=== PATIENT | female | born 1960 | race Caucasian/White ===

== ENCOUNTER 2016-11-17 20:51 | Inpatient (IN) | payer MEDICARE ==
[2016-11-17] MEDS ORDERED: MORPHINE SULFATE 10 MG/ML INJ IV ONE (21:31)
[2016-11-17] MEDS ORDERED: ONDANSETRON HCL INJ/PF 4 MG/2 ML SDV IV ONE (21:32)
--- NOTE | 2016-11-17 21:38 | ER Document Report ---
ED General - General Chief Complaint: Shortness Of Breath Stated Complaint: SHORTNESS OF BREATH Time Seen by Provider: 11/17/16 21:24 Notes: Patient is a 55-year-old female that comes emergency department for chief complaint of difficulty breathing, she states that this came on her suddenly about 2 hours ago where she felt like she could not inhale a full breath. She denies cough, wheezing, fever. She states she also feels like she has a painful band across the top of her abdomen which is new. She denies vomiting, diarrhea, states she had a normal bowel movement. Past medical history of cervical and uterine cancer, currently on chemotherapy, had her first dose, she is oncology in [place]. Only other reported medical history is hypertension. She denies ever smoking, she denies COPD or asthma, she denies recent lower extremity swelling, she denies history of blood clot. TRAVEL OUTSIDE OF THE [place] IN LAST 30 DAYS: No - Related Data Allergies/Adverse Reactions: No Known Allergies Allergy (Verified 11/17/16 20:56) Past Medical History - General Information source: Patient - Social History Smoking Status: Never Smoker Frequency of alcohol use: None Drug Abuse: None Lives with: Family Family History: Reviewed & Not Pertinent - Past Medical History Cardiac Medical History: Reports: Hx Hypertension Renal/ Medical History: Denies: Hx Peritoneal Dialysis Malignancy Medical History: Reports: Hx Cervical Cancer, Other - uterine cancer Musculoskeltal Medical History: Reports Hx Arthritis Past Surgical History: Reports: Hx Gastric Bypass Surgery, Hx Neurologic Surgery - CARPAL TUNNEL - Immunizations Hx Diphtheria, Pertussis, Tetanus Vaccination: Yes Review of Systems - Review of Systems Constitutional: See HPI EENT: No symptoms reported Cardiovascular: No symptoms reported Respiratory: See HPI Gastrointestinal: See HPI Genitourinary: No symptoms reported Female Genitourinary: No symptoms reported Musculoskeletal: No symptoms reported Skin: No symptoms reported Hematologic/Lymphatic: No symptoms reported Neurological/Psychological: No symptoms reported Physical Exam - Vital signs Vitals: Pulse Resp BP Pulse Ox 93 24 H 91/55 L 100 11/17/16 20:56 11/17/16 20:56 11/17/16 20:56 11/17/16 20:56 Interpretation: Normal - General General appearance: Appears well, Alert In distress: None - HEENT Head: Normocephalic, Atraumatic Eyes: Normal Pupils: PERRL - Respiratory Respiratory status: No respiratory distress. No: Labored Chest status: Nontender. No: Tender Breath sounds: Normal. No: Decreased air movement, Wheezing Chest palpation: Normal - Cardiovascular Rhythm: Regular. No: Tachycardia Heart sounds: Normal auscultation, S1 appreciated, S2 appreciated Murmur: No - Abdominal Inspection: Normal Distension: No distension Bowel sounds: Hypoactive Tenderness: Tender - Generalized tenderness in the upper abdomen Organomegaly: No organomegaly - Back Back: Normal, Nontender. No: Tender, CVA tenderness - Extremities General upper extremity: Normal inspection, Nontender, Normal color, Normal ROM , Normal temperature General lower extremity: Normal inspection, Nontender, Normal color, Normal ROM , Normal temperature, Normal weight bearing. No: Robin's sign - Neurological Neuro grossly intact: Yes Cognition: Normal Orientation: AAOx4 [place] Coma Scale Eye Opening: Spontaneous [place]im Coma Scale Verbal: Oriented Nasim Coma Scale Motor: Obeys Commands Nasim Coma Scale Total: 15 Speech: Normal Motor strength normal: LUE, RUE, LLE, RLE Sensory: Normal - Psychological Associated symptoms: Normal affect, Normal mood - Skin Skin Temperature: Warm Skin Moisture: Dry Skin Color: Normal Course - Re-evaluation Re-evalutation: On initial exam patient with no tachypnea or respiratory distress, clear lungs, no hypoxia on room air. She does have upper abdominal tenderness with slightly decreased bowel sounds. Patient has had multiple bowel surgeries including gastric bypass and has had bowel obstruction once before which was surgically repaired. As a result acute abdominal series performed, shows clear lungs, shows possible developing obstruction. CBC shows leukopenia likely secondary to therapy. Patient is afebrile, she is not tachycardic, blood pressure is slightly low. Patient is very well-appearing , nontoxic. Given IV fluids. Given pain medicine and nausea medicine on request. Chemistry showing acute renal insufficiency which is new for the patient. She has had decreased oral intake. Urinalysis obtained, shows evidence of infection , culture placed, given Rocephin. Tolerated contrast well, CAT scan performed, patient is asking for additional pain medicine, after this was given her blood pressure dropped slightly, will give additional fluids. CAT scan showing possible ileus with nonspecific distention of the transverse colon, no obstruction, no acute concerning abnormalities. Patient was discussed with Dr. Clements. Will discuss with Dr. Padilla for admission. Patient is very agreeable with this. Discussed with Dr. Padilla, patient will be admitted to the [facility]. - Vital Signs Vital signs: Temp Pulse Resp BP Pulse Ox 93 13 91/72 L 100 11/17/16 20:56 11/18/16 04:30 11/18/16 04:30 11/18/16 04:05 - Laboratory Result Diagrams: 11/17/16 21:30 11/18/16 03:14 Laboratory results interpreted by me: 11/17/16 11/17/16 11/17/16 21:30 21:30 21:30 WBC 2.8 L Hgb 11.1 L Hct 33.9 L RDW 17.5 H Eosinophils % 7.0 H Absolute Neutrophils 1.5 L D-Dimer Carbon Dioxide 21 L BUN 28 H Creatinine 2.28 H Est GFR ( Amer) 27 L Est GFR (Non-Af Amer) 22 L Glucose 122 H Direct Bilirubin 0.5 H Alkaline Phosphatase 136 H Total Protein 8.4 H TSH 8.84 H Urine Blood Ur Leukocyte Esterase Urine Ascorbic Acid 11/17/16 11/18/16 21:30 00:58 WBC Hgb Hct RDW Eosinophils % Absolute Neutrophils D-Dimer 3.28 H Carbon Dioxide BUN Creatinine Est GFR ( Amer) Est GFR (Non-Af Amer) Glucose Direct Bilirubin Alkaline Phosphatase Total Protein TSH Urine Blood SMALL H Ur Leukocyte Esterase LARGE H Urine Ascorbic Acid 40 H Discharge - Discharge Clinical Impression: Acute renal insufficiency Abdominal pain Qualifiers: Abdominal location: upper abdomen, unspecified Qualified Code(s): R10.10 - Upper abdominal pain, unspecified Urinary tract infection Qualifiers: Urinary tract infection type: site unspecified Qualified Code(s): N39.0 - Urinary tract infection, site not specified Condition: Fair Disposition: ADMITTED INPATIENT Admitting Provider: Hospitalist Unit Admitted: [facility]
[2016-11-17 21:40] LABS: ABSOLUTE EOSINOPHILS # (AUTO) 0.2 10^3/uL (0.0-0.6); ABSOLUTE LYMPHOCYTES (AUTO) 0.9 10^3/uL (0.5-4.7); ABSOLUTE MONOCYTES (AUTO) 0.2 10^3/uL (0.1-1.4); ABSOLUTE NEUT (AUTO) 1.5 10^3/uL (1.7-8.2); BASOPHILS % (AUTO) 0.9 % (0-2); HEMATOCRIT 33.9 % (36.0-47.0); HEMOGLOBIN 11.1 g/dL (12.0-15.5); HGB HCT DIFFERENCE -0.6; LYMPHOCYTES % (AUTO) 30.9 % (13-45); MEAN CORPUSCULAR HGB CONC 32.8 g/dL (32.0-36.0); MEAN CORPUSCULAR VOLUME 85 fl (80-97); MONOCYTES % (AUTO) 5.6 % (3-13); RED BLOOD COUNT 3.98 10^6/uL (3.72-5.28); RED CELL DISTRIBUTION WIDTH 17.5 % (11.5-14.0); SEGMENTED NEUTROPHILS % (AUTO) 55.6 % (42-78); WHITE BLOOD COUNT 2.8 10^3/uL (4.0-10.5)
[2016-11-17] MEDS ORDERED: NORMAL SALINE 1000 ML 1,000 ML IV ONE (22:11)
[2016-11-17 22:13] LABS: CREATINE KINASE MB 1.05 ng/mL (<4.55)
--- NOTE | 2016-11-17 22:13 | RADIOLOGY REPORT (SQ) ---
EXAM DESCRIPTION: ACUTE ABDOMEN SERIES COMPLETED DATE/TIME: 11/17/2016 9:57 pm REASON FOR STUDY: shortness of breath, upper abd pain, surgeries COMPARISON: None. NUMBER OF VIEWS: Three views. TECHNIQUE: Frontal chest, supine abdomen and upright/decubitus abdomen radiographic images acquired. LIMITATIONS: None. FINDINGS: CHEST: Lungs clear of infiltrates. FREE AIR: None. No abnormal gas collections. BOWEL GAS PATTERN: Multiple air and fluid filled bowel loops are identified with air-fluid levels on the erect film and I cannot exclude an early or developing small bowel obstruction. CALCIFICATIONS: No suspicious calcifications. HARDWARE: None in the abdomen. SOFT TISSUES: No gross mass or suggestion of organomegaly. BONES: No acute fracture. No worrisome bone lesions. OTHER: No other significant finding. IMPRESSION: Multiple air and fluid filled bowel loops as noted above with air-fluid levels on the er ect film and I cannot exclude an early or developing small bowel obstruction. TECHNICAL DOCUMENTATION: JOB ID: [id number] [employer]- All Rights Reserved
[2016-11-17 22:15] LABS: ALANINE AMINOTRANSFERASE 18 U/L (9-52); ALBUMIN 4.8 g/dL (3.5-5.0); ALKALINE PHOSPHATASE 136 U/L (38-126); ANION GAP 18 (5-19); ASPARTATE AMINO TRANSFERASE 35 U/L (14-36); BILIRUBIN,DIRECT 0.5 mg/dL (0.0-0.4); BILIRUBIN,TOTAL 0.5 mg/dL (0.2-1.3); BLOOD UREA NITROGEN 28 mg/dL (7-20); CALCIUM 9.2 mg/dL (8.4-10.2); CARBON DIOXIDE 21 mmol/L (22-30); CHLORIDE 103 mmol/L (98-107); CREATINE KINASE 52 U/L (30-135); CREATININE RESULT 2.28 mg/dL (0.52-1.25); GLUCOSE 122 mg/dL (75-110); LIPASE 123.6 U/L (23-300); POTASSIUM 4.4 mmol/L (3.6-5.0); SODIUM 141.5 mmol/L (137-145); TOTAL PROTEIN 8.4 g/dL (6.3-8.2)
[2016-11-17 22:18] LABS: TROPONIN I < 0.012 ng/mL
[2016-11-18] MEDS ORDERED: MORPHINE SULFATE 10 MG/ML INJ IV ONE ×2 (00:29→08:00)
[2016-11-18] MEDS ORDERED: NORMAL SALINE 1000 ML 1,000 ML IV ONE ×3 (00:29→03:31)
[2016-11-18 01:11] LABS: APPEARANCE,URINE CLOUDY; BILIRUBIN,URINE NEGATIVE (NEGATIVE); GLUCOSE, URINE NEGATIVE (NEGATIVE); KETONES,URINE NEGATIVE (NEGATIVE); LEUKOCYTE ESTERASE,URINE LARGE (NEGATIVE); NITRITE,URINE NEGATIVE (NEGATIVE); PROTEIN,URINE NEGATIVE (NEGATIVE); URINE SPECIFIC GRAVITY 1.028; UROBILINOGEN,URINE NEGATIVE mg/dL (<2.0)
--- NOTE | 2016-11-18 01:42 | RADIOLOGY REPORT (SQ) ---
EXAM DESCRIPTION: CT ABD/PELVIS ORAL ONLY COMPLETED DATE/TIME: 11/18/2016 1:18 am REASON FOR STUDY: upper abd pain, r/o bowel obstruction COMPARISON: CR, 11/17/2016. TECHNIQUE: CT scan of the abdomen and pelvis performed without intravenous or oral contrast. Images reviewed with lung, soft tissue, and bone windows. Reconstructed coronal and sagittal MPR images revi ewed. All images stored on PACS. All CT scanners at this facility use dose modulation, iterative reconstruction, and/or weight based d osing when appropriate to reduce radiation dose to as low as reasonably achievable (ALARA). [facility]: Dose Right [facility]: CareDose [facility]: Dose Right [facility]: Teradose 4D [facility]: Smart [employer] RADIATION DOSE: Up-to-date CT equipment and radiation dose reduction techniques were employed. CTDIv ol: 23.6 mGy. DLP: 1249 mGy-cm.mGy. LIMITATIONS: None. FINDINGS: LOWER CHEST: Small lingular atelectasis or scar. NON-CONTRASTED LIVER, SPLEEN, ADRENALS: Evaluation limited by lack of IV contrast. No identified sign ificant masses. Splenule. PANCREAS: No masses. No peripancreatic inflammatory changes. GALLBLADDER: Surgically absent. RIGHT KIDNEY AND URETER: No suspicious masses. Assessment limited by lack of IV contrast. No signif icant calcifications. No hydronephrosis or hydroureter. LEFT KIDNEY AND URETER: No suspicious masses. Assessment limited by lack of IV contrast. No signifi cant calcifications. No hydronephrosis or hydroureter. AORTA AND RETROPERITONEUM: No aneurysm. No retroperitoneal masses or adenopathy. BOWEL AND PERITONEAL CAVITY: Large colon measures up to 5.1 cm in diameter with air-fluid levels with in the transverse colon. Moderate-small left colonic and sigmoid stool retention. APPENDIX: No evidence of appendicitis. PELVIS, BLADDER, AND ABDOMINAL WALL:No abnormal masses. No free fluid. Bladder normal. BONES: Moderate L4-5 disc bulge. Small L3-4 disc bulge. OTHER: No other significant finding. IMPRESSION: Retained fluid within the large colon with mild to moderate nonspecific dilation of the large colon; differential etiologies include malabsorption, gastroenteritis, and nonspecific ileus. TECHNICAL DOCUMENTATION: JOB ID: [id number] Quality ID # [id number]: Final reports with documentation of one or more dose reduction techniques (e.g., Au tomated exposure control, adjustment of the mA and/or kV according to patient size, use of iterative reconstruction technique) 2010 [employer]- All Rights Reserved
[2016-11-18] MEDS ORDERED: CEFTRIAXONE 1 GM/D5W RTU 50 ML IV ONE (01:55)
[2016-11-18 02:30] LABS: ADD ON TESTING BLD IN LAB ACKNOWLEDGE
[2016-11-18 02:40] LABS: MAGNESIUM 2.3 mg/dL (1.6-2.3)
[2016-11-18] MEDS ORDERED: NORMAL SALINE 1000 ML 1,000 ML IV PRN ×2 (03:05→04:22)
[2016-11-18] MEDS ORDERED: IPRATROPIUM/ALBUTEROL 0.5-2.5 MG/3 ML AMPUL NEB PRN (03:08)
[2016-11-18] MEDS ORDERED: PHARMACY COMMUNICATION ORDER MC SCH (03:15)
[2016-11-18] MEDS ORDERED: ACETAMINOPHEN 325 MG TABLET PO PRN (03:16)
[2016-11-18] MEDS ORDERED: PROMETHAZINE HCL 25 MG TABLET PO PRN (03:16)
[2016-11-18 03:44] LABS: ANION GAP 13 (5-19); BLOOD UREA NITROGEN 31 mg/dL (7-20); CALCIUM 8.1 mg/dL (8.4-10.2); CARBON DIOXIDE 18 mmol/L (22-30); CHLORIDE 109 mmol/L (98-107); GLUCOSE 97 mg/dL (75-110); POTASSIUM 4.6 mmol/L (3.6-5.0); SODIUM 139.9 mmol/L (137-145)
--- NOTE | 2016-11-18 03:44 | PDOC H&P ---
History of Present Illness Admission Date/PCP: 11/18/16 02:[address] Su Christianson, [place] Onco Dr. Dumont, " Patient complains of: Shortness of breath upper abdominal pain History of Present Illness: KSENIA BROWN is a 55 year old female, who finished her first chemotherapy treatment November 08 of this year for combination of cervical and uterine cancer, who presents to the emergency room for sudden onset approximately 2 hours prior to presentation of combination of prominent shortness of breath and pronounced upper abdominal pain. Patient has been discussed with emergency room nurse practitioner who evaluated the patient. Patient was described as combination of burning and sharp, like a "painful band " across her upper abdomen. Certain movements perhaps made the pain worse. Now that the pain has mostly resolved, her shortness of breath has likewise resolved. Lowest systolic blood pressure is 84, obtained just prior to 2 AM, as patient was receiving 2 L bolus of normal saline. Pressures have responded nicely to IV fluids. Denies nausea vomiting, fever or chills, diarrhea or dysuria. Rare urinary tract infection. Status post total abdominal hysterectomy and likely bilateral salpingo- oophorectomy October 13 of this year. Has had a good appetite. No bowel movement for 3 days. However, she states she has been alternating between constipation and loose stools for some time now. Negative cardiac history other than hypertension, with no previous myocardial infarction, congestive heart failure, atrial flutter fibrillation, pulmonary embolus, or DVT. Status post gastric bypass in 2003, complicated by postoperative acute renal failure, with subsequent complete resolution of same, and no recurrence. Has also undergone exploratory laparotomy for small bowel obstruction, herniorrhaphy 2, along with cholecystectomy. Currently resting quietly. Still having some mild abdominal discomfort. Shortness of breath has completely resolved. Dictation via voice recognition software. Laboratory results are listed in [employer] and are reviewed. X-ray summary results are listed below, with full report(s) reviewed. . EKG reviewed and compared to a prior tracing from February 272014.. Social history/personal habits: . Retired. Has children. No use of alcohol tobacco or illicit drugs. No known drug allergies Home medications initially autopopulated into [employer] may not accurately reflect patient's true medications, dosages, and/or frequencies. semiconductor processing technician to reconcile medications. Unfortunately, patient not certain of all medications/dosages/frequencies. REVIEW OF SYSTEMS: Constitutional: No fever or chills. Eyes: No vision complaints. ENT: No swallowing problems or complaints. Partial hearing loss. Pulmonary: See history and present illness. Cardiovascular: No current complaints, including chest pain. Gastrointestinal: See history and present illness. Skin: No current complaints, including rashes. Hematologic: Denies easy bruising. Neurologic: No current complaints, including numbness or tingling. Musculoskeletal: Joint pain from arthritis. Psychiatric: Denies anxiety or depression. Endocrine: No current complaints, including polyuria. Genitourinary: No current complaints, including dysuria. PHYSICAL EXAMINATION: 5 feet 2 inches tall. 73.8 kg. BMI 29.8 kg/m. Blood pressure 112/59. Pulse 92 and regular. Respirations are 17 and unlabored. 96 Percent saturation on room air. Temperature not recorded on chart; skin feels normothermic. Slightly overweight otherwise well-nourished well-developed though chronically ill-appearing female who appears a number of years older than her stated age. Pleasant awake alert and cooperative. Appears perhaps slightly fatigued. is present at her side; patient approves. Female emergency room nurse Es is present. Skin is warm and dry. No grossly obvious evidence of rash in areas of skin examined. No subcutaneous nodules palpated. ENT: Hearing grossly normal to normal conversation. Tongue midline on protrusion pink and slightly moist. Eyes: No scleral icterus. Pupils equal and reactive to light at [address] [place] conjunctivae. Neck is supple and nontender to gentle active range of motion and palpation. Midline trachea. No palpable thyroid nodule mass enlargement or tenderness. Lymphatic: No palpable cervical or clavicular nodes. Neck and lymphatic exams limited by patient body habitus. Psychiatric: Reasonable insight into acute and chronic medical issues. Oriented to time location and why here. Lungs: Auscultation reveals clear and equal breath sounds bilaterally. No use of accessory respiratory muscles. Cardiovascular: Heart regular rate and rhythm, without gallop murmur or rub. No carotid or abdominal aortic bruits. No ankle or pedal edema. Faintly palpable dorsalis pedis pulses. Abdomen:soft slightly distended with occasional bowel sounds. Very mild diffuse mostly upper abdominal discomfort to palpation. Certainly no evidence of guarding or peritoneal signs. Unable to adequately evaluate abdomen for masses or organomegaly due to distention and discomfort. Extremities: Feet are warm and dry. No calf tenderness to compression. No grossly obvious visual evidence of calf swelling. Gentle manipulation of lower extremities fails to reveal any obvious evidence of injury or instability to knees hips or ankles. Neurologic: Moves all 4 extremities grossly normally. Patellar reflexes absent. Absent Babinski. Light touch is intact at feet. Dorsiflexion and plantarflexion of feet 5 / 5 and symmetric. Past Medical History Cardiac Medical History: Reports: Hypertension Denies: Atrial Fibrillation, Congestive Heart Failure, DVT, Myocardial Infarction, Hyperlipidema, Pulmonary Embolism Pulmonary Medical History: Denies: Asthma, Chronic Obstructive Pulmonary Disease (COPD), Sleep Apnea EENT Medical History: Reports: Ears - Partial hearing loss Denies: Eyes, Throat Neurological Medical History: Denies: Hemorrhagic CVA, Ischemic CVA, Seizures Endocrine Medical History: Denies: Diabetes Mellitus Type 1, Diabetes Mellitus Type 2, Hyperthyroidism, Hypothyroidism Renal/ Medical History: Reports: Other - Rare urinary tract infection Malignancy Medical History: Reports: Cervical Cancer, Other - Uterine GI Medical History: Denies: Cirrhosis, Gastroesophageal Reflux Disease, Hepatitis, Peptic Ulcer Disease Musculoskeltal Medical History: Reports: Arthritis Skin Medical History: Reports: None Psychiatric Medical History: Reports: Depression - History of, General Anxiety Disorder - History of Denies: Alcohol Dependency, Substance Abuse, Tobacco Dependency Hematology: Reports: None Infectious Medical History: Denies: Hepatitis B, Hepatitis C Past Surgical History Past Surgical History: Reports: Cholecystectomy, Gastric Bypass Surgery, Herniorrhaphy - 2, Hysterectomy - September 2016 for combination uterine and cervical cancer., Other - Exploratory laparotomy for small bowel obstruction since gastric bypass Social History Information Source: Patient, Emergency Med Personnel, [facility] Lives with: Spouse/Significant other Smoking Status: Unknown if Ever Smoked Frequency of Alcohol Use: None Drugs: None - Advance Directive Resuscitation Status: Full Code Surrogate healthcare decision maker:: Family History Family History: Reviewed & Not Pertinent Parental Family History Reviewed: Yes - Father of multiple myeloma; mother of vascular disease. Children Family History Reviewed: Yes - Healthy Sibling(s) Family History Reviewed.: Yes - Healthy Medication/Allergy Home Medications: Dicyclomine HCl [Bentyl 10 mg Capsule] 10 mg PO Q12HP PRN 11/18/16 Escitalopram Oxalate [Lexapro 10 mg Tablet] 10 mg PO DAILY 11/18/16 Gabapentin 600 mg PO Q8 11/18/16 Lisinopril 40 mg PO DAILY 11/18/16 Ondansetron [Zofran Odt 4 mg Tablet] 8 mg PO Q8 11/18/16 Oxycodone HCl/Acetaminophen [Oxycodone-Acetaminophen 5-325] 1 each PO Q12HP PRN 11/18/16 Prochlorperazine Maleate [Compazine 10 mg Tablet] 10 mg PO Q6HP PRN 11/18/16 Zolpidem Tartrate [Ambien 5 mg Tablet] 5 mg PO HSP PRN 11/18/16 Levofloxacin [Levaquin 750 mg Tablet] 750 mg PO DAILY #5 tablet 11/22/16 Quetiapine Fumarate 25 mg PO QHS #0 11/22/16 Allergies/Adverse Reactions: No Known Allergies Allergy (Verified 11/17/16 20:56) Physical Exam Vital Signs: Temp Pulse Resp BP Pulse Ox 93 19 105/67 100 11/17/16 20:56 11/18/16 01:00 11/18/16 00:07 11/18/16 01:00 Intake & Output 11/17/16 11/18/16 11/19/16 00:59 00:59 00:59 Intake Total 120 Balance 120 Results Impressions: Acute Abdomen Series 11/17/16 21:31 IMPRESSION: Multiple air and fluid filled bowel loops as noted above with air- fluid levels on the erect film and I cannot exclude an early or developing small bowel obstruction. Abdomen/Pelvis CT 11/18/16 00:00 IMPRESSION: Retained fluid within the large colon with mild to moderate nonspecific dilation of the large colon; differential etiologies include malabsorption, gastroenteritis, and nonspecific ileus. Assessment & Plan - Diagnosis (1) ARF (acute renal failure) Qualifiers: Acute renal failure type: unspecified Qualified Code(s): N17.9 - Acute kidney failure, unspecified Is this a current diagnosis for this admission?: YesPlan: Suspect a side effect of chemotherapy. IV fluid. Serial chemistry. (2) Abdominal pain Qualifiers: Abdominal location: upper abdomen, unspecified Qualified Code(s): R10.10 - Upper abdominal pain, unspecified Is this a current diagnosis for this admission?: YesPlan: As needed pain medication. (3) Cervical cancer Qualifiers: Malignant neoplasm of cervix location: endocervix Qualified Code(s) : C53.0 - Malignant neoplasm of endocervix Is this a current diagnosis for this admission?: Yes (4) Hypotension Qualifiers: Hypotension type: unspecified hypotension type Qualified Code(s): I95.9 - Hypotension, unspecified Is this a current diagnosis for this admission?: YesPlan: Initially good response to IV fluid boluses. However, approximately long term through her third bolus, systolic pressures dropped into the low to mid 80s. Decision made to transfer patient to intensive care unit, along with Huynh catheter insertion. 85 critical-care minutes. (5) On antineoplastic chemotherapy Is this a current diagnosis for this admission?: YesPlan: Oncology consult. (6) SOB (shortness of breath) Is this a current diagnosis for this admission?: YesPlan: Likely simply secondary to her abdominal discomfort. However, with known malignancy, will check d-dimer, with ventilation perfusion lung scan if elevated. (7) Urinary tract infection Qualifiers: Urinary tract infection type: site unspecified Is this a current diagnosis for this admission?: YesPlan: Blood and urine cultures. Given hypotension, acute renal failure, and recent chemotherapy, will proceed with Zosyn. I have strongly encouraged patient not to get out of bed without notifying staff , to avoid a fall with injury. Knee high SCDs for DVT prophylaxis, along with subcutaneous heparin. Impression and plans were discussed with patient and , both of whom concur. (8) Uterine cancer Qualifiers: Malignant neoplasm of body of uterus location: unspecified location Is this a current diagnosis for this admission?: Yes (9) Septic shock Is this a current diagnosis for this admission?: YesPlan: Will add intravenous vancomycin also. Pharmacy to assist with dosing. - Time Critical Time spent with patient: 35 or more minutes Anticipated discharge: Home Within: Other - Inpatient Certification Based on my medical assessment, after consideration of the patient's comorbidities, presenting symptoms, or acuity I expect that the services needed warrant INPATIENT care.: Yes I certify that my determination is in accordance with my understanding of Medicare's requirements for reasonable and necessary INPATIENT services [42 CFR 412.3e].: Yes Medical Necessity: Need Close Monitoring Due to Risk of Patient Decompensation, Need For IV Fluids, Need For Continuous Telemetry Monitoring, Need for IV Antibiotics, Risk of Diagnosis Which Will Require Inpatient Eval/Care/Monitoring Post Hospital Care: D/C or Transfer Summary
[2016-11-18] MEDS ORDERED: PIPERACILLIN/TAZOBACTAM 3.375 GM VIAL IV PRN (03:45)
[2016-11-18] MEDS ORDERED: PIPERACILLIN SODIUM/TAZOBACTAM 3.375 GM in NORMAL SALINE 100 ML IV ONE (03:45)
[2016-11-18] MEDS ORDERED: GLUCAGON,HUMAN RECOMB 1 MG INJ IM PRN (04:17)
[2016-11-18] MEDS ORDERED: DEXTROSE 50%-WATER 25 GM/50 ML DISP.SYRIN IV PRN ×2 (04:17)
[2016-11-18] MEDS ORDERED: DEXTROSE 5%-WATER 250 ML with NOREPINEPHRINE BITARTRATE 4 MG IV PRN ×2 (04:17)
[2016-11-18] MEDS ORDERED: DEXTROSE 40% GEL 15 GM TUBE PO PRN ×2 (04:17)
[2016-11-18] MEDS ORDERED: ACETAMINOPHEN 650 MG SUPP.RECT PR PRN (04:20)
[2016-11-18] MEDS ORDERED: PROMETHAZINE HCL 25 MG SUPP.RECT PR PRN ×2 (04:21→08:59)
[2016-11-18] MEDS ORDERED: PIPERACILLIN/TAZOBACTAM 3.375 GM VIAL IV ONE (05:06)
[2016-11-18 05:58] LABS: ABSOLUTE EOSINOPHILS # (AUTO) 0.1 10^3/uL (0.0-0.6); ABSOLUTE LYMPHOCYTES (AUTO) 0.2 10^3/uL (0.5-4.7); ABSOLUTE MONOCYTES (AUTO) 0.1 10^3/uL (0.1-1.4); ABSOLUTE NEUT (AUTO) 0.2 10^3/uL (1.7-8.2); BASOPHILS % (AUTO) 1.3 % (0-2); EOSINOPHILS % (AUTO) 10.2 % (0-6); HEMATOCRIT 26.3 % (36.0-47.0); HGB HCT DIFFERENCE -0.2; LYMPHOCYTES % (AUTO) 37.4 % (13-45); MEAN CORPUSCULAR HEMOGLOBIN 28.1 pg (27.0-33.4); MEAN CORPUSCULAR HGB CONC 33.1 g/dL (32.0-36.0); MEAN CORPUSCULAR VOLUME 85 fl (80-97); MONOCYTES % (AUTO) 20.2 % (3-13); RED CELL DISTRIBUTION WIDTH 17.1 % (11.5-14.0); SEGMENTED NEUTROPHILS % (AUTO) 30.9 % (42-78)
[2016-11-18 06:07] LABS: HEMOGLOBIN 8.7 g/dL (12.0-15.5)
[2016-11-18 06:08] LABS: WHITE BLOOD COUNT 0.7 10^3/uL (4.0-10.5)
[2016-11-18 06:09] LABS: ANISOCYTOSIS 1+; BURR CELLS SLIGHT; OVALOCYTES SLIGHT; POIKILOCYTOSIS SLIGHT; SCHISTOCYTES SLIGHT; TEAR DROP CELLS SLIGHT; TOXIC GRANULATION 1+
--- NOTE | 2016-11-18 07:01 | RADIOLOGY REPORT (SQ) ---
EXAM DESCRIPTION: NM LUNG VENT/PERF SCAN COMPLETED DATE/TIME: 11/18/2016 6:25 am REASON FOR STUDY: elev d dimer COMPARISON: None. RADIONUCLIDE AND DOSE: 4.7 millicuries TC-99m MAA Intravenous 27.4 millicuries TC-99m DTPA Inhaled aerosol TECHNIQUE: Eight views of the lungs acquired post ventilation of DTPA aerosol. Eight matching views of the lungs acquired following injection of MAA. LIMITATIONS: None. FINDINGS: VENTILATION: Symmetric and homogeneous distribution of DTPA aerosol during ventilatory pha se. No significant areas of photopenia. PERFUSION: Perfusion images with normal homogenous activity and no wedge-shaped or segmental defects. No ventilation-perfusion mismatches. OTHER: No other significant finding. IMPRESSION: NORMAL VENTILATION-PERFUSION LUNG SCAN. NEGATIVE FOR PULMONARY EMBOLI. TECHNICAL DOCUMENTATION: JOB ID: [id number] [employer]- All Rights Reserved
[2016-11-18] MEDS ORDERED: VANCOMYCIN HCL 0 MG in DEXTROSE 5%-WATER 250 ML IV NR (07:30)
[2016-11-18 07:34] LABS: PROTHROMBIN TIME 13.4 SEC (11.4-15.4)
[2016-11-18 07:35] LABS: PARTIAL THROMBOPLASTIN TIME 33.2 SEC (23.5-35.8)
[2016-11-18 07:40] LABS: ANION GAP 13 (5-19); BLOOD UREA NITROGEN 27 mg/dL (7-20); CALCIUM 7.5 mg/dL (8.4-10.2); CARBON DIOXIDE 17 mmol/L (22-30); CHLORIDE 111 mmol/L (98-107); CREATININE RESULT 1.68 mg/dL (0.52-1.25); GLUCOSE 81 mg/dL (75-110); POTASSIUM 4.3 mmol/L (3.6-5.0); SODIUM 140.7 mmol/L (137-145)
--- NOTE | 2016-11-18 08:41 | PDOC CONSULTATION ---
Consultation Consult Date: 11/18/16 Attending physician:: LETI VÁSQUEZ Consult reason:: Known hx likely stage 3 cervical ca s/p cycle #1 quinault based chemo 1 wk ago w/ sepsis, abd pain, weakness, SOB History of Present Illness Admission Date/PCP: 11/18/16 03:08 Patient complains of: sepsis, abd pain, weakness, SOB History of Present Illness: 55-year-old female with recent diagnosis of what sounds like stage III cervical cancer, she has been seeing Dr. Jone [employer] Onc purvi,received cycle #1 of what sounds like quinault based chemotherapy, about 1 week ago, initially did well with that but over the last 2 days had increasing shortness of breath, weakness, abdominal pain, she did not have bowel movements for about 3 days prior to coming in, ultimately the shortness of breath got severe and she presented to the ED, at that time she was found to be hypertensive and tachycardic, CT of the abdomen pelvis indicated distention of the right colon concerning for early obstruction, but she did have a bowel movement yesterday in the ED mostly watery so she is not clinically obstructed. She was passing gas prior to coming in. She does have history of small bowel obstruction, status post gastric bypass. She did not receive any Neulasta support with chemotherapy. The plan was for her to receive 3 cycles of chemotherapy followed by radiation followed by 3 further cycles of chemotherapy. This is a common sandwich type approach that we used for cervical cancer. Today she is neutropenic. She does officially for criteria for sepsis as well and is on broad-spectrum antibiotics with Zosyn and vancomycin. Past Medical History Cardiac Medical History: Reports: Hypertension Denies: Atrial Fibrillation, Congestive Heart Failure, DVT, Myocardial Infarction, Hyperlipidema, Pulmonary Embolism Pulmonary Medical History: Denies: Asthma, Chronic Obstructive Pulmonary Disease (COPD), Sleep Apnea EENT Medical History: Reports: Ears - Partial hearing loss Denies: Eyes, Throat Neurological Medical History: Denies: Hemorrhagic CVA, Ischemic CVA, Seizures Endocrine Medical History: Denies: Diabetes Mellitus Type 1, Diabetes Mellitus Type 2, Hyperthyroidism, Hypothyroidism Renal/ Medical History: Reports: Other - Rare urinary tract infection Malignancy Medical History: Reports: Cervical Cancer, Other - Uterine GI Medical History: Denies: Cirrhosis, Gastroesophageal Reflux Disease, Hepatitis, Peptic Ulcer Disease Musculoskeltal Medical History: Reports: Arthritis Skin Medical History: Reports: None Psychiatric Medical History: Reports: Depression - History of, General Anxiety Disorder - History of Denies: Alcohol Dependency, Substance Abuse, Tobacco Dependency Hematology: Reports: None Infectious Medical History: Denies: Hepatitis B, Hepatitis C Past Surgical History Past Surgical History: Reports: Cholecystectomy, Gastric Bypass Surgery, Herniorrhaphy - 2, Hysterectomy - September 2016 for combination uterine and cervical cancer., Other - Exploratory laparotomy for small bowel obstruction since gastric bypass Social History Lives with: Spouse/Significant other Smoking Status: Unknown if Ever Smoked Frequency of Alcohol Use: None Hx Recreational Drug Use: No Drugs: None - Advance Directive Resuscitation Status: Full Code Family History Family History: Reviewed & Not Pertinent Parental Family History Reviewed: Yes Children Family History Reviewed: Yes Sibling(s) Family History Reviewed.: Yes Medication/Allergy Allergies/Adverse Reactions: No Known Allergies Allergy (Verified 11/17/16 20:56) Review of Systems Constitutional: ABSENT: chills, fever(s), headache(s), weight gain, weight loss Eyes: ABSENT: visual disturbances Ears: ABSENT: hearing changes Cardiovascular: ABSENT: chest pain, dyspnea on exertion, edema, orthropnea, palpitations Respiratory: ABSENT: cough, hemoptysis Gastrointestinal: ABSENT: abdominal pain, constipation, diarrhea, hematemesis, hematochezia, nausea, vomiting Genitourinary: ABSENT: dysuria, hematuria Musculoskeletal: ABSENT: joint swelling Integumentary: ABSENT: rash, wounds Neurological: ABSENT: abnormal gait, abnormal speech, confusion, dizziness, focal weakness, syncope Psychiatric: ABSENT: anxiety, depression, homidical ideation, suicidal ideation Endocrine: ABSENT: cold intolerance, heat intolerance, polydipsia, polyuria Hematologic/Lymphatic: ABSENT: easy bleeding, easy bruising Physical Exam Vital Signs: Temp Pulse Resp BP Pulse Ox 97.5 F 87 24 H 101/58 L 100 11/18/16 08:00 11/18/16 08:00 11/18/16 08:00 11/18/16 08:00 11/18/16 08:00 Intake & Output 11/17/16 11/18/16 11/19/16 06:59 06:59 06:59 Intake Total 2120 Output Total 125 225 Balance 1994 Weight 77.2 kg General appearance: PRESENT: no acute distress, well-developed, well-nourished Head exam: PRESENT: atraumatic, normocephalic Eye exam: PRESENT: conjunctiva pink, EOMI, PERRLA. ABSENT: scleral icterus Ear exam: PRESENT: normal external ear exam Mouth exam: PRESENT: moist, tongue midline Neck exam: ABSENT: carotid bruit, JVD, lymphadenopathy, thyromegaly Respiratory exam: PRESENT: clear to auscultation kami. ABSENT: rales, rhonchi, wheezes Cardiovascular exam: PRESENT: RRR. ABSENT: diastolic murmur, rubs, systolic murmur Pulses: PRESENT: normal dorsalis pedis pul Vascular exam: PRESENT: normal capillary refill GI/Abdominal exam: PRESENT: normal bowel sounds, soft. ABSENT: distended, guarding, mass, organolmegaly, rebound, tenderness Rectal exam: PRESENT: deferred Extremities exam: PRESENT: full ROM. ABSENT: calf tenderness, clubbing, pedal edema Neurological exam: PRESENT: alert, awake, oriented to person, oriented to place , oriented to time, oriented to situation, CN II-XII grossly intact. ABSENT: motor sensory deficit Psychiatric exam: PRESENT: appropriate affect, normal mood. ABSENT: homicidal ideation, suicidal ideation Skin exam: PRESENT: dry, intact, warm. ABSENT: cyanosis, rash Results Laboratory Results: 11/18/16 05:11 11/18/16 07:12 11/18/16 11/18/16 11/18/16 03:14 03:14 05:11 WBC Cancelled 0.7 L* D RBC Cancelled 3.10 L Hgb Cancelled 8.7 L D Hct Cancelled 26.3 L MCV Cancelled 85 MCH Cancelled 28.1 MCHC Cancelled 33.1 RDW Cancelled 17.1 H Plt Count Cancelled 145 L Seg Neutrophils % Cancelled 30.9 L Lymphocytes % Cancelled 37.4 Monocytes % Cancelled 20.2 H Eosinophils % Cancelled 10.2 H Basophils % Cancelled 1.3 Absolute Neutrophils Cancelled 0.2 L Absolute Lymphocytes Cancelled 0.2 L Absolute Monocytes Cancelled 0.1 Absolute Eosinophils Cancelled 0.1 Absolute Basophils Cancelled 0.0 Sodium 139.9 Potassium 4.6 Chloride 109 H Carbon Dioxide 18 L Anion Gap 13 BUN 31 H Creatinine 2.00 H Est GFR ( Amer) 31 L Est GFR (Non-Af Amer) 26 L Glucose 97 Calcium 8.1 L 11/18/16 07:12 WBC RBC Hgb Hct MCV MCH MCHC RDW Plt Count Seg Neutrophils % Lymphocytes % Monocytes % Eosinophils % Basophils % Absolute Neutrophils Absolute Lymphocytes Absolute Monocytes Absolute Eosinophils Absolute Basophils Sodium 140.7 Potassium 4.3 Chloride 111 H Carbon Dioxide 17 L Anion Gap 13 BUN 27 H Creatinine 1.68 H Est GFR ( Amer) 38 L Est GFR (Non-Af Amer) 31 L Glucose 81 Calcium 7.5 L Impressions: Acute Abdomen Series 11/17/16 21:31 IMPRESSION: Multiple air and fluid filled bowel loops as noted above with air- fluid levels on the erect film and I cannot exclude an early or developing small bowel obstruction. Abdomen/Pelvis CT 11/18/16 00:00 IMPRESSION: Retained fluid within the large colon with mild to moderate nonspecific dilation of the large colon; differential etiologies include malabsorption, gastroenteritis, and nonspecific ileus. Lung Scan-VQ NM 11/18/16 03:46 IMPRESSION: NORMAL VENTILATION-PERFUSION LUNG SCAN. NEGATIVE FOR PULMONARY EMBOLI. Assessment & Plan - Diagnosis (1) Septic shock Is this a current diagnosis for this admission?: YesPlan: Likely secondary to Neutropenic fever probably chemotherapy induced, organism yet unknown but being covered for both gram-positive and gram-negative organisms , we will initiate Neupogen, she did not receive Neulasta, we will change Zosyn to cefepime which is less myelosuppressive with similar coverage, continue with vancomycin until patient is culture negative for 48 hours. Once her ANC is greater than 1000 and patient is afebrile for 24 hours, cefepime can be tapered thereafter. 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 (3) Anemia associated with chemotherapy Is this a current diagnosis for this admission?: YesPlan: Likely multifactorial but chemo induced certainly, hold on transfusion until hemoglobin gets under 7 unless transfusion needed for oncotic pressure. - Time Time Spent: Greater than 70 Minutes Critical Time spent with patient: 35 or more minutes - Inpatient Certification Based on my medical assessment, after consideration of the patient's comorbidities, presenting symptoms, or acuity I expect that the services needed warrant INPATIENT care.: Yes I certify that my determination is in accordance with my understanding of Medicare's requirements for reasonable and necessary INPATIENT services [42 CFR 412.3e].: Yes Medical Necessity: Failure to Improve With Outpatient Therapy, Need For Continuous Telemetry Monitoring, Need for IV Antibiotics, Risk of Complication if Not Cared For in Hospital
[2016-11-18] MEDS ORDERED: ONDANSETRON HCL INJ/PF 4 MG/2 ML SDV IV PRN (08:59)
[2016-11-18] MEDS ORDERED: PIPERACILLIN SODIUM/TAZOBACTAM 3.375 GM in NORMAL SALINE 100 ML IV SCH ×4 (09:00)
[2016-11-18] MEDS ORDERED: VANCOMYCIN HCL 1,750 MG in DEXTROSE 5%-WATER 250 ML IV ONE (09:00)
[2016-11-18] MEDS ORDERED: VANCOMYCIN HCL 750 MG in DEXTROSE 5%-WATER 250 ML IV SCH (09:00)
[2016-11-18] MEDS: HEPARIN SOD (PORCINE) 5,000 UNIT/ML 1 ML SYRINGE SUBCUT SCH ×2 (09:36→22:03)
[2016-11-18] MEDS: NORMAL SALINE 1000 ML 1,000 ML IV PRN ×2 (09:37→12:56)
[2016-11-18] MEDS: DOCUSATE SODIUM 100 MG CAPSULE PO SCH ×2 (09:38→18:10)
--- NOTE | 2016-11-18 09:48 | PROGRESS NOTE E ---
Progress Note NAME: KSENIA BROWN : 1960 AGE: 55Y DATE: 11/18/2016 ROOM: 611 SUBJECTIVE: The patient remains in ICU. The patient is currently receiving a bolus. Overall clinical picture does appear improved. The patient has not required vasopressors overnight. The patient does admit to having had a liquid bowel movement after receiving contrast for CT scan. The patient denies any current nausea, vomiting. No shortness of breath currently. No dizziness, chest pain. No fevers, chills. The patient does admit to epigastric abdominal pain but feels it may be related to a combination of constipation and her prior surgery. The patient has been seen by Oncology and the case was discussed with him at the bedside. The patient has not had any fevers or chills, and the patient does not voice any other concerns at this time. REVIEW OF SYSTEMS: The rest of the review of systems is negative. MEDICATIONS: Medications have been reviewed. OBJECTIVE: GENERAL: The patient is a 55-year-old female who is awake, alert. She is oriented to person, place, time, and situation. She is verbal, conversational, does not appear to be in any acute distress. VITAL SIGNS: As follows: Temperature is 97.5, pulse 87, respirations 15, blood pressure is 101/58, oxygen saturation is 100% on room air. SKIN: Warm and dry. No rash, not diaphoretic. She is overall just generally pale. HEENT: Pupils equal, round, and reactive to light and accommodation. Conjunctivae pink. No JVP. CARDIOVASCULAR: Heart is regular. There is no murmur or rub. CHEST: Clear, symmetrical, unlabored. ABDOMEN: No area of focal tenderness. Diffusely tender in the upper quads. Bowel sounds are present. No sacral edema. EXTREMITIES: No clubbing, cyanosis, edema. PSYCHIATRIC: Appropriate affect, pleasant mood. DIAGNOSTICS: Lab values are as follows. Hematology obtained on 11/18/2016: WBCs are 0.7, hemoglobin is 8.7, hematocrit is 26.3, platelet count is 145,000. Coagulation obtained on 11/18/2016: PT is 30.4, INR is 0.95. Chemistry obtained on 11/18/2016: Sodium is 140, potassium 4.3, chloride 111, carbon dioxide 17, BUN 27, creatinine 1.68, glucose 81, calcium is 7.5, TSH is 8.84. Microbiology: Blood cultures obtained on 11/18/2016 are pending. Urine culture obtained on 11/18/2016 is pending. V/Q scan obtained on 11/18/2016 reveals normal V/Q scan. IMPRESSION AND PLAN: 1. NEUTROPENIC SEPTIC SHOCK. Overall the patient is much improved. Blood pressures are much better with hydration and the patient has not required vasopressors. The patient has no evidence of bandemia and has been afebrile. 2. CONSTIPATION VERSUS EARLY ILEUS. The patient states she has had watery bowel movements since her CT scan. Will obtain a KUB for further evaluation. The patient is not overtly tender and has not had any vomiting. Will start the patient on a bowel regimen and follow. 3. ELEVATED TSH. Will obtain T4. 4. CERVICAL CANCER. Management is per Oncology. 5. ANEMIA ASSOCIATED WITH CHEMOTHERAPY. The patient's hemoglobin dipped to 8.7. Do appreciate Oncology input with this. 6. OPIATE DEPENDENCY, CONTINUOUS. The patient will need to be placed on a bowel regimen. Will review and most likely resume the patient's home medications. 7. HYPERTENSION. The patient's creatinine is elevated. Will hold JUANI inhibitor for now. The patient is actually hypotensive at this time. 8. ACUTE RENAL FAILURE, MOST LIKELY DUE TO PRERENAL AZOTEMIA. It does appear to have improved with boluses. Will continue to aggressively hydrate, repeat chemistries and follow. DISPOSITION: THE PATIENT IS A FULL CODE. Pending the patient's symptomatology and diagnostic findings, will re-evaluate in the a.m. The patient can be downgraded to an [facility] bed. Time spent on this followup, including assessment/plan, physical examination, patient education, and specialty collaboration, is 50 minutes. DICTATING PHYSICIAN: CHINA STRAUSS NP [id number] PHY#: [id number] ID: [id number] JOB#: [id number] ACCT: [id number] cc: >
--- NOTE | 2016-11-18 09:54 | RADIOLOGY REPORT (SQ) ---
EXAM DESCRIPTION: KUB/ABDOMEN (SINGLE VIEW) COMPLETED DATE/TIME: 11/18/2016 9:30 am REASON FOR STUDY: FU CT since BM COMPARISON: 11/17/2016 NUMBER OF VIEWS: One view. TECHNIQUE: Supine radiographic image of the abdomen acquired. LIMITATIONS: None. FINDINGS: BOWEL GAS PATTERN: Oral contrast, gas and fecal material within nondilated colon. CALCIFICATIONS: No suspicious calcifications. SOFT TISSUES: No gross mass or suggestion of organomegaly. HARDWARE: Huynh catheter overlying urinary bladder. BONES: No bone lesions or fracture. OTHER: No other significant finding. IMPRESSION: No evidence of bowel obstruction.
[2016-11-18 11:13] LABS: PATH REVIEW PATHOLOGIST REVIEWED
[2016-11-18] MEDS: OXYCODONE-ACETAMINOPHEN 5-325 MG TABLET PO PRN ×2 (11:56→18:23)
[2016-11-18] MEDS ORDERED: FILGRASTIM INJ 300 MCG/1 ML VIAL SUBCUT SCH (12:00)
[2016-11-18] MEDS ORDERED: PIPERACILLIN SODIUM/TAZOBACTAM 2.25 GM in NORMAL SALINE 50 ML IV SCH (12:00)
[2016-11-18] MEDS: GABAPENTIN 300 MG CAPSULE PO SCH ×2 (14:39→22:04)
--- NOTE | 2016-11-18 17:27 | EKG REPORT ---
SEVERITY:- ABNORMAL ECG - SINUS RHYTHM NONSPECIFIC T ABNORMALITIES, LATERAL LEADS : Confirmed by: Meli Rocha MD 18-Nov-2016 17:26:23
[2016-11-18] MEDS: CEFEPIME 2 GM/D5W RTU 2 GM/50 ML RTUPB IV SCH (18:09)
[2016-11-18] MEDS: QUETIAPINE FUMARATE 25 MG TABLET PO SCH (22:03)
[2016-11-19] MEDS: OXYCODONE-ACETAMINOPHEN 5-325 MG TABLET PO PRN ×4 (01:35→20:07)
[2016-11-19 04:41] LABS: MEAN CORPUSCULAR HGB CONC 33.2 g/dL (32.0-36.0); MEAN CORPUSCULAR VOLUME 84 fl (80-97); RED BLOOD COUNT 2.85 10^6/uL (3.72-5.28); RED CELL DISTRIBUTION WIDTH 17.7 % (11.5-14.0)
[2016-11-19 04:52] LABS: ALANINE AMINOTRANSFERASE 153 U/L (9-52); ALBUMIN 2.8 g/dL (3.5-5.0); ALKALINE PHOSPHATASE 155 U/L (38-126); ANION GAP 7 (5-19); ASPARTATE AMINO TRANSFERASE 124 U/L (14-36); BILIRUBIN,DIRECT 0.3 mg/dL (0.0-0.4); BILIRUBIN,TOTAL 0.3 mg/dL (0.2-1.3); BLOOD UREA NITROGEN 13 mg/dL (7-20); CALCIUM 8.2 mg/dL (8.4-10.2); CARBON DIOXIDE 19 mmol/L (22-30); CHLORIDE 117 mmol/L (98-107); CREATININE RESULT 0.89 mg/dL (0.52-1.25); GLUCOSE 87 mg/dL (75-110); POTASSIUM 4.8 mmol/L (3.6-5.0); SODIUM 142.5 mmol/L (137-145); TOTAL PROTEIN 5.3 g/dL (6.3-8.2)
[2016-11-19 05:38] LABS: BAND NEUTROPHILS % (MANUAL) 8 % (3-5); BASOPHILS % (MANUAL) 0 % (0-2); EOSINOPHILS % (MANUAL) 8 % (0-6); LYMPHOCYTES % (MANUAL) 60 % (13-45); TOTAL CELLS COUNTED 50
[2016-11-19 05:41] LABS: OVALOCYTES 1+; TOXIC GRANULATION SLIGHT; TOXIC VACUOLATION PRESENT
[2016-11-19 05:42] LABS: ANISOCYTOSIS 1+; POIKILOCYTOSIS 1+
[2016-11-19 05:45] LABS: WHITE BLOOD COUNT 1.6 10^3/uL (4.0-10.5)
[2016-11-19] MEDS: GABAPENTIN 300 MG CAPSULE PO SCH ×3 (06:01→21:03)
[2016-11-19] MEDS: CEFEPIME 2 GM/D5W RTU 2 GM/50 ML RTUPB IV SCH ×2 (06:01→18:25)
[2016-11-19] MEDS: NORMAL SALINE 1000 ML 1,000 ML IV PRN ×2 (07:41→21:07)
--- NOTE | 2016-11-19 08:35 | PDOC PROGRESS REPORT ---
Subjective Progress Note for:: 11/19/16 Subjective:: Pt doing better, had more formed BM Physical Exam Vital Signs: Temp Pulse Resp BP Pulse Ox 98.4 F 81 14 122/69 100 11/19/16 08:00 11/19/16 08:00 11/19/16 08:00 11/19/16 08:00 11/19/16 08:00 Intake & Output 11/18/16 11/19/16 11/20/16 06:59 06:59 06:59 Intake Total 2120 3670 Output Total 125 2260 Balance 1994 141 Weight 77.2 kg 77.2 kg General appearance: PRESENT: no acute distress, well-developed, well-nourished Head exam: PRESENT: atraumatic, normocephalic Eye exam: PRESENT: conjunctiva pink, EOMI, PERRLA. ABSENT: scleral icterus Ear exam: PRESENT: normal external ear exam Mouth exam: PRESENT: moist, tongue midline Neck exam: ABSENT: carotid bruit, JVD, lymphadenopathy, thyromegaly Respiratory exam: PRESENT: clear to auscultation kami. ABSENT: rales, rhonchi, wheezes Cardiovascular exam: PRESENT: RRR. ABSENT: diastolic murmur, rubs, systolic murmur Pulses: PRESENT: normal dorsalis pedis pul Vascular exam: PRESENT: normal capillary refill GI/Abdominal exam: PRESENT: normal bowel sounds, soft. ABSENT: distended, guarding, mass, organolmegaly, rebound, tenderness Rectal exam: PRESENT: deferred Extremities exam: PRESENT: full ROM. ABSENT: calf tenderness, clubbing, pedal edema Neurological exam: PRESENT: alert, awake, oriented to person, oriented to place , oriented to time, oriented to situation, CN II-XII grossly intact. ABSENT: motor sensory deficit Psychiatric exam: PRESENT: appropriate affect, normal mood. ABSENT: homicidal ideation, suicidal ideation Skin exam: PRESENT: dry, intact, warm. ABSENT: cyanosis, rash Results Laboratory Results: 11/19/16 04:21 11/19/16 04:21 11/18/16 11/18/16 11/19/16 05:11 07:12 04:21 WBC 0.7 L* D 1.6 L RBC 3.10 L 2.85 L Hgb 8.7 L D 8.0 L Hct 26.3 L 24.0 L MCV 85 84 MCH 28.1 28.0 MCHC 33.1 33.2 RDW 17.1 H 17.7 H Plt Count 145 L 115 L Seg Neutrophils % 30.9 L Not Reportable Lymphocytes % 37.4 Not Reportable Monocytes % 20.2 H Not Reportable Eosinophils % 10.2 H Not Reportable Basophils % 1.3 Not Reportable Absolute Neutrophils 0.2 L Not Reportable Absolute Lymphocytes 0.2 L Not Reportable Absolute Monocytes 0.1 Not Reportable Absolute Eosinophils 0.1 Not Reportable Absolute Basophils 0.0 Not Reportable Sodium Potassium Chloride Carbon Dioxide Anion Gap BUN Creatinine Est GFR ( Amer) Est GFR (Non-Af Amer) Glucose Calcium Magnesium Total Bilirubin AST ALT Alkaline Phosphatase Total Protein Albumin Free T4 1.45 11/19/16 04:21 WBC RBC Hgb Hct MCV MCH MCHC RDW Plt Count Seg Neutrophils % Lymphocytes % Monocytes % Eosinophils % Basophils % Absolute Neutrophils Absolute Lymphocytes Absolute Monocytes Absolute Eosinophils Absolute Basophils Sodium 142.5 Potassium 4.8 Chloride 117 H Carbon Dioxide 19 L Anion Gap 7 BUN 13 Creatinine 0.89 Est GFR ( Amer) > 60 Est GFR (Non-Af Amer) > 60 Glucose 87 Calcium 8.2 L Magnesium 2.0 Total Bilirubin 0.3 AST 124 H ALT 153 H Alkaline Phosphatase 155 H Total Protein 5.3 L Albumin 2.8 L Free T4 Impressions: Acute Abdomen Series 11/17/16 21:31 IMPRESSION: Multiple air and fluid filled bowel loops as noted above with air- fluid levels on the erect film and I cannot exclude an early or developing small bowel obstruction. Abdomen/Pelvis CT 11/18/16 00:00 IMPRESSION: Retained fluid within the large colon with mild to moderate nonspecific dilation of the large colon; differential etiologies include malabsorption, gastroenteritis, and nonspecific ileus. KUB X-Ray 11/18/16 00:00 IMPRESSION: No evidence of bowel obstruction. Lung Scan-VQ NM 11/18/16 03:46 IMPRESSION: NORMAL VENTILATION-PERFUSION LUNG SCAN. NEGATIVE FOR PULMONARY EMBOLI. Assessment & Plan - Diagnosis (1) Septic shock Is this a current diagnosis for this admission?: YesPlan: Doing better, con't cef until ANC>1000, Vanc until cx neg x 48 hrs (2) Cervical cancer Qualifiers: Malignant neoplasm of cervix location: endocervix Qualified Code(s) : C53.0 - Malignant neoplasm of endocervix Is this a current diagnosis for this admission?: YesPlan: Long discussion >35 min w/ pt about dx status, will transition chemo to our office as outpt (3) Anemia associated with chemotherapy Is this a current diagnosis for this admission?: YesPlan: Hold on transfusion for now - Time Time Spent with patient: 35 or more minutes Critical Time spent with patient: 35 or more minutes
[2016-11-19] MEDS ORDERED: VANCOMYCIN HCL 750 MG in DEXTROSE 5%-WATER 250 ML IV SCH ×2 (09:00→21:00)
[2016-11-19] MEDS ORDERED: (PENDING PHARMACY ID) (Lisinopril [Lisinopril] 40 MG) PO SCH (10:00)
[2016-11-19] MEDS: DOCUSATE SODIUM 100 MG CAPSULE PO SCH ×2 (11:03→18:26)
[2016-11-19] MEDS: ESCITALOPRAM OXALATE 10 MG TABLET PO SCH (11:03)
--- NOTE | 2016-11-19 11:03 | PROGRESS NOTE E ---
Progress Note NAME: KSENIA BROWN : 1960 AGE: 55Y DATE: 11/19/2016 ROOM: 436 SUBJECTIVE: The patient is currently lying in bed. She states she feels better than she did yesterday. She attributes this to . The patient denies any nausea, vomiting or diarrhea. She did have a bowel movement overnight without issue. She has not had any shortness of breath, dizziness, chest pain. No fevers or chills. The patient has been afebrile. Blood pressures in good range. The patient does not voice any other concerns at this time. REVIEW OF SYSTEMS: The rest of review of systems is negative. MEDICATIONS: Medications have been reviewed. OBJECTIVE: GENERAL: The patient is a 55-year-old female who is awake, alert and oriented to person, place, time and situation. She is verbal, conversational, and does not appear to be in acute distress. VITAL SIGNS: As follows: Temperature 98.7, pulse 91, respirations 14, blood pressure 122/69, oxygen saturation 100% on room air. SKIN: Warm and dry. No rash. Not diaphoretic. HEENT: Pupils are equal, round and reactive to light and accommodation. Conjunctivae are pink. There is no JVD. CARDIOVASCULAR SYSTEM: Heart is regular. There is no murmur or rub. CHEST: Clear, symmetrical and unlabored. ABDOMEN: Soft, nontender, nondistended. BACK: No CVA tenderness or sacral edema. EXTREMITIES: No clubbing, cyanosis, or edema. PSYCHIATRIC: Appropriate affect, pleasant mood. DIAGNOSTICS: Laboratory values are as follows: 1. Hematology obtained on 11/19/2016: WBC 7.46, hemoglobin 8.0, hematocrit 24.0, platelet count 115,000. 2. Chemistry obtained on 11/19/2016: Sodium 142, potassium 4.8, chloride 117, carbon dioxide 19, BUN 13, creatinine 0.89, glucose 87, calcium 8.2, magnesium 2.0, total bilirubin 2, AST 142, ALT 153, alkaline phosphatase 155, total protein 5.3, albumin 2.8. 3. Blood cultures unremarkable. IMPRESSION AND PLAN: 1. NEUTROPENIA AND SEPTIC SHOCK. Overall, the patient is much improved. Will continue cefepime, discontinue vancomycin. No evidence of bandemia. She is now afebrile. 2. CONSTIPATION VERSUS EARLY ILEUS. The patient's symptoms improved with bowel movement. Repeat KUB did not show any evidence of such. 3. CERVICAL CANCER. Management as per oncology. 4. ANEMIA ASSOCIATED WITH CHEMOTHERAPY. The patient's hemoglobin has dipped down to 8. We will continue to watch this. Do appreciate oncology input. 5. OPIATE DEPENDENCY CONTINUANCE. Will place the patient on a bowel regimen and resume home medications. 6. HYPERTENSION. The patient's creatinine was elevate. Will continue to hold JUANI inhibitor, but it is in a decent range. 7. ACUTE RENAL FAILURE, MOST LIKELY PRERENAL AZOTEMIA. Have held nephrotoxic medications and this improved with aggressive hydration as well. Will monitor chemistries. DISPOSITION: The patient is a FULL CODE. Pending patient's symptomatology and diagnostic findings, we will re-evaluate in the a.m. The patient has been downgraded to a telemetry bed. TIME SPENT: Time spent on this follow up including assessment, plan, physical examination, patient education and specialty collaboration was 25 minutes. DICTATING PHYSICIAN: CHINA STRAUSS NP [id number] PHY#: [id number] ID: [id number] JOB#: [id number] ACCT: [id number] cc: >
[2016-11-19] MEDS: LISINOPRIL 10 MG TABLET PO SCH (11:04)
[2016-11-19] MEDS: HEPARIN SOD (PORCINE) 5,000 UNIT/ML 1 ML SYRINGE SUBCUT SCH ×2 (11:05→21:03)
[2016-11-19] MEDS: FILGRASTIM INJ 300 MCG/1 ML VIAL SUBCUT SCH (11:27)
[2016-11-19] MEDS: PROCHLORPERAZINE MALEATE 10 MG TABLET PO PRN (14:07)
[2016-11-19] MEDS: QUETIAPINE FUMARATE 25 MG TABLET PO SCH (21:07)
[2016-11-19] MEDS ORDERED: NORMAL SALINE 1000 ML 1,000 ML IV PRN (21:22)
[2016-11-19] MEDS: OXYCODONE HCL IR 5 MG TABLET PO PRN (23:29)
[2016-11-20] MEDS: GABAPENTIN 300 MG CAPSULE PO SCH ×3 (05:29→21:15)
[2016-11-20] MEDS: CEFEPIME 2 GM/D5W RTU 2 GM/50 ML RTUPB IV SCH ×2 (05:33→18:25)
[2016-11-20] MEDS ORDERED: MORPHINE SULFATE 10 MG/ML INJ IV ONE (06:15)
[2016-11-20 06:32] LABS: HEMATOCRIT 25.7 % (36.0-47.0); HEMOGLOBIN 8.5 g/dL (12.0-15.5); HGB HCT DIFFERENCE -0.2; MEAN CORPUSCULAR HGB CONC 33.1 g/dL (32.0-36.0); MEAN CORPUSCULAR VOLUME 85 fl (80-97); RED BLOOD COUNT 3.03 10^6/uL (3.72-5.28); RED CELL DISTRIBUTION WIDTH 17.6 % (11.5-14.0)
[2016-11-20 06:42] LABS: ALANINE AMINOTRANSFERASE 113 U/L (9-52); ALKALINE PHOSPHATASE 156 U/L (38-126); ANION GAP 9 (5-19); ASPARTATE AMINO TRANSFERASE 55 U/L (14-36); BILIRUBIN,DIRECT 0.3 mg/dL (0.0-0.4); BILIRUBIN,TOTAL 0.3 mg/dL (0.2-1.3); BLOOD UREA NITROGEN 8 mg/dL (7-20); CALCIUM 8.9 mg/dL (8.4-10.2); CARBON DIOXIDE 20 mmol/L (22-30); CHLORIDE 115 mmol/L (98-107); CREATININE RESULT 0.75 mg/dL (0.52-1.25); GLUCOSE 83 mg/dL (75-110); POTASSIUM 4.8 mmol/L (3.6-5.0); SODIUM 143.8 mmol/L (137-145); TOTAL PROTEIN 5.7 g/dL (6.3-8.2)
[2016-11-20 06:46] LABS: WHITE BLOOD COUNT 2.8 10^3/uL (4.0-10.5)
[2016-11-20 06:51] LABS: BAND NEUTROPHILS % (MANUAL) 9 % (3-5); BASOPHILS % (MANUAL) 0 % (0-2); EOSINOPHILS % (MANUAL) 5 % (0-6); LYMPHOCYTES % (MANUAL) 23 % (13-45); TOTAL CELLS COUNTED 100
[2016-11-20 06:52] LABS: ANISOCYTOSIS 2+; TOXIC GRANULATION SLIGHT; TOXIC VACUOLATION PRESENT
[2016-11-20] MEDS: OXYCODONE HCL IR 5 MG TABLET PO PRN ×3 (07:49→23:27)
--- NOTE | 2016-11-20 08:38 | PROGRESS NOTE E ---
Progress Note NAME: KSENIA BROWN : 1960 AGE: 55Y DATE: 11/20/2016 ROOM: 436 SUBJECTIVE: The patient is currently sitting up in bed. She states that overall she is feeling better; however, she is complaining of complaining of head and neck pain which may be due to her bed positioning. The patient denies any nausea or vomiting, no diarrhea, shortness of breath, dizziness, chest pain, no fever or chills. The patient has been afebrile. Blood pressures in good range. The patient does not voice any other concerns at this time. REVIEW OF SYSTEMS: The rest of review of systems is negative. MEDICATIONS: Medications have been reviewed. OBJECTIVE: GENERAL: The patient is a 55-year-old female who is awake, alert and oriented to person, place, time and situation. She is verbal, conversational, and does not appear to be in acute distress. VITAL SIGNS: As follows: Temperature 98.1, pulse 74, respirations 16, blood pressure 150/70, oxygen saturation 100% on room air. SKIN: Warm and dry. No rash. Not diaphoretic. HEENT: Pupils are equal, round and reactive to light and accommodation. Conjunctivae are pink. There is no JVP. CARDIOVASCULAR SYSTEM: Heart is regular. There is no murmur or rub. CHEST: Clear, symmetrical and unlabored. ABDOMEN: Soft, nontender, nondistended. BACK: No CVA tenderness or sacral edema. EXTREMITIES: No clubbing, cyanosis, or edema. PSYCHIATRIC: Appropriate affect, pleasant mood. DIAGNOSTICS: Laboratory values are as follows: Hematology obtained on 11/20/2016: WBC 2.8, hemoglobin 8.5, hematocrit 25.7, platelet count 109,000. Coagulation obtained on 11/18/2016: PT 13.4, INR 0.95. Chemistry obtained on 11/20/2016: Sodium is 143, potassium 4.8, chloride 115, carbon dioxide 20, BUN 8, creatinine 0.75, glucose 83, calcium 8.9, bilirubin 0.3, AST 55, ALT 113, alkaline phosphatase 156, total protein 5.7, albumin 3.0. Urine culture obtained on 11/18/2016 reveals no growth. Blood culture obtained on 11/18/2016 reveals no growth. IMPRESSION AND PLAN: 1. NEUTROPENIA AND SEPTIC SHOCK. Overall, much improved. Continue cefepime. Vancomycin has been discontinued. She does have some bandemia but this may be due to Neulasta. The patient is now afebrile. 2. CONSTIPATION VERSUS EARLY ILEUS. The patient's symptoms overall are improved with her bowel movement. Her KUB did not show any evidence of obstructive process. 3. CERVICAL CANCER. Management as per oncology. 4. ANEMIA ASSOCIATED WITH CHEMOTHERAPY. The patient's hemoglobin looks like it is on an upward trend. Do appreciate oncology's guidance with this. 5. OPIATE DEPENDENCY CONTINUANCE. The patient has been placed on a bowel regimen and have resumed her home medications. 6. HYPERTENSION. The patient's creatinine has resolved. Will resume her JUANI inhibitor now. 7. ACUTE RENAL FAILURE, MOST LIKELY PRERENAL AZOTEMIA. The patient was aggressively hydrated and chemistries have normalized. DISPOSITION: The patient is a FULL CODE. Pending patient's symptomatology and diagnostic findings, we will re-evaluate in the a.m. The patient has been downgraded to a medical bed. TIME SPENT: Time spent on this follow up including assessment, plan, physical examination, patient education and specialty collaboration was 25 minutes. DICTATING PHYSICIAN: CHINA STRAUSS NP [id number] PHY#: [id number] ID: [id number] JOB#: [id number] ACCT: [id number] cc: >
[2016-11-20] MEDS ORDERED: KETOROLAC TROMETHAMINE INJ/PF 30 MG/1 ML SDV IV ONE (08:45)
[2016-11-20] MEDS: DOCUSATE SODIUM 100 MG CAPSULE PO SCH ×2 (09:09→18:25)
[2016-11-20] MEDS: ESCITALOPRAM OXALATE 10 MG TABLET PO SCH (09:10)
[2016-11-20] MEDS: PROCHLORPERAZINE MALEATE 10 MG TABLET PO PRN ×2 (09:10→15:44)
[2016-11-20] MEDS: LISINOPRIL 10 MG TABLET PO SCH (09:11)
[2016-11-20] MEDS: HEPARIN SOD (PORCINE) 5,000 UNIT/ML 1 ML SYRINGE SUBCUT SCH ×2 (09:12→21:08)
[2016-11-20] MEDS: FILGRASTIM INJ 300 MCG/1 ML VIAL SUBCUT SCH (12:09)
--- NOTE | 2016-11-20 12:38 | PDOC PROGRESS REPORT ---
Subjective Progress Note for:: 11/20/16 Subjective:: Patient doing better this morning Physical Exam Vital Signs: Temp Pulse Resp BP Pulse Ox 97.9 F 76 16 148/73 H 96 11/20/16 11:18 11/20/16 11:18 11/20/16 11:18 11/20/16 11:18 11/20/16 11:18 Intake & Output 11/19/16 11/20/16 11/21/16 06:59 06:59 06:59 Intake Total 3670 6944 Output Total 2260 3900 Balance 1410 3044 Weight 77.2 kg 77 kg General appearance: PRESENT: no acute distress, well-developed, well-nourished Head exam: PRESENT: atraumatic, normocephalic Eye exam: PRESENT: conjunctiva pink, EOMI, PERRLA. ABSENT: scleral icterus Ear exam: PRESENT: normal external ear exam Mouth exam: PRESENT: moist, tongue midline Neck exam: ABSENT: carotid bruit, JVD, lymphadenopathy, thyromegaly Respiratory exam: PRESENT: clear to auscultation kami. ABSENT: rales, rhonchi, wheezes Cardiovascular exam: PRESENT: RRR. ABSENT: diastolic murmur, rubs, systolic murmur Pulses: PRESENT: normal dorsalis pedis pul Vascular exam: PRESENT: normal capillary refill GI/Abdominal exam: PRESENT: normal bowel sounds, soft. ABSENT: distended, guarding, mass, organolmegaly, rebound, tenderness Rectal exam: PRESENT: deferred Extremities exam: PRESENT: full ROM. ABSENT: calf tenderness, clubbing, pedal edema Neurological exam: PRESENT: alert, awake, oriented to person, oriented to place , oriented to time, oriented to situation, CN II-XII grossly intact. ABSENT: motor sensory deficit Psychiatric exam: PRESENT: appropriate affect, normal mood. ABSENT: homicidal ideation, suicidal ideation Skin exam: PRESENT: dry, intact, warm. ABSENT: cyanosis, rash Results Laboratory Results: 11/20/16 05:46 11/20/16 05:46 11/20/16 11/20/16 05:46 05:46 WBC 2.8 L D RBC 3.03 L Hgb 8.5 L Hct 25.7 L MCV 85 MCH 28.0 MCHC 33.1 RDW 17.6 H Plt Count 109 L Seg Neutrophils % Not Reportable Lymphocytes % Not Reportable Monocytes % Not Reportable Eosinophils % Not Reportable Basophils % Not Reportable Absolute Neutrophils Not Reportable Absolute Lymphocytes Not Reportable Absolute Monocytes Not Reportable Absolute Eosinophils Not Reportable Absolute Basophils Not Reportable Sodium 143.8 Potassium 4.8 Chloride 115 H Carbon Dioxide 20 L Anion Gap 9 BUN 8 Creatinine 0.75 Est GFR ( Amer) > 60 Est GFR (Non-Af Amer) > 60 Glucose 83 Calcium 8.9 Total Bilirubin 0.3 AST 55 H ALT 113 H Alkaline Phosphatase 156 H Total Protein 5.7 L Albumin 3.0 L Impressions: Acute Abdomen Series 11/17/16 21:31 IMPRESSION: Multiple air and fluid filled bowel loops as noted above with air- fluid levels on the erect film and I cannot exclude an early or developing small bowel obstruction. Abdomen/Pelvis CT 11/18/16 00:00 IMPRESSION: Retained fluid within the large colon with mild to moderate nonspecific dilation of the large colon; differential etiologies include malabsorption, gastroenteritis, and nonspecific ileus. KUB X-Ray 11/18/16 00:00 IMPRESSION: No evidence of bowel obstruction. Lung Scan-VQ NM 11/18/16 03:46 IMPRESSION: NORMAL VENTILATION-PERFUSION LUNG SCAN. NEGATIVE FOR PULMONARY EMBOLI. Assessment & Plan - Diagnosis (1) Septic shock Is this a current diagnosis for this admission?: YesPlan: Resolved now, cultures have been negative, vancomycin has been discontinued, we can continue cefepime for another 24 hours and then discontinue tomorrow, continue Neupogen today but as long as ANC stays greater than 1000 discontinue tomorrow. Once cefepime is discontinued we can transition probably to Levaquin for another 5 day to be given at home. (2) Cervical cancer Qualifiers: Malignant neoplasm of cervix location: endocervix Qualified Code(s) : C53.0 - Malignant neoplasm of endocervix Is this a current diagnosis for this admission?: YesPlan: As noted previously will be transitioning care to our office, she has follow-up next week with us. (3) Anemia associated with chemotherapy Is this a current diagnosis for this admission?: YesPlan: Hemoglobin has been stable and improved today, she will likely not need transfusions while in-house - Time Time Spent with patient: 35 or more minutes Critical Time spent with patient: 35 or more minutes - Inpatient Certification Based on my medical assessment, after consideration of the patient's comorbidities, presenting symptoms, or acuity I expect that the services needed warrant INPATIENT care.: Yes I certify that my determination is in accordance with my understanding of Medicare's requirements for reasonable and necessary INPATIENT services [42 CFR 412.3e].: Yes Medical Necessity: Need for IV Antibiotics
[2016-11-20] MEDS: QUETIAPINE FUMARATE 25 MG TABLET PO SCH (21:14)
[2016-11-21] MEDS: CEFEPIME 2 GM/D5W RTU 2 GM/50 ML RTUPB IV SCH (05:27)
[2016-11-21] MEDS: GABAPENTIN 300 MG CAPSULE PO SCH ×3 (05:28→21:16)
[2016-11-21] MEDS: OXYCODONE HCL IR 5 MG TABLET PO PRN ×2 (07:42→15:53)
[2016-11-21] MEDS ORDERED: KETOROLAC TROMETHAMINE INJ/PF 30 MG/1 ML SDV ONE (07:53)
[2016-11-21] MEDS ORDERED: KETOROLAC TROMETHAMINE INJ/PF 30 MG/1 ML SDV IV PRN (07:58)
[2016-11-21] MEDS ORDERED: HYDROMORPHONE HCL INJ/PF 2 MG/ML AMPULE IV ONE (09:30)
[2016-11-21] MEDS: HEPARIN SOD (PORCINE) 5,000 UNIT/ML 1 ML SYRINGE SUBCUT SCH ×2 (09:39→21:16)
[2016-11-21] MEDS: ESCITALOPRAM OXALATE 10 MG TABLET PO SCH (09:40)
[2016-11-21] MEDS: DOCUSATE SODIUM 100 MG CAPSULE PO SCH ×2 (09:40→17:18)
[2016-11-21] MEDS: LISINOPRIL 10 MG TABLET PO SCH (09:41)
[2016-11-21 09:47] LABS: ABSOLUTE EOSINOPHILS # (AUTO) 0.2 10^3/uL (0.0-0.6); ABSOLUTE LYMPHOCYTES (AUTO) 0.7 10^3/uL (0.5-4.7); ABSOLUTE MONOCYTES (AUTO) 0.7 10^3/uL (0.1-1.4); ABSOLUTE NEUT (AUTO) 6.1 10^3/uL (1.7-8.2); BASOPHILS % (AUTO) 0.4 % (0-2); EOSINOPHILS % (AUTO) 2.7 % (0-6); HEMATOCRIT 24.5 % (36.0-47.0); HEMOGLOBIN 8.3 g/dL (12.0-15.5); HGB HCT DIFFERENCE 0.4; MEAN CORPUSCULAR HEMOGLOBIN 28.1 pg (27.0-33.4); MEAN CORPUSCULAR HGB CONC 33.9 g/dL (32.0-36.0); MEAN CORPUSCULAR VOLUME 83 fl (80-97); MONOCYTES % (AUTO) 8.5 % (3-13); RED BLOOD COUNT 2.95 10^6/uL (3.72-5.28); SEGMENTED NEUTROPHILS % (AUTO) 79.4 % (42-78)
--- NOTE | 2016-11-21 09:49 | PROGRESS NOTE E ---
Progress Note NAME: KSENIA BROWN : 1960 AGE: 55Y DATE: 11/21/2016 ROOM: 401 SUBJECTIVE: The patient is lying in bed. She states that she has an ongoing headache. She denies any nausea, vomiting, diarrhea, shortness of breath, dizziness, chest pain. No fevers or chills. The patient states she did not sleep well overnight and attributes this to headache. The patient has asked for something stronger for pain. The patient does not voice any other concerns at this time. REVIEW OF SYSTEMS: The rest of review of systems is negative. MEDICATIONS: Medications have been reviewed. OBJECTIVE: GENERAL: The patient is a 55-year-old female who is awake, alert and oriented to person, place, time and situation. She is verbal, conversational, and does not appear to be in any acute distress. VITAL SIGNS: As follows: Temperature 98.4, pulse 76, respirations 18, blood pressure 140/77, oxygen saturation 100% on room air. SKIN: Warm and dry. No rash. Not diaphoretic. HEENT: Pupils are equal, round and reactive to light and accommodation. Conjunctivae are pink. There is no JVD. CARDIOVASCULAR SYSTEM: Heart is regular. There is no murmur or rub. CHEST: Clear, symmetrical and unlabored. ABDOMEN: Soft, nontender, nondistended. BACK: No CVA tenderness or sacral edema. EXTREMITIES: No clubbing, cyanosis, or edema. PSYCHIATRIC: Patient is tearful. DIAGNOSTICS: Laboratory values are as follows: Hematology obtained on 11/20/2016: WBC , hemoglobin 7.5, hematocrit 25.7, platelet count 109,000. Chemistry obtained on 11/20/2016: Sodium 142, potassium 4.8, chloride 115, carbon dioxide 20, BUN 8, creatinine 0.75, glucose 83, calcium 8.9. Direct bilirubin is 0.3, AST 55, ALT 113, alkaline phosphatase 156, total protein 5.7, albumin 3.0. Microbiology: Blood cultures obtained on 11/18/2016 reveals no growth. IMPRESSION AND PLAN: 1. NEUTROPENIA AND SEPTIC SHOCK. Overall, much improved. Will transition to Levaquin. Her vancomycin has already been discontinued. CBC this morning is still pending. Currently have Neupogen on hold. Mostly likely this will be discontinued. 2. CONSTIPATION VERSUS EARLY ILEUS. KUB was negative. Overall, this has improved. 3. CERVICAL CANCER. Management as per Oncology. 4. ANEMIA ASSOCIATED WITH CHEMOTHERAPY. Hemoglobin looks like it has been on an upward trend. Do appreciate Oncology's guidance with this. 5. OPIATE DEPENDENCY CONTINUANCE. Place the patient on a bowel regimen and resume to home medications. 6. HYPERTENSION. Blood pressors have been in a decent range. Continue current medications. 7. ACUTE RENAL FAILURE, MOST LIKELY PRERENAL AZOTEMIA. The patient has been aggressively hydrated and chemistries have normalized. 8. HEADACHE. I will give the patient a one time dose of Dilaudid and will follow. DISPOSITION: The patient is a FULL CODE. Pending patient's symptomatology and diagnostic findings, we will re-evaluate in the a.m. for discharge. The patient has been downgraded to a medical bed. TIME SPENT: Time spent on this follow up including assessment, plan, physical examination, patient education and specialty collaboration was 25 minutes. DICTATING PHYSICIAN: CHINA STRAUSS NP [id number] PHY#: [id number] ID: [id number] JOB#: [id number] ACCT: [id number] cc: > MTDD
[2016-11-21 09:56] LABS: WHITE BLOOD COUNT 7.7 10^3/uL (4.0-10.5)
[2016-11-21] MEDS ORDERED: LEVOFLOXACIN 750 MG TABLET PO SCH (10:00)
[2016-11-21] MEDS: PROCHLORPERAZINE MALEATE 10 MG TABLET PO PRN (15:53)
[2016-11-21] MEDS ORDERED: HYDROMORPHONE HCL 2 MG TABLET PO ONE (22:30)
--- NOTE | 2016-11-21 23:59 | RADIOLOGY REPORT (SQ) ---
EXAM DESCRIPTION: CT HEAD WITHOUT COMPLETED DATE/TIME: 11/21/2016 11:34 pm REASON FOR STUDY: headache, cervical Ca COMPARISON: 07/21/2015 TECHNIQUE: Axial images acquired through the brain without intravenous contrast. Images reviewed wi th bone, brain and subdural windows. Images stored on PACS. All CT scanners at this facility use dose modulation, iterative reconstruction, and/or weight based d osing when appropriate to reduce radiation dose to as low as reasonably achievable (ALARA). [facility]: Dose Right [facility]: CareDose [facility]: Dose Right [facility]: Teradose 4D [facility]: [facility] RADIATION DOSE: Up-to-date CT equipment and radiation dose reduction techniques were employed. CTDIv ol: 64.6 mGy. DLP: 1163 mGy-cm. mGy. LIMITATIONS: None. FINDINGS: VENTRICLES: Normal size and contour. CEREBRUM: No masses. No hemorrhage. No midline shift. Normal ashby/white matter differentiation. N o evidence for acute infarction. CEREBELLUM: No masses. No hemorrhage. No alteration of density. No evidence for acute infarction. EXTRAAXIAL SPACES: No fluid collections. No masses. ORBITS AND GLOBE: No intra- or extraconal masses. Normal contour of globe without masses. CALVARIUM: No fracture. PARANASAL SINUSES: No fluid or mucosal thickening. SOFT TISSUES: No mass or hematoma. OTHER: No other significant finding. IMPRESSION: No acute intracranial findings. TECHNICAL DOCUMENTATION: JOB ID: [id number] Quality ID # [id number]: Final reports with documentation of one or more dose reduction techniques (e.g., Au tomated exposure control, adjustment of the mA and/or kV according to patient size, use of iterative reconstruction technique) 2010 [employer]- All Rights Reserved
[2016-11-22] MEDS: GABAPENTIN 300 MG CAPSULE PO SCH (06:14)
[2016-11-22] MEDS: OXYCODONE HCL IR 5 MG TABLET PO PRN (06:59)
--- NOTE | 2016-11-22 08:08 | PDOC PROGRESS REPORT ---
Subjective Progress Note for:: 11/22/16 Subjective:: Patient doing well this morning, CT of the head noncontrasted was negative Physical Exam Vital Signs: Temp Pulse Resp BP Pulse Ox 98.2 F 68 17 140/72 H 100 11/22/16 04:00 11/22/16 04:00 11/22/16 04:00 11/22/16 04:00 11/22/16 04:00 Intake & Output 11/21/16 11/22/16 11/23/16 06:59 06:59 06:59 Intake Total 784 640 Output Total 800 1200 Balance -16 -560 Weight 79.8 kg 79.4 kg General appearance: PRESENT: no acute distress, well-developed, well-nourished Head exam: PRESENT: atraumatic, normocephalic Eye exam: PRESENT: conjunctiva pink, EOMI, PERRLA. ABSENT: scleral icterus Ear exam: PRESENT: normal external ear exam Mouth exam: PRESENT: moist, tongue midline Neck exam: ABSENT: carotid bruit, JVD, lymphadenopathy, thyromegaly Respiratory exam: PRESENT: clear to auscultation kami. ABSENT: rales, rhonchi, wheezes Cardiovascular exam: PRESENT: RRR. ABSENT: diastolic murmur, rubs, systolic murmur Pulses: PRESENT: normal dorsalis pedis pul Vascular exam: PRESENT: normal capillary refill GI/Abdominal exam: PRESENT: normal bowel sounds, soft. ABSENT: distended, guarding, mass, organolmegaly, rebound, tenderness Rectal exam: PRESENT: deferred Extremities exam: PRESENT: full ROM. ABSENT: calf tenderness, clubbing, pedal edema Neurological exam: PRESENT: alert, awake, oriented to person, oriented to place , oriented to time, oriented to situation, CN II-XII grossly intact. ABSENT: motor sensory deficit Psychiatric exam: PRESENT: appropriate affect, normal mood. ABSENT: homicidal ideation, suicidal ideation Skin exam: PRESENT: dry, intact, warm. ABSENT: cyanosis, rash Results Laboratory Results: 11/21/16 09:11 11/20/16 05:46 11/21/16 09:11 WBC 7.7 D RBC 2.95 L Hgb 8.3 L Hct 24.5 L MCV 83 MCH 28.1 MCHC 33.9 RDW 17.0 H Plt Count 97 L Seg Neutrophils % 79.4 H Lymphocytes % 9.0 L Monocytes % 8.5 Eosinophils % 2.7 Basophils % 0.4 Absolute Neutrophils 6.1 Absolute Lymphocytes 0.7 Absolute Monocytes 0.7 Absolute Eosinophils 0.2 Absolute Basophils 0.0 Impressions: Acute Abdomen Series 11/17/16 21:31 IMPRESSION: Multiple air and fluid filled bowel loops as noted above with air- fluid levels on the erect film and I cannot exclude an early or developing small bowel obstruction. Abdomen/Pelvis CT 11/18/16 00:00 IMPRESSION: Retained fluid within the large colon with mild to moderate nonspecific dilation of the large colon; differential etiologies include malabsorption, gastroenteritis, and nonspecific ileus. KUB X-Ray 11/18/16 00:00 IMPRESSION: No evidence of bowel obstruction. Lung Scan-VQ NM 11/18/16 03:46 IMPRESSION: NORMAL VENTILATION-PERFUSION LUNG SCAN. NEGATIVE FOR PULMONARY EMBOLI. Head CT 11/21/16 00:00 IMPRESSION: No acute intracranial findings. Assessment & Plan - Diagnosis (1) Septic shock Is this a current diagnosis for this admission?: Yes (2) Cervical cancer Qualifiers: Malignant neoplasm of cervix location: endocervix Qualified Code(s) : C53.0 - Malignant neoplasm of endocervix Is this a current diagnosis for this admission?: YesPlan: DC today, she will require Levaquin as outpatient, follow-up with us as scheduled already (3) Anemia associated with chemotherapy Is this a current diagnosis for this admission?: YesPlan: No need for transfusion prior to discharge
[2016-11-22] MEDS: LISINOPRIL 10 MG TABLET PO SCH (09:16)
[2016-11-22] MEDS: DOCUSATE SODIUM 100 MG CAPSULE PO SCH (09:16)
[2016-11-22] MEDS: ESCITALOPRAM OXALATE 10 MG TABLET PO SCH (09:18)
[2016-11-22 09:55] VITALS: BP 140/72
--- NOTE | 2016-11-22 13:18 | DISCHARGE SUMMARY E ---
Discharge Summary NAME: KSENIA BROWN : 1960 AGE: 55Y ADMITTED: 11/18/2016 DISCHARGED: 11/22/2016 CODE STATUS: FULL CODE. ONCOLOGIST: Dr. Alexandra PRIMARY CARE PROVIDER: The patient will be referred to [facility]. DISCHARGE DIAGNOSIS INCLUDES: 1. Neutropenic septic shock, present on admission. 2. Constipation. 3. Cervical cancer. 4. Anemia associated with chemotherapy. 5. Opiate dependency, continuous. 6. Hypertension. 7. Acute renal failure, most likely prerenal azotemia. 8. Headache. DISCHARGE MEDICATIONS INCLUDE: 1. Levaquin 750 mg p.o. daily, 5 tablets with 0 refills. 2. Ambien 5 mg p.o. at hour of sleep p.r.n. 3. Compazine 10 mg p.o. every 6 hours p.r.n. 4. Percocet 5 mg/325 mg 1 tablet p.o. every 12 hours p.r.n. 5. Zofran ODT 8 mg p.o. every 8 hours. 6. Lisinopril 40 mg p.o. daily. 7. Gabapentin 600 mg p.o. every 8 hours. 8. Lexapro 10 mg p.o. daily. 9. Bentyl 10 mg p.o. every 12 hours p.r.n. DIET: As tolerated. ACTIVITY: As tolerated. DIAGNOSTICS: Lab values are as follows. Hematology obtained on 11/21/2016: WBCs are 7.7, hemoglobin is 8.3, hematocrit is 24.5, platelet count is 97,000. Coagulated obtained on 11/18/2016: PT is 13.4, INR is 0.95, D-dimer is 3.28. Chemistry obtained on 11/20/2016: Sodium is 143, potassium 4.8, chloride 115, carbon dioxide 20, BUN 8, creatinine 0.75, glucose 83, calcium 8.9, magnesium is 2, bilirubin 0.3, AST 55, ALT is 113, alk phos 156, total protein 5.7, albumin 3. TSH is 8.84, free T4 is 1.45. Lipase is 123. CK MB is 1.50, troponin 0.012, BNP is 103. Urinalysis obtained on 11/18/2016: Color yellow, appearance cloudy, pH 5.3, specific gravity is 1.028, protein negative, glucose negative, ketones negative, occult blood mild, nitrite negative, bilirubin negative, urobilinogen negative, leukocyte esterase is large, WBCs 46, RBCs 23, casts 1, bacteria trace. Microbiology: Blood cultures obtained on 11/18/2016 revealed no growth. Urine culture obtained on 11/18/2016 revealed no growth. Acute abdominal series obtained on 11/17/2016 reveals multiple air- and fluid-filled bowel loops as noted. CT of the abdomen and pelvis obtained on 11/18/2016 reveals retained fluid within the large colon with [id number] nonspecific dilation of the large colon. Differential etiology included malabsorption, gastroenteritis and nonspecific ileus. KUB obtained on 11/18/2016 reveals no evidence of bowel obstruction. Lung V/Q scan obtained on 11/18/2016 reveals a normal V/Q scan negative for pulmonary emboli. Head CT obtained on 11/21/2016 reveals no acute intracranial findings. EKG obtained on 11/17/2016 reveals sinus rhythm. PHYSICAL EXAMINATION: GENERAL: On examination, the patient is a well-developed, well-nourished 55-year-old female who is awake, alert, and oriented to person, place, time, and situation. She is verbal, conversational, does not appear to be in any acute distress. VITAL SIGNS: As follows: Temperature is 98.9, pulse 58, respirations 17, blood pressure is 140/72, oxygen saturation is 100% on room air. SKIN: Warm and dry. No rash, not diaphoretic. HEENT: Pupils are equal, round, and reactive to light and accommodation. Conjunctivae pink. No JVP. CARDIOVASCULAR: Heart is regular with no murmur or rub. CHEST: Clear, symmetrical, unlabored. ABDOMEN: Soft, nontender, nondistended. BACK: No CVA tenderness or sacral edema. EXTREMITIES: No clubbing, cyanosis, edema. PSYCHIATRIC: Appropriate affect, pleasant mood. HISTORY OF PRESENT ILLNESS: The patient is a 55-year-old female with a past medical history of cervical cancer. The patient presented to the Emergency Department with a chief complaint of shortness of breath and upper abdominal pain. The patient had received her first chemotherapy treatment on November 08 for cervical cancer. The patient presented to the Emergency Room for sudden onset approximately 2 hours prior to presentation of a combination of prominent shortness of breath as well as upper abdominal pain. The pain was described as a combination of a burning, sharp, painful band across her abdomen which was made worse with movement and deep breathing. The patient's systolic blood pressures were found to be low at 84. The patient received 2 L of bolus fluid which she responded nicely to. The patient denied any nausea, vomiting, fever or chills. Did admit to constipation. The patient is status post a total hysterectomy on October 13. The patient was found to be significantly neutropenic with evidence of sepsis and was referred to the hospitalist for admission and management. HOSPITAL COURSE: The patient was admitted to ICU. The patient was aggressively hydrated and the patient responded nicely. The patient's creatinine which was found to be 2.28 normalized to 0.75 with hydration. The patient was seen by Dr. Alexandra with Oncology as well. The patient's vancomycin was discontinued after 24 hours and the patient was placed on cefepime. The patient responded nicely to this. As well, the patient was started on Neulasta and her white count improved. The patient's hemoglobin remained relatively stable and, therefore, blood transfusion was able to be deferred. The patient's only complaint was headache. The patient had head imaging which was unremarkable and she was getting pain medication for this. The patient is quite eager for discharge. DISCHARGE PLAN: 1. The patient is advised to follow up with Dr. Alexandra within 1-2 weeks for hospital followup. 2. The patient is to follow up with [facility] within 1-2 weeks for hospital followup. Time spent on this discharge, including assessment/plan, physical examination, patient education, and speciality collaboration, is 25 minutes. DICTATING PHYSICIAN: CHINA STRAUSS NP [id number] PHY#: [id number] ID: [id number] JOB#: [id number] ACCT: [id number] cc:LETI VÁSQUEZ M.D. CHINA STRAUSS NP >
== END 2016-11-22 11:08 | disposition home or self-care (01) | DRG 871 ==
LOC: ER 20:51 → UNDOADMIN 11-18 02:14 → EH 11-18 02:14 → ICU 11-18 04:57 → EH 11-18 04:57 → 4S 11-18 15:41 → 4N 11-20 16:25
PROVIDERS: ADMIT Family Medicine; ATTEND Family Medicine
DX: A41.9 Sepsis, unspecified organism (principal); R65.21 Severe sepsis with septic shock; N17.9 Acute kidney failure, unspecified; F11.20 Opioid dependence, uncomplicated; D70.9 Neutropenia, unspecified; C53.9 Malignant neoplasm of cervix uteri, unspecified; R51 Headache; D64.81 Anemia due to antineoplastic chemotherapy; K59.00 Constipation, unspecified; I10 Essential (primary) hypertension; M19.90 Unspecified osteoarthritis, unspecified site; Z79.899 Other long term (current) drug therapy; Z90.710 Acquired absence of both cervix and uterus; Z90.49 Acquired absence of other specified parts of digestive tract
CPT/HCPCS: 36415; 70450; 74000; 74022; 74176; 78582; 80048; 80053; 81001; 82550; 82553; 83690; 83735; 83880; 84439; 84443; 84484; 85025; 85379; 85610; 85730; 87040; 87086; 93005; 93010; 96361; 96374; 96375; 96376; 99285; A9540; A9567; J0692; J0696; J1170; J1442; J1644; J1885; J2270; J2405; J2543; J3370; J3490; J7030; J7060; Q9969; S0183

== ENCOUNTER 2016-12-01 05:18 | Day surgery (SDC) | payer MEDICARE ==
[~2016-12-01 05:18] MED LIST: ACETAMINOPHEN 325 MG TABLET PO PRN; CEFAZOLIN 1 GM/D5W RTU 1 GM/50 ML RTUPB IV PRN; CEFAZOLIN 2 GM/D5W RTU 2 GM/50 ML RTUPB IV PRN
[2016-12-01] MEDS ORDERED: LIDOCAINE 0.5%/EPINEPHRINE INJ 50 ML VIAL ONE (06:38)
[2016-12-01] MEDS ORDERED: MIDAZOLAM 2 MG/2 ML INJ ONE (06:44)
[2016-12-01] MEDS ORDERED: FENTANYL CITRATE INJ/PF 100 MCG/2 ML AMPUL ONE (06:44)
[2016-12-01] MEDS ORDERED: PROPOFOL INJ 200 MG/20 ML VIAL IV ONE (06:45)
[2016-12-01] MEDS ORDERED: DIPHENHYDRAMINE HCL 50 MG/ML VIAL IV PRN (07:50)
[2016-12-01] MEDS ORDERED: OXYCODONE-ACETAMINOPHEN 5-325 MG TABLET PO PRN ×3 (07:50→08:16)
[2016-12-01] MEDS ORDERED: MORPHINE SULFATE 10 MG/ML INJ IV PRN (07:50)
[2016-12-01] MEDS ORDERED: PROMETHAZINE HCL INJ 25 MG/1 ML VIAL IV PRN ×2 (07:50)
[2016-12-01] MEDS ORDERED: FENTANYL CITRATE INJ/PF 100 MCG/2 ML AMPUL IV PRN ×3 (07:50)
[2016-12-01] MEDS ORDERED: MEPERIDINE HCL/PF INJ 25 MG/1 ML DISP.SYRIN IV PRN (07:50)
--- NOTE | 2016-12-01 08:13 | Operative Report ---
Operative Report DATE OF SURGERY: 12/01/16 PREOPERATIVE DIAGNOSIS: Cervical carcinoma POSTOPERATIVE DIAGNOSIS: Same OPERATION: 1. Focused ultrasound right neck. 2 ultrasound directed insertion of right internal jugular vein catheter. 3. placement of right subclavian [id number] chamber. 4. Interpretation of intraoperative fluoroscopy SURGEON: ARTUR BE 1ST CLAY TRANSPORTER: HERLINDA DUGGAN ANESTHESIA: LMAC TISSUE REMOVED OR ALTERED: None COMPLICATIONS: None ESTIMATED BLOOD LOSS: Minimal INTRAOPERATIVE FINDINGS: See below PROCEDURE: The patient was taken to the preop holding area the main operating room where LMAC anesthesia was induced. Arms were tucked at patient's side neck extended and right neck and chest wall prepped and draped in sterile fashion. Surgical plan and surgical timeout were conducted The right neck was scanned with a variable frequency linear transducer. Findings are significant for patent right internal jugular vein. Skin was anesthetized with 1% lidocaine plain. Using the Seldinger technique a needle and wire was threaded into the right internal jugular vein without difficulty. Suitable site for placement of the port was chosen in the right subclavian area. The skin was anesthetized with 1% plain lidocaine. A small 3 cm incision was made in a horizontal fashion, subcutaneous pocket developed large enough to accommodate a single-chamber port. The catheter was then trimmed to appropriate length tunneled between the 2 incisions and attached to the port. Under fluoroscopic guidance, dilator and introducer sheath was threaded over the wire, the wire and dilator removed and the catheter threaded into the strip away sheath. Strip away sheath was removed leaving the catheter in good position. The tip of the catheter was now in the superior vena cava right atrial region. There is no kinking of the catheter. We aspirated and flushed the catheter with heparinized saline. Was closed with the 2-0 Vicryl suture benzoin and Steri-Strips. At the conclusion of the procedure there was a small hematoma at the catheter insertion site on the neck. It was not expanding. We felt the operation was complete; sponge and needle counts correct. Patient was taken recovery in stable condition. Blood pressure chest x-ray pending time dictation.
--- NOTE | 2016-12-01 08:21 | PDOC DISCHARGE SUMMARY ---
Discharge Summary (SDC) - Discharge Final Diagnosis: right subclavian port a cath Date of Surgery: 12/01/16 Discharge Date: 12/01/16 Condition: Stable Treatment or Instructions: Leave paper dressing (ster strips) intact until follow up appointment. May shower in 48 hours. Wash area with warm water and soap, pat area dry. May take Toradol 10 mg q 6 hours as needed for pain. Follow up at [facility] with Mai Martinez PA-C in 7-10 days. [facility]: [phone] Prescriptions: Ketorolac Tromethamine [Toradol 10 mg Tablet] 10 mg PO Q6HP PRN #20 tablet PRN Reason: Report the Following to Your Physician Immediately: Shortness of Breath, Increase in Pain, Fever over 101 Degrees, Unusual Bleeding, Redness, Swelling, Drainage-Foul Smelling
[2016-12-01] MEDS: FENTANYL CITRATE INJ/PF 100 MCG/2 ML AMPUL ONE ×3 (08:48→09:08)
--- NOTE | 2016-12-01 09:33 | RADIOLOGY REPORT (SQ) ---
EXAM DESCRIPTION: CHEST SINGLE VIEW COMPLETED DATE/TIME: 12/01/2016 8:39 am REASON FOR STUDY: s/p port placement COMPARISON: Chest films 11/17/2016, 07/13/2015, 04/23/2015 EXAM PARAMETERS: NUMBER OF VIEWS: One view. TECHNIQUE: Single frontal radiographic view of the chest acquired. RADIATION DOSE: NA LIMITATIONS: None. FINDINGS: Right permanent central line tip in the superior vena cava. No pneumothorax. LUNGS AND PLEURA: No opacities, masses or pneumothorax. No pleural effusion. MEDIASTINUM AND HILAR STRUCTURES: No masses. Contour normal. HEART AND VASCULAR STRUCTURES: Heart normal in size. Normal vasculature. BONES: No acute findings. HARDWARE: None in the chest. OTHER: No other significant finding. IMPRESSION: Right permanent central line tip superior vena cava. No pneumothorax. TECHNICAL DOCUMENTATION: JOB ID: [id number]
--- NOTE | 2016-12-01 10:59 | RADIOLOGY REPORT (SQ) ---
EXAM DESCRIPTION: FLUORO/CV PLACEMENT COMPLETED DATE/TIME: 12/01/2016 10:07 am REASON FOR STUDY: PORTACATH IN OR GUIDED BY FLUORO C53.9 MALIGNANT NEOPLASM OF CERVIX UTERI, UNSPEC IFIED COMPARISON: Two-view chest 07/21/2015 TECHNIQUE: Intra-operative images acquired during surgical procedure to evaluate progress. NUMBER OF IMAGES: 3 digital operative C-arm images Intra procedural imaging and fluoro during central venous catheter placement in the OR by Dr. Valeria power LIMITATIONS: None. FINDINGS: Intra procedural imaging and fluoro during permanent central line placement IMPRESSION: Intra procedural imaging and fluoro COMMENT: Quality ID [id number]: Final reports for procedures using fluoroscopy that document radiation exp osure indices, or exposure time and number of fluorographic images (if radiation exposure indices are not available) Please consult full operative report of the attending physician for description of the procedure. TECHNICAL DOCUMENTATION: JOB ID: [id number] [employer]- All Rights Reserved FLUOROSCOPY TIME: Less than 5 seconds 3 C-arm images saved to PACS.
[2016-12-01 11:31] VITALS: BP 124/56
== END 2016-12-01 10:40 | disposition home or self-care (01) ==
LOC: OROUT 05:18
PROVIDERS: ATTEND Surgery
PROC: 05H533Z Insertion of Infusion Device into Right Subclavian Vein, Percutaneous Approach (ICD-10-PCS; principal; 2016-12-01 07:30)
DX: C53.9 Malignant neoplasm of cervix uteri, unspecified (principal); I10 Essential (primary) hypertension; Z79.899 Other long term (current) drug therapy; Z98.84 Bariatric surgery status
CPT/HCPCS: 36561; 71010; 77001; C1752; C1788; J2250; J0690; J3010; J3490; A9270; J2704; J1642; 532

== ENCOUNTER 2016-12-10 08:45 | Emergency (ER) | payer MEDICARE ==
--- NOTE | 2016-12-10 10:08 | ER Document Report ---
ED General - General Chief Complaint: Shortness Of Breath Stated Complaint: REACTION TO CHEMO Time Seen by Provider: 12/10/16 09:05 Mode of Arrival: Ambulatory Information source: Patient Notes: 55-year-old female history of uterine cancer who just started chemotherapy presents with complaints of shortness of breath dehydration-like symptoms. Patient notes she feels weak dehydrated sharp breath. Patient denies any vomiting but admits to nausea TRAVEL OUTSIDE OF THE [place] IN LAST 30 DAYS: No - HPI Onset: Other - 3 days Onset/Duration: Persistent Quality of pain: Achy Severity: Mild Pain Level: 1 Associated symptoms: Nausea, Shortness of breath Exacerbated by: Other - after chemo Relieved by: Denies Similar symptoms previously: Yes Recently seen / treated by doctor: Yes - Related Data Allergies/Adverse Reactions: No Known Allergies Allergy (Verified 12/10/16 08:55) Past Medical History - Social History Smoking Status: Never Smoker Cigarette use (# per day): No Chew tobacco use (# tins/day): No Smoking Education Provided: No Frequency of alcohol use: None Drug Abuse: None Family History: Reviewed & Not Pertinent - Past Medical History Cardiac Medical History: Reports: Hx Hypertension Denies: Hx Atrial Fibrillation, Hx Congestive Heart Failure, Hx Coronary Artery Disease, Hx DVT, Hx Heart Attack, Hx Hypercholesterolemia, Hx Pulmonary Embolism Pulmonary Medical History: Denies: Hx Asthma, Hx Bronchitis, Hx COPD, Hx Pneumonia, Hx Sleep Apnea Neurological Medical History: Denies: Hx Cerebrovascular Accident, Hx Seizures Endocrine Medical History: Denies: Hx Diabetes Mellitus Type 1, Hx Diabetes Mellitus Type 2, Hx Hyperthyroidism, Hx Hypothyroidism Renal/ Medical History: Denies: Hx Peritoneal Dialysis Malignancy Medical History: Reports: Hx Cervical Cancer GI Medical History: Denies: Hx Cirrhosis, Hx Gastroesophageal Reflux Disease, Hx Hepatitis Musculoskeltal Medical History: Reports Hx Arthritis Psychiatric Medical History: Reports: Hx Depression - History of Infectious Medical History: Denies: Hx Hepatitis Past Surgical History: Reports: Hx Abdominal Surgery - gastric bypass, hernia repair x 2 bowel obstruction, Hx Cholecystectomy, Hx Gastric Bypass Surgery, Hx Herniorrhaphy - 2, Hx Hysterectomy, Hx Neurologic Surgery - CARPAL TUNNEL, Other - Exploratory laparotomy for small bowel obstruction since gastric bypass - Immunizations Hx Diphtheria, Pertussis, Tetanus Vaccination: No Review of Systems - Review of Systems Notes: REVIEW OF SYSTEMS: CONSTITUTIONAL : Denies fever, chills, or sweats. Denies recent illness. EENT: Denies eye, ear, throat, or mouth pain or symptoms. Denies nasal or sinus congestion or discharge. Denies throat, tongue, or mouth swelling or difficulty swallowing. CARDIOVASCULAR: Denies chest pain. Denies palpitations or racing or irregular heart beat. Denies ankle edema. RESPIRATORY: admits to shortness of breath GASTROINTESTINAL: admits to nausea GENITOURINARY: Denies difficulty urinating, painful urination, burning, frequency, blood in urine, or discharge. FEMALE GENITOURINARY: Denies vaginal bleeding, heavy or abnormal periods, irregular periods. Denies vaginal discharge or odor. MUSCULOSKELETAL: Denies back or neck pain or stiffness. Denies joint pain or swelling. SKIN: Denies rash, lesions or sores. HEMATOLOGIC : Denies easy bruising or bleeding. LYMPHATIC: Denies swollen, enlarged glands. NEUROLOGICAL: Denies confusion or altered mental status. Denies passing out or loss of consciousness. Denies dizziness or lightheadedness. Denies headache. Denies weakness or paralysis or loss of use of either side. Denies problems with gait or speech. Denies sensory loss, numbness, or tingling. Denies seizures. PSYCHIATRIC: Denies anxiety or stress. Denies depression, suicidal ideation, or homicidal ideation. ALL OTHER SYSTEMS REVIEWED AND NEGATIVE. PHYSICAL EXAMINATION: GENERAL: cachectic appearing female HEAD: Atraumatic, normocephalic. EYES: Pupils equal round and reactive to light, extraocular movements intact, conjunctiva are normal. ENT: Nares patent, oropharynx clear without exudates. Moist mucous membranes. NECK: Normal range of motion, supple without lymphadenopathy LUNGS: Breath sounds clear to auscultation bilaterally and equal. No wheezes rales or rhonchi. HEART: Regular rate and rhythm without murmurs ABDOMEN: Soft, nontender, nondistended abdomen. No guarding, no rebound. No masses appreciated. Female : deferred Musculoskeletal: Normal range of motion, no pitting or edema. No cyanosis. NEUROLOGICAL: Cranial nerves grossly intact. Normal speech, normal gait. Normal sensory, motor exams PSYCH: Normal mood, normal affect. SKIN: power port in place Dictation was performed using [employer] voice recognition software Physical Exam - Vital signs Vitals: Temp Pulse Resp BP Pulse Ox 98.3 F 95 16 115/73 100 12/10/16 08:56 08/18/17 08:56 12/10/16 08:56 12/10/16 08:56 12/10/16 08:56 Course - Re-evaluation Re-evalutation: 12/10/16 10:08 Lab work CTA pending to rule out pulmonary emboli, otherwise patient looks well , I will give her IV fluids nausea pain control 12/10/16 12:20 hyperkalemia treatment started, pt denies any concerns, notes she is eating alot of bananas. 12/10/16 13:58 Potassium has improved 4.2, patient stable for discharge. I will discharge her with understand they must return immediately if there is any other complaints After performing a Medical Screening Examination, I estimate there is LOW risk for RUPTURED ESOPHAGUS, PNEUMOTHORAX, PULMONARY EMBOLISM, ACUTE CORONARY SYNDROME, OR THORACIC AORTIC DISSECTION, thus I consider the discharge disposition reasonable. I have reevaluated this patient multiple times and no significant life threatening changes are noted. The patient and I have discussed the diagnosis and risks, and we agree with discharging home with close follow-up. We also discussed returning to the Emergency Department immediately if new or worsening symptoms occur. We have discussed the symptoms which are most concerning (e.g., bloody sputum, worsening pain or shortness of breath) that necessitate immediate return. - Vital Signs Vital signs: Temp Pulse Resp BP Pulse Ox 98.3 F 95 12 110/67 100 12/10/16 08:56 12/10/16 08:56 12/10/16 13:15 12/10/16 13:15 12/10/16 13:14 - Laboratory Result Diagrams: 12/10/16 10:20 12/10/16 13:00 Laboratory results interpreted by me: 12/10/16 12/10/16 12/10/16 10:20 10:20 13:00 Hgb 10.9 L Hct 33.5 L RDW 21.1 H Plt Count 580 H Potassium 6.2 H* Chloride 108 H Carbon Dioxide 20 L Est GFR (Non-Af Amer) 59 L Glucose 211 H Total Protein 6.2 L Albumin 3.4 L Discharge - Discharge Clinical Impression: Hyperkalemia Uterine cancer Qualifiers: Malignant neoplasm of uterus location: unspecified site of uterus Qualified Code(s): C55 - Malignant neoplasm of uterus, part unspecified Condition: Stable Disposition: HOME, SELF-CARE Instructions: Potassium ([facility]) Additional Instructions: You must be seen by her primary care physician for reevaluation tomorrow or return immediately if there are any other concerns Prescriptions: Oxycodone HCl/Acetaminophen [Percocet 5-325 mg Tablet] 1 - 2 tab PO Q4H PRN #15 tablet PRN Reason: Referrals: CYNTHIA WINTERS MD [Primary Care Provider] - Follow up as needed
[2016-12-10] MEDS ORDERED: ONDANSETRON HCL INJ/PF 4 MG/2 ML SDV IV ONE (10:09)
[2016-12-10] MEDS ORDERED: HYDROMORPHONE HCL INJ/PF 2 MG/ML AMPULE IV ONE ×3 (10:09→14:04)
[2016-12-10] MEDS ORDERED: NORMAL SALINE 1000 ML 1,000 ML IV ONE ×2 (10:09→12:23)
[2016-12-10 10:39] LABS: ABSOLUTE EOSINOPHILS # (AUTO) 0.2 10^3/uL (0.0-0.6); ABSOLUTE LYMPHOCYTES (AUTO) 0.9 10^3/uL (0.5-4.7); ABSOLUTE MONOCYTES (AUTO) 0.2 10^3/uL (0.1-1.4); BASOPHILS % (AUTO) 0.7 % (0-2); EOSINOPHILS % (AUTO) 4.5 % (0-6); HEMATOCRIT 33.5 % (36.0-47.0); HEMOGLOBIN 10.9 g/dL (12.0-15.5); HGB HCT DIFFERENCE -0.8; LYMPHOCYTES % (AUTO) 20.7 % (13-45); MEAN CORPUSCULAR HEMOGLOBIN 28.4 pg (27.0-33.4); MEAN CORPUSCULAR HGB CONC 32.5 g/dL (32.0-36.0); MONOCYTES % (AUTO) 4.1 % (3-13); RED BLOOD COUNT 3.82 10^6/uL (3.72-5.28); RED CELL DISTRIBUTION WIDTH 21.1 % (11.5-14.0); WHITE BLOOD COUNT 4.3 10^3/uL (4.0-10.5)
[2016-12-10 10:51] LABS: MEAN CORPUSCULAR VOLUME 88 fl (80-97)
[2016-12-10 10:54] LABS: ALANINE AMINOTRANSFERASE 20 U/L (9-52); ALBUMIN 4.5 g/dL (3.5-5.0); ALKALINE PHOSPHATASE 124 U/L (38-126); ANION GAP 9 (5-19); ASPARTATE AMINO TRANSFERASE 20 U/L (14-36); BILIRUBIN,DIRECT 0.4 mg/dL (0.0-0.4); BILIRUBIN,TOTAL 0.5 mg/dL (0.2-1.3); BLOOD UREA NITROGEN 20 mg/dL (7-20); CALCIUM 9.8 mg/dL (8.4-10.2); CARBON DIOXIDE 25 mmol/L (22-30); CHLORIDE 104 mmol/L (98-107); CREATININE RESULT 0.97 mg/dL (0.52-1.25); GLUCOSE 92 mg/dL (75-110); LIPASE 107.9 U/L (23-300); SODIUM 138.1 mmol/L (137-145); TOTAL PROTEIN 7.9 g/dL (6.3-8.2)
[2016-12-10 10:58] LABS: POTASSIUM 6.2 mmol/L (3.6-5.0)
[2016-12-10] MEDS ORDERED: ALBUTEROL SULFATE HFA (90 MCG/PUFF) 8 GM MDI (1 MDI/ER DISP) IH PRN (11:00)
[2016-12-10] MEDS ORDERED: SODIUM BICARBONATE 8.4% INJ 50 MEQ/50 ML DISP.SYRIN IV ONE (11:01)
[2016-12-10] MEDS ORDERED: INSULIN REG, HUMAN 100 UNIT/ML 3 ML VIAL (PYX) IV ONE (11:01)
[2016-12-10] MEDS ORDERED: DEXTROSE 50%-WATER 25 GM/50 ML DISP.SYRIN IV ONE (11:01)
--- NOTE | 2016-12-10 11:23 | RADIOLOGY REPORT (SQ) ---
EXAM DESCRIPTION: CTA CHEST COMPLETED DATE/TIME: 12/10/2016 11:08 am REASON FOR STUDY: sob, chemo uterine cancer COMPARISON: Chest films 04/23/2015, 07/21/2015, 11/17/2016, 12/01/2016 Ventilation-perfusion scan 11/18/2016 TECHNIQUE: CT scan of the chest performed using helical scanning technique with dynamic intravenous contrast injection. Images reviewed with lung, soft tissue and bone windows. Reconstructed coronal and sagittal MPR images reviewed. Additional 3 dimensional post-processing performed to develop Maximal Intensity Projection images (MS P). All images stored on PACS. All CT scanners at this facility use dose modulation, iterative reconstruction, and/or weight based d osing when appropriate to reduce radiation dose to as low as reasonably achievable (ALARA). [facility]: Dose Right [facility]: CareDose [facility]: Dose Right [facility]: Teradose 4D [facility]: Prieto Battery CONTRAST TYPE AND DOSE: contrast/concentration: Isovue 370.00 mg/ml; Total Contrast Delivered: 66.0 ml; Total Saline Delivered: 85.0 ml RENAL FUNCTION: Creatinine 0.75 RADIATION DOSE: Up-to-date CT equipment and radiation dose reduction techniques were employed. CTDIv ol: 13.2 - 14.6 mGy. DLP: 524 mGy-cm. . LIMITATIONS: None. FINDINGS: LUNGS AND PLEURA: No masses, infiltrates, pneumothorax. No pleural effusions, calcificati ons. AORTA AND GREAT VESSELS: No aneurysm or dissection. HEART: No pericardial effusion. PULMONARY ARTERIES: No emboli visualized in the main pulmonary arteries or the segmental branches. HILAR AND MEDIASTINAL STRUCTURES: No identified masses or abnormal nodes. HARDWARE: None in the chest. UPPER ABDOMEN: Post gastric bypass. Post cholecystectomy. Limited exam. THYROID AND OTHER SOFT TISSUES: No masses. No adenopathy. BONES: No acute or significant finding. 3D MIPS: Confirm above findings. OTHER: Right jugular central line tip superior vena cava IMPRESSION: NORMAL CTA OF THE CHEST. NO PULMONARY EMBOLI. TECHNICAL DOCUMENTATION: JOB ID: [id number] Quality ID # [id number]: Final reports with documentation of one or more dose reduction techniques (e.g., Au tomated exposure control, adjustment of the mA and/or kV according to patient size, use of iterative reconstruction technique) 2010 [employer] All Rights Reserved
[2016-12-10] MEDS ORDERED: ALBUTEROL SULFATE 0.083% NEB 2.5 MG/3 ML AMPUL NEB ONE (11:49)
[2016-12-10] MEDS ORDERED: SODIUM POLYSTYRENE SULFONATE 15 GM/60 ML PO ONE (12:19)
[2016-12-10 13:29] LABS: ALANINE AMINOTRANSFERASE 21 U/L (9-52); ALBUMIN 3.4 g/dL (3.5-5.0); ALKALINE PHOSPHATASE 93 U/L (38-126); ANION GAP 10 (5-19); ASPARTATE AMINO TRANSFERASE 17 U/L (14-36); BILIRUBIN,DIRECT 0.3 mg/dL (0.0-0.4); BILIRUBIN,TOTAL 0.3 mg/dL (0.2-1.3); BLOOD UREA NITROGEN 20 mg/dL (7-20); CALCIUM 8.4 mg/dL (8.4-10.2); CARBON DIOXIDE 20 mmol/L (22-30); CHLORIDE 108 mmol/L (98-107); CREATININE RESULT 0.91 mg/dL (0.52-1.25); GLUCOSE 211 mg/dL (75-110); SODIUM 137.9 mmol/L (137-145); TOTAL PROTEIN 6.2 g/dL (6.3-8.2)
[2016-12-10 13:38] LABS: POTASSIUM 4.2 mmol/L (3.6-5.0)
[2016-12-10 14:21] VITALS: BP 100/67
--- NOTE | 2016-12-10 18:46 | EKG REPORT ---
SEVERITY:- ABNORMAL ECG - SINUS RHYTHM LEFT VENTRICULAR HYPERTROPHY : Confirmed by: Torsten Mayes MD 10-Dec-2016 18:45:23
== END 2016-12-10 14:30 | disposition home or self-care (01) ==
LOC: ER 08:45
DX: C55 Malignant neoplasm of uterus, part unspecified (principal); E87.5 Hyperkalemia; R06.02 Shortness of breath; R53.1 Weakness; Z79.899 Other long term (current) drug therapy
CPT/HCPCS: 93005; 36591; 96376; 94640; 99285; 96361; 96374; 96375; 36415; 83690; 85025; 80053; 71275; 93010; J3490 ×2; J1170; A9270 ×2; J2405; J7030; J1815

== ENCOUNTER 2017-01-04 07:13 | Outpatient (CLI) | payer MEDICARE ==
[~2017-01-04 07:13] MED LIST changes: -ACETAMINOPHEN 325 MG TABLET PO PRN; -CEFAZOLIN 1 GM/D5W RTU 1 GM/50 ML RTUPB IV PRN; -CEFAZOLIN 2 GM/D5W RTU 2 GM/50 ML RTUPB IV PRN; +FERRIC CARBOXYMALTOSE 750 MG in NORMAL SALINE 250 ML IV PRN; +NORMAL SALINE 250 ML IV PRN
[2017-01-04 08:15] VITALS: BP 136/72
== END 2017-01-04 09:07 | disposition home or self-care (01) ==
LOC: II 07:13 → 5TH 07:15 → II 09:07
PROVIDERS: ATTEND Internal Medicine
PROC: 3E043GC Introduction of Other Therapeutic Substance into Central Vein, Percutaneous Approach (ICD-10-PCS; principal; 2017-01-04)
DX: D64.9 Anemia, unspecified (principal)
CPT/HCPCS: 96365; J7050; J1439; 96523

== ENCOUNTER 2017-01-05 14:58 | Inpatient (IN) | payer MEDICARE ==
[2017-01-05] MEDS ORDERED: NORMAL SALINE 1000 ML 2,000 ML IV ONE (15:05)
--- NOTE | 2017-01-05 15:18 | ER Document Report ---
ED Syncope and Near Syncope - General Chief Complaint: Syncope Stated Complaint: DIZZINESS Time Seen by Provider: 01/05/17 15:04 TRAVEL OUTSIDE OF THE [place] IN LAST 30 DAYS: No - HPI Notes: 56-year-old female with history of gastric bypass and hypertension currently undergoing chemotherapy with last chemotherapy 8 days ago for her ovarian cancer. Patient presents with a syncopal episode that occurred at home. She did go to her PCPs office and developed a lightheaded sensation after getting home. She was there for a flu shot. She has taken her lisinopril today. Denies recent illness though she has had some nausea. Temperature yesterday 99.3 but no other fever. Denies dysuria hematuria. Admits to some black stools a couple days ago but took Pepto-Bismol for this. She has had a recent iron infusion by Dr. Russell. Her hemoglobin 2 days ago was 9.1 and white blood cell count 5.4. She was noted to have hypotension on arrival per EMS and a systolic pressure in the 70s even after normal saline 500 mL bolus. She did receive 4 mg of Zofran in route. She has no other infectious symptoms, cough or cold symptoms rhinorrhea. Denies rash. Denies abdominal pain chest pain or breathing difficulty. - Related Data Allergies/Adverse Reactions: No Known Allergies Allergy (Verified 12/10/16 08:55) Past Medical History - Social History Smoking Status: Never Smoker Family History: Reviewed & Not Pertinent - Past Medical History Cardiac Medical History: Reports: Hx Hypertension Denies: Hx Atrial Fibrillation, Hx Congestive Heart Failure, Hx Coronary Artery Disease, Hx DVT, Hx Heart Attack, Hx Hypercholesterolemia, Hx Pulmonary Embolism Pulmonary Medical History: Denies: Hx Asthma, Hx Bronchitis, Hx COPD, Hx Pneumonia, Hx Sleep Apnea Neurological Medical History: Denies: Hx Cerebrovascular Accident, Hx Seizures Endocrine Medical History: Denies: Hx Diabetes Mellitus Type 1, Hx Diabetes Mellitus Type 2, Hx Hyperthyroidism, Hx Hypothyroidism Renal/ Medical History: Denies: Hx Peritoneal Dialysis Malignancy Medical History: Reports: Hx Cervical Cancer GI Medical History: Denies: Hx Cirrhosis, Hx Gastroesophageal Reflux Disease, Hx Hepatitis Musculoskeltal Medical History: Reports Hx Arthritis Psychiatric Medical History: Reports: Hx Depression - History of Infectious Medical History: Denies: Hx Hepatitis Past Surgical History: Reports: Hx Abdominal Surgery - gastric bypass, hernia repair x 2 bowel obstruction, Hx Cholecystectomy, Hx Gastric Bypass Surgery, Hx Herniorrhaphy - 2, Hx Hysterectomy, Hx Neurologic Surgery - CARPAL TUNNEL, Other - Exploratory laparotomy for small bowel obstruction since gastric bypass - Immunizations Hx Diphtheria, Pertussis, Tetanus Vaccination: No Review of Systems - Review of Systems -: Yes All other systems reviewed and negative Physical Exam - Vital signs Vitals: Temp Pulse Resp 98.5 F 78 16 01/05/17 15:00 01/05/17 15:00 01/05/17 15:00 Interpretation: Hypotensive - Notes Notes: Physical Exam: GENERAL: VS as per nursing doc. chronically ill-appearing, well-nourished and in no acute distress. HEAD: Atraumatic, normocephalic. EYES: Pupils equal round and reactive to light, extraocular movements intact, sclera anicteric, no conjunctival injection or discharge but is slightly pale. ENT: Nares patent, oropharynx clear without exudates. Slightly dry mucous membranes. NECK: Normal range of motion, supple without lymphadenopathy. No JVD. No Carotid Bruits. LUNGS: Breath sounds clear to auscultation bilaterally and equal. No wheezes rales or rhonchi. Port site without evidence of infection HEART: Normal S1S2. Regular rate and rhythm without murmurs. Weak but equal peripheral pulses. ABDOMEN: Soft, non-tender EXTREMITIES: Normal range of motion. No calf tenderness. Negative Homans. No edema. NEUROLOGICAL: Cranial nerves grossly intact. Normal speech. Normal sensory and motor exams. No gross cerebellar abnormalities. PSYCH: Normal mood, normal affect. SKIN: Cool, dry, no cyanosis, no splinter hemorrhages. Cap refill < 2 sec. Course - Re-evaluation Re-evalutation: 01/05/17 16:[address] Russell we will go on and provide the patient a dose of antibiotics. Appears most consistent with upper GI bleed so she will receive Protonix. GI consult is pending. We have ordered emergency release as the patient is requiring Levophed to maintain a good blood pressure. Patient really only had mucus on rectal exam, there was no gross blood or melena noted. 01/05/17 16:32 Dr. Levin had message left on phone as no answer X 1. - Vital Signs Vital signs: Temp Pulse Resp BP Pulse Ox 98.5 F 78 18 140/70 H 98 01/05/17 15:00 01/05/17 15:00 01/05/17 16:04 01/05/17 16:04 01/05/17 16:04 - Laboratory Result Diagrams: 01/05/17 15:10 01/05/17 15:10 Laboratory results interpreted by me: 01/05/17 01/05/17 01/05/17 15:10 15:10 15:41 RBC 2.17 L Hgb 6.6 L Hct 19.4 L RDW 22.6 H Plt Count 135 L Band Neutrophils % 8 H Chloride 109 H Carbon Dioxide 21 L Calcium 8.2 L AST 12 L Total Protein 5.6 L Albumin 3.0 L Crossmatch See Detail - EKG Interpretation by Me EKG shows normal: Sinus rhythm - Normal sinus rhythm, bradycardic, no clear ischemia. QRS duration normal - Consults [facility] Time consulted: 16:45 - ICU admit. I also have spoke with Dr. Levin who is aware of patient. Discharge - Discharge Clinical Impression: Hypotension, Upper GI bleed, Anemia Condition: Critical Disposition: ADMITTED INPATIENT Admitting Provider: Hospitalist Unit Admitted: ICU Referrals: CYNTHIA WINTERS MD [Primary Care Provider] - Follow up as needed
[2017-01-05] MEDS ORDERED: DEXTROSE 5%-WATER 250 ML with NOREPINEPHRINE BITARTRATE 4 MG IV PRN ×2 (15:30)
[2017-01-05] MEDS ORDERED: NOREPINEPHRINE BITARTRATE INJ/PF 4 MG/4 ML SDV IV ONE (15:35)
[2017-01-05 15:40] LABS: VENOUS BLOOD HCO3 23.8 mmol/L (20-32); VENOUS BLOOD PCO2 46.8 mmHg (35-63); VENOUS BLOOD PH 7.33 (7.30-7.42)
[2017-01-05 15:43] LABS: PROTHROMBIN TIME 13.3 SEC (11.4-15.4)
[2017-01-05 15:52] LABS: HEMATOCRIT 19.4 % (36.0-47.0); HGB HCT DIFFERENCE 0.4; MEAN CORPUSCULAR HEMOGLOBIN 30.7 pg (27.0-33.4); MEAN CORPUSCULAR HGB CONC 34.2 g/dL (32.0-36.0); MEAN CORPUSCULAR VOLUME 90 fl (80-97); RED BLOOD COUNT 2.17 10^6/uL (3.72-5.28); RED CELL DISTRIBUTION WIDTH 22.6 % (11.5-14.0); WHITE BLOOD COUNT 7.1 10^3/uL (4.0-10.5)
[2017-01-05 15:56] LABS: ALANINE AMINOTRANSFERASE 16 U/L (9-52); ALKALINE PHOSPHATASE 91 U/L (38-126); ANION GAP 11 (5-19); ASPARTATE AMINO TRANSFERASE 12 U/L (14-36); BILIRUBIN,DIRECT 0.2 mg/dL (0.0-0.4); BILIRUBIN,TOTAL 0.2 mg/dL (0.2-1.3); BLOOD UREA NITROGEN 15 mg/dL (7-20); CALCIUM 8.2 mg/dL (8.4-10.2); CARBON DIOXIDE 21 mmol/L (22-30); CHLORIDE 109 mmol/L (98-107); CREATININE RESULT 0.94 mg/dL (0.52-1.25); GLUCOSE 108 mg/dL (75-110); POTASSIUM 4.3 mmol/L (3.6-5.0); SODIUM 140.8 mmol/L (137-145); TOTAL PROTEIN 5.6 g/dL (6.3-8.2)
[2017-01-05 16:10] LABS: BAND NEUTROPHILS % (MANUAL) 8 % (3-5); BASOPHILS % (MANUAL) 1 % (0-2); EOSINOPHILS % (MANUAL) 1 % (0-6); LYMPHOCYTES % (MANUAL) 19 % (13-45); TOTAL CELLS COUNTED 100; TOXIC GRANULATION 1+; TOXIC VACUOLATION PRESENT
--- NOTE | 2017-01-05 16:10 | RADIOLOGY REPORT (SQ) ---
EXAM DESCRIPTION: CHEST SINGLE VIEW COMPLETED DATE/TIME: 01/05/2017 3:38 pm REASON FOR STUDY: Hypotension COMPARISON: AP chest 12/01/2016 CT angio chest 12/10/2016 EXAM PARAMETERS: NUMBER OF VIEWS: One view. TECHNIQUE: Single frontal radiographic view of the chest acquired. RADIATION DOSE: NA LIMITATIONS: None. FINDINGS: LUNGS AND PLEURA: No opacities, masses or pneumothorax. No pleural effusion. MEDIASTINUM AND HILAR STRUCTURES: No masses. Contour normal. HEART AND VASCULAR STRUCTURES: Heart normal in size. Normal vasculature. BONES: No acute findings. HARDWARE: Right jugular central line tip superior vena cava OTHER: No other significant finding. IMPRESSION: NO ACUTE RADIOGRAPHIC FINDING IN THE CHEST. TECHNICAL DOCUMENTATION: JOB ID: [id number]
[2017-01-05 16:13] LABS: ANISOCYTOSIS 3+; OVALOCYTES SLIGHT; PLATELET CLUMPS PRESENT; POLYCHROMASIA SLIGHT; TEAR DROP CELLS SLIGHT
[2017-01-05 16:15] LABS: HEMOGLOBIN 6.6 g/dL (12.0-15.5)
[2017-01-05] MEDS ORDERED: NORMAL SALINE 250 ML IV PRN ×2 (16:17)
[2017-01-05] MEDS ORDERED: PIPERACILLIN/TAZOBACTAM 3.375 GM VIAL IV ONE (16:29)
[2017-01-05] MEDS ORDERED: PANTOPRAZOLE SODIUM 40 MG VIAL IV ONE (16:32)
[2017-01-05] MEDS ORDERED: PANTOPRAZOLE SODIUM 40 MG VIAL IV PRN ×2 (16:39→17:34)
[2017-01-05] MEDS ORDERED: LIDOCAINE 4% TRANSPARENT DRESSING 5 GM KIT TP ONE (16:50)
[2017-01-05] MEDS ORDERED: ONDANSETRON HCL INJ/PF 4 MG/2 ML SDV IV PRN (17:18)
--- NOTE | 2017-01-05 17:44 | PDOC H&P ---
History of Present Illness Admission Date/PCP: 01/05/17 16:56 CYNTHIA WINTERS MD Patient complains of: Weak and dizzy. Patient was found to have a hemoglobin of 6.5 History of Present Illness: KSENIA BROWN is a 56 year old female who has a history of uterine cancer being treated by Dr. Johana Nichole. The patient last received her chemotherapy 9 days ago. The patient went to her primary care doctor today and received a flu vaccine. The patient stated she felt weak and tired and when a blood pressure was obtained she was noted to be hypotensive. The patient when she presented to the emergency room had a systolic blood pressure in the 60s. This has responded to IV fluids and vasopressors. Patient had blood draws that showed her hemoglobin is 6.5. Patient reports that she had a hemoglobin checked yesterday and it was 10. She does report that she has had melena overnight. She denies any abdominal pain but does report taking Motrin several times daily for the last several days. Patient denies having any fevers or chills. She denies any chest pain or shortness of breath. She denies any hematemesis. The patient the time of my exam had artery received 1 unit of packed red blood cells and 3 L of IV fluids and her blood pressure was up to 90 and was off of the levo fed. Patient is being admitted for acute GI bleed with hypotension. Past Medical History Cardiac Medical History: Reports: Hypertension Denies: Atrial Fibrillation, Congestive Heart Failure, Coronary Artery Disease, DVT, Myocardial Infarction, Hyperlipidema, Pulmonary Embolism Pulmonary Medical History: Denies: Asthma, Bronchitis, Chronic Obstructive Pulmonary Disease (COPD), Pneumonia, Sleep Apnea EENT Medical History: Reports: Cataracts Neurological Medical History: Reports: None Denies: Seizures Endocrine Medical History: Reports: None Renal/ Medical History: Reports: Other - She previously had acute renal failure after gastric bypass surgery. Malignancy Medical History: Reports: Cervical Cancer - Uterine cancer GI Medical History: Denies: Cirrhosis, Gastroesophageal Reflux Disease, Hepatitis Musculoskeltal Medical History: Reports: Arthritis Skin Medical History: Reports: None Psychiatric Medical History: Reports: Depression - History of Traumatic Medical History: Reports: None Hematology: Denies: Anemia Infectious Medical History: Reports: None Past Surgical History Past Surgical History: Reports: Cholecystectomy, Gastric Bypass Surgery, Herniorrhaphy - 2, Hysterectomy, Other - Exploratory laparotomy for small bowel obstruction since gastric bypass Social History Information Source: Patient Lives with: Spouse/Significant other Smoking Status: Never Smoker Frequency of Alcohol Use: None Hx Recreational Drug Use: No Drugs: None Hx Prescription Drug Abuse: No - Advance Directive Resuscitation Status: Full Code Surrogate healthcare decision maker:: Family History Family History: Mother in her 70s and had peripheral artery disease. Father in his 70s from multiple myeloma. Parental Family History Reviewed: Yes Children Family History Reviewed: No Sibling(s) Family History Reviewed.: No Medication/Allergy Allergies/Adverse Reactions: No Known Allergies Allergy (Verified 12/10/16 08:55) Review of Systems Constitutional: ABSENT: chills, fever(s), headache(s), night sweats, weight gain , weight loss Eyes: ABSENT: visual disturbances Ears: ABSENT: hearing changes Cardiovascular: ABSENT: chest pain, dyspnea on exertion, edema, orthropnea, palpitations Respiratory: ABSENT: cough, hemoptysis Gastrointestinal: PRESENT: melena. ABSENT: abdominal pain, coffee ground emesis , nausea, vomiting Genitourinary: ABSENT: dysuria, hematuria Integumentary: ABSENT: rash, wounds Neurological: ABSENT: abnormal gait, abnormal speech, confusion, dizziness, focal weakness, syncope Psychiatric: ABSENT: anxiety, depression Hematologic/Lymphatic: ABSENT: easy bleeding, easy bruising Physical Exam Vital Signs: Temp Pulse Resp BP Pulse Ox 98.5 F 78 18 140/70 H 98 01/05/17 15:00 01/05/17 15:00 01/05/17 16:04 01/05/17 16:04 01/05/17 16:04 General appearance: PRESENT: no acute distress Head exam: PRESENT: atraumatic, normocephalic Eye exam: PRESENT: conjunctiva pink, EOMI, PERRLA. ABSENT: scleral icterus Ear exam: PRESENT: normal external ear exam Mouth exam: PRESENT: moist, tongue midline Neck exam: ABSENT: carotid bruit, JVD, lymphadenopathy, thyromegaly Respiratory exam: PRESENT: clear to auscultation kami. ABSENT: rales, rhonchi, wheezes Cardiovascular exam: PRESENT: RRR. ABSENT: diastolic murmur, rubs, systolic murmur Vascular exam: PRESENT: normal capillary refill GI/Abdominal exam: PRESENT: normal bowel sounds, soft. ABSENT: distended, guarding, mass, organolmegaly, rebound, tenderness Rectal exam: PRESENT: heme (+) stool - Done by the emergency room physician. Extremities exam: ABSENT: calf tenderness, clubbing, pedal edema Neurological exam: PRESENT: alert, awake, oriented to person, oriented to place , oriented to time, oriented to situation, CN II-XII grossly intact. ABSENT: motor sensory deficit Psychiatric exam: PRESENT: appropriate affect Skin exam: PRESENT: dry, intact, warm. ABSENT: cyanosis, rash Results Impressions: Chest X-Ray 01/05/17 15:06 IMPRESSION: NO ACUTE RADIOGRAPHIC FINDING IN THE CHEST. Assessment & Plan - Diagnosis (1) Hypotension Qualifiers: Is this a current diagnosis for this admission?: Yes Plan: The patient has been getting chemotherapy for uterine cancer. There is no evidence for any type of infection. This most likely is related to the acute GI bleed with blood loss anemia. Patient has gotten IV fluids, packed red blood cells as well as vasopressors. Vasopressors have been stopped as her pressure has improved. Will admit to the intensive care unit for close monitoring. Patient has been started on Zosyn because of her recent chemotherapy although she is not neutropenic and there is no evidence for infection. If her blood pressure remains normal overnight we will probably stop it tomorrow after discussion with oncology. (2) Upper GI bleed Is this a current diagnosis for this admission?: Yes Plan: Patient has taken some ibuprofen and had melanotic stool. She most likely has a peptic ulcer as the cause for her GI bleeding. Patient has received 1 unit of packed red blood cells. Will check a hemoglobin after the second unit. She has already been started on a Protonix drip. GI has been consulted for consideration of an EGD. (3) Acute blood loss anemia Is this a current diagnosis for this admission?: Yes Plan: We will transfuse as needed. (4) HTN (hypertension) Is this a current diagnosis for this admission?: Yes Plan: We will hold her lisinopril as her blood pressure is low. (5) Cervical cancer Qualifiers: Is this a current diagnosis for this admission?: Yes Plan: Patient has a history of uterine cancer and has been getting chemotherapy with Dr. Russell (6) Depression Is this a current diagnosis for this admission?: Yes - Time Time Spent: 50 to 70 Minutes - Inpatient Certification Medical Necessity: Need Close Monitoring Due to Risk of Patient Decompensation - Plan Summary Plan Summary: Patient will be admitted to the intensive care unit because of hypotension and the need for close monitoring.
[2017-01-05] MEDS ORDERED: PIPERACILLIN SODIUM/TAZOBACTAM 3.375 GM in NORMAL SALINE 100 ML IV SCH (18:00)
[2017-01-05 18:15] LABS: APPEARANCE,URINE CLEAR; BILIRUBIN,URINE NEGATIVE (NEGATIVE); GLUCOSE, URINE 50 mg/dL (NEGATIVE); KETONES,URINE NEGATIVE (NEGATIVE); LEUKOCYTE ESTERASE,URINE NEGATIVE (NEGATIVE); NITRITE,URINE NEGATIVE (NEGATIVE); PROTEIN,URINE NEGATIVE (NEGATIVE); URINE SPECIFIC GRAVITY 1.006; UROBILINOGEN,URINE NEGATIVE mg/dL (<2.0)
--- NOTE | 2017-01-05 18:24 | PDOC CONSULTATION ---
Consultation Consult Date: 01/05/17 Attending physician:: GUZMAN HERNANDEZ Consult reason:: Possible GI bleed, chronic anemia, black stools History of Present Illness Admission Date/PCP: 01/05/17 17:19 CYNTHIA WINTERS MD History of Present Illness: I have asked to see this patient by the ED physician on an urgent basis. patient was admitted by Dr Narayanan she does see Dr Alexandra for chemotherapy, . was at her PCP office and was given medication. upon returning home was dizzy and fell a few times she does admit to see black stools , on several occasions all of Wednesday 01/03 had CBC done, Hgb at that time was 9.1 by Tuesday, her black stools had stopped patient states that she had been taking Peptobismol for a " stomach upset" she has had GOP in the past complicated by extended 35 day stay for possible " leak" , details are otherwise not available at this time patient states started to see dark stools after she took Peptobismol she went back to see Dr Alexandra on Tuesday and had BUN/ Creat drawn ( by now no further blood stools noted) and those numbers were normal she presented today due to her dizziness, falling and was noted to have a H/H of about 6. she apparently had hypotension and need to be on BP support with Levophed patient states had similar episode during the last admission when she was in the ICU here at [facility] patient did not have GI consult at that time when I saw her she seems to be stable, not looking pale, she is getting a unit of PRBC at this time she has never had a GI work up in the past will need to have GI work up done to include both an EGD and colonoscopy since she has not had a screening in the past while she does have chronic anemia, she does require iron transfusion that she received on Tuesday, will need to exclude an upper GI bleed at this time have spoken to both Dr Narayanan and Dr Hankins with regards to my findings Past Medical History Cardiac Medical History: Reports: Hypertension Denies: Atrial Fibrillation, Congestive Heart Failure, Coronary Artery Disease, DVT, Myocardial Infarction, Hyperlipidema, Pulmonary Embolism Pulmonary Medical History: Denies: Asthma, Bronchitis, Chronic Obstructive Pulmonary Disease (COPD), Pneumonia, Sleep Apnea EENT Medical History: Reports: Cataracts Neurological Medical History: Reports: None Denies: Seizures Endocrine Medical History: Reports: None Denies: Diabetes Mellitus Type 1, Diabetes Mellitus Type 2, Hyperthyroidism, Hypothyroidism Renal/ Medical History: Reports: Other - She previously had acute renal failure after gastric bypass surgery. Malignancy Medical History: Reports: Cervical Cancer - Uterine cancer GI Medical History: Denies: Cirrhosis, Gastroesophageal Reflux Disease, Hepatitis Musculoskeltal Medical History: Reports: Arthritis Skin Medical History: Reports: None Psychiatric Medical History: Reports: Depression - History of Traumatic Medical History: Reports: None Hematology: Denies: Anemia Infectious Medical History: Reports: None Past Surgical History Past Surgical History: Reports: Cholecystectomy, Gastric Bypass Surgery, Herniorrhaphy - 2, Hysterectomy, Other - Exploratory laparotomy for small bowel obstruction since gastric bypass Social History Lives with: Spouse/Significant other Smoking Status: Never Smoker Frequency of Alcohol Use: None Hx Recreational Drug Use: No Drugs: None Hx Prescription Drug Abuse: No - Advance Directive Resuscitation Status: Full Code Family History Family History: Reviewed & Not Pertinent Parental Family History Reviewed: Yes Children Family History Reviewed: Unknown Sibling(s) Family History Reviewed.: Unknown Medication/Allergy Home Medications: Cyclobenzaprine HCl [Flexeril 10 mg Tablet] 10 mg PO TIDP PRN 01/05/17 Hydrocodone/Acetaminophen [Francisco 10-325 mg Tablet] 1 tab PO Q8HP PRN 01/05/17 Lisinopril [Prinivil 40 mg Tablet] 40 mg PO DAILY 01/05/17 Quetiapine Fumarate [Seroquel 25 mg Tablet] 25 mg PO QHS 01/05/17 Allergies/Adverse Reactions: No Known Allergies Allergy (Verified 12/10/16 08:55) Review of Systems Constitutional: PRESENT: weakness. ABSENT: fever(s), headache(s), night sweats Eyes: ABSENT: visual disturbances Ears: ABSENT: hearing changes Nose, Mouth, and Throat: ABSENT: mouth pain Cardiovascular: ABSENT: chest pain, edema, orthropnea, palpitations Respiratory: ABSENT: dyspnea, hemoptysis Gastrointestinal: PRESENT: nausea. ABSENT: abdominal pain, diarrhea, hematemesis Genitourinary: ABSENT: dysuria, hematuria Musculoskeletal: ABSENT: deformity, joint swelling Integumentary: ABSENT: lesions, pruritus Neurological: PRESENT: syncope, weakness. ABSENT: tingling, tremor(s), vertigo Psychiatric: PRESENT: anxiety Endocrine: ABSENT: polydipsia, polyphagia, polyuria Hematologic/Lymphatic: ABSENT: easy bruising Physical Exam Vital Signs: Temp Pulse Resp BP Pulse Ox 98.5 F 78 17 113/63 100 01/05/17 15:00 01/05/17 15:00 01/05/17 17:38 01/05/17 17:38 01/05/17 17:38 Intake & Output 01/04/17 01/05/17 01/06/17 06:59 06:59 06:59 Output Total 650 Balance -650 General appearance: PRESENT: mild distress, well-developed, well-nourished Head exam: PRESENT: atraumatic, normocephalic Eye exam: PRESENT: EOMI, PERRLA. ABSENT: scleral icterus Mouth exam: PRESENT: moist, neck supple Throat exam: ABSENT: tonsillar exudate, tonsillogmegaly Neck exam: ABSENT: meningismus, tenderness, thyromegaly Respiratory exam: PRESENT: symmetrical, unlabored. ABSENT: tachypnea, wheezes Cardiovascular exam: PRESENT: RRR, +S1, +S2 GI/Abdominal exam: PRESENT: soft. ABSENT: Waldron's sign, rebound, rigid, tenderness Extremities exam: ABSENT: joint swelling Neurological exam: PRESENT: awake, oriented to time, oriented to situation, CN II-XII grossly intact Skin exam: PRESENT: normal color. ABSENT: mottled, pallor, urticaria, vesicles Results Impressions: Chest X-Ray 01/05/17 15:06 IMPRESSION: NO ACUTE RADIOGRAPHIC FINDING IN THE CHEST. Assessment & Plan - Diagnosis (1) Acute blood loss anemia Is this a current diagnosis for this admission?: Yes Plan: patient does have chronic anemia as evidence by need for iron transfusion she could have had an upper GI bleeding but her BUN /Creat ratio immediately after " supposed bleeding" was normal and on the labs today has not demonstrated an increase. usually in an upper GI bleed that BUN will rise, Creat stay normal and it is not reflected her labs she did also take some Peptobismol she does however have some nausea and dyspepsia she has had a GOP in the past she will need an EGD to rule out for possible anastomotic ulcer with bleeding patient to be started on a PPI drip in the process of being transfused will need EGD tomorrow unless signs of bleeding requiring more urgent attention if negative will need colonoscopy , she has not had screening in the past (2) Upper GI bleed Is this a current diagnosis for this admission?: Yes Plan: as noted above, may need bleeding scan ? if some of her vitals are due to other causes, continue to monitor monitor for GI bleeding which would be quite obvious, with melena (3) History of gastric bypass Plan: concern is for possible anastomotic ulcer EGD as noted (4) Encounter for screening colonoscopy Plan: she has not colon screening in the past if EGD is negative, may want to consider colonoscopy prior to discharge otherwise can schedule as an outpatient will see what the findings are on her EGD and make further recommendations with regards to future plans - Time Time Spent: 50 to 70 Minutes
[2017-01-05] MEDS ORDERED: PIPERACILLIN SODIUM/TAZOBACTAM 3.375 GM in DEXTROSE 5%-WATER 100 ML IV ONE (19:00)
[2017-01-05 19:10] LABS: HEMATOCRIT 23.6 % (36.0-47.0); HEMOGLOBIN 8.3 g/dL (12.0-15.5); HGB HCT DIFFERENCE 1.3; MEAN CORPUSCULAR HEMOGLOBIN 31.3 pg (27.0-33.4); MEAN CORPUSCULAR VOLUME 90 fl (80-97); RED BLOOD COUNT 2.63 10^6/uL (3.72-5.28); RED CELL DISTRIBUTION WIDTH 20.9 % (11.5-14.0); WHITE BLOOD COUNT 7.1 10^3/uL (4.0-10.5)
[2017-01-05 19:33] LABS: BAND NEUTROPHILS % (MANUAL) 9 % (3-5); BASOPHILS % (MANUAL) 0 % (0-2); EOSINOPHILS % (MANUAL) 1 % (0-6); LYMPHOCYTES % (MANUAL) 14 % (13-45); TOTAL CELLS COUNTED 100
[2017-01-05 19:34] LABS: ANISOCYTOSIS 2+; TOXIC GRANULATION SLIGHT; TOXIC VACUOLATION PRESENT
[2017-01-05] MEDS: MORPHINE SULFATE 10 MG/ML INJ IV PRN ×2 (19:38→23:59)
[2017-01-05] MEDS: NORMAL SALINE 1000 ML 1,000 ML IV PRN (19:38)
--- NOTE | 2017-01-05 22:55 | EKG REPORT ---
SEVERITY:- BORDERLINE ECG - SINUS RHYTHM VENTRICULAR PREMATURE COMPLEX BORDERLINE PROLONGED QT INTERVAL : Confirmed by: Sadie Matta 05-Jan-2017 22:54:45
[2017-01-05] MEDS: PIPERACILLIN SODIUM/TAZOBACTAM 3.375 GM in DEXTROSE 5%-WATER 100 ML IV SCH (23:59)
[2017-01-06 00:08] LABS: HEMATOCRIT 22.9 % (36.0-47.0); HGB HCT DIFFERENCE 0.2; MEAN CORPUSCULAR HEMOGLOBIN 30.6 pg (27.0-33.4); MEAN CORPUSCULAR HGB CONC 33.5 g/dL (32.0-36.0); MEAN CORPUSCULAR VOLUME 91 fl (80-97); RED BLOOD COUNT 2.51 10^6/uL (3.72-5.28); WHITE BLOOD COUNT 7.5 10^3/uL (4.0-10.5)
[2017-01-06 00:23] LABS: HEMOGLOBIN 7.7 g/dL (12.0-15.5)
[2017-01-06] MEDS: NORMAL SALINE 100 ML with PANTOPRAZOLE SODIUM 80 MG IV PRN ×6 (01:10→16:37)
[2017-01-06] MEDS: MORPHINE SULFATE 10 MG/ML INJ IV PRN ×5 (03:37→21:31)
[2017-01-06] MEDS: PIPERACILLIN SODIUM/TAZOBACTAM 3.375 GM in DEXTROSE 5%-WATER 100 ML IV SCH ×3 (05:16→17:20)
[2017-01-06 05:26] LABS: HEMATOCRIT 22.3 % (36.0-47.0); HGB HCT DIFFERENCE 1.7; MEAN CORPUSCULAR HEMOGLOBIN 31.7 pg (27.0-33.4); MEAN CORPUSCULAR HGB CONC 35.7 g/dL (32.0-36.0); MEAN CORPUSCULAR VOLUME 89 fl (80-97); RED BLOOD COUNT 2.51 10^6/uL (3.72-5.28); RED CELL DISTRIBUTION WIDTH 19.9 % (11.5-14.0); WHITE BLOOD COUNT 6.1 10^3/uL (4.0-10.5)
[2017-01-06 05:44] LABS: ANION GAP 8 (5-19); BLOOD UREA NITROGEN 10 mg/dL (7-20); CALCIUM 8.2 mg/dL (8.4-10.2); CARBON DIOXIDE 20 mmol/L (22-30); CHLORIDE 116 mmol/L (98-107); CREATININE RESULT 0.82 mg/dL (0.52-1.25); GLUCOSE 78 mg/dL (75-110); POTASSIUM 3.8 mmol/L (3.6-5.0); SODIUM 143.8 mmol/L (137-145)
--- NOTE | 2017-01-06 08:00 | PDOC CONSULTATION ---
Consultation Consult Date: 01/06/17 Attending physician:: ARTUR MATTHEWS Consult reason:: Lower GI bleed, known history of uterine cancer, currently on chemotherapy. History of Present Illness Admission Date/PCP: 01/05/17 17:19 CYNTHIA WINTERS MD Patient complains of: Weakness, fall, black stool History of Present Illness: 56-year-old female with known history of uterine cancer, currently on chemotherapy. She received so far 3 cycles of carboplatin/paclitaxel, last cycle was given 12/28/16. She had a CBC drawn in our office this past Tuesday, hemoglobin was 9.1 and stable with her usual hemoglobin. She has known history of gastric bypass with poor oral absorption of iron, so we have given her IV iron in the past and we were giving her IV iron this past week as well. Starting Tuesday evening she began having black tarry stool, she had several episodes Tuesday and Tuesday. They were foul-smelling and sticky. Yesterday her give us a call, they apparently were shopping and she almost had a syncopal episode, he brought her home and she was difficult to arouse, ultimately she came to [facility] ED, there her blood pressure was 60/30, she was tachycardic, lethargic, hemoglobin is found to be 6.6. She was seen by gastroenterology who is planning on upper endoscopy this morning. She has not had a colonoscopy in some time. Past Medical History Cardiac Medical History: Reports: Hypertension Denies: Atrial Fibrillation, Congestive Heart Failure, Coronary Artery Disease, DVT, Myocardial Infarction, Hyperlipidema, Pulmonary Embolism Pulmonary Medical History: Denies: Asthma, Bronchitis, Chronic Obstructive Pulmonary Disease (COPD), Pneumonia, Sleep Apnea EENT Medical History: Reports: Cataracts Neurological Medical History: Reports: None Denies: Seizures Endocrine Medical History: Reports: None Denies: Diabetes Mellitus Type 1, Diabetes Mellitus Type 2, Hyperthyroidism, Hypothyroidism Renal/ Medical History: Reports: Other - She previously had acute renal failure after gastric bypass surgery. Malignancy Medical History: Reports: Cervical Cancer - Uterine cancer GI Medical History: Denies: Cirrhosis, Gastroesophageal Reflux Disease, Hepatitis Musculoskeltal Medical History: Reports: Arthritis Skin Medical History: Reports: None Psychiatric Medical History: Reports: Depression - History of Traumatic Medical History: Reports: None Hematology: Denies: Anemia Infectious Medical History: Reports: None Past Surgical History Past Surgical History: Reports: Cholecystectomy, Gastric Bypass Surgery, Herniorrhaphy - 2, Hysterectomy, Other - Exploratory laparotomy for small bowel obstruction since gastric bypass Social History Lives with: Spouse/Significant other Smoking Status: Never Smoker Frequency of Alcohol Use: None Hx Recreational Drug Use: No Drugs: None Hx Prescription Drug Abuse: No - Advance Directive Resuscitation Status: Full Code Family History Family History: Reviewed & Not Pertinent Parental Family History Reviewed: Yes Children Family History Reviewed: Yes Sibling(s) Family History Reviewed.: Yes Medication/Allergy Home Medications: Cyclobenzaprine HCl [Flexeril 10 mg Tablet] 10 mg PO TIDP PRN 01/05/17 Hydrocodone/Acetaminophen [[place]iff 10-325 mg Tablet] 1 tab PO Q8HP PRN 01/05/17 Lisinopril [Prinivil 40 mg Tablet] 40 mg PO DAILY 01/05/17 Quetiapine Fumarate [Seroquel 25 mg Tablet] 25 mg PO QHS 01/05/17 Allergies/Adverse Reactions: No Known Allergies Allergy (Verified 12/10/16 08:55) Review of Systems Constitutional: PRESENT: fatigue, weakness Cardiovascular: PRESENT: dyspnea on exertion, palpitations Respiratory: ABSENT: cough, hemoptysis Gastrointestinal: PRESENT: melena Neurological: ABSENT: abnormal gait, abnormal speech, confusion, dizziness, focal weakness, syncope Physical Exam Vital Signs: Temp Pulse Resp BP Pulse Ox 98.8 F 73 11 L 136/72 H 100 01/05/17 18:12 01/05/17 18:55 01/06/17 06:12 01/06/17 06:12 01/06/17 06:12 Intake & Output 01/05/17 01/06/17 01/07/17 06:59 06:59 06:59 Intake Total 1402 Output Total 1150 Balance 252 Weight 77.4 kg General appearance: PRESENT: no acute distress, well-developed, well-nourished Head exam: PRESENT: atraumatic, normocephalic Eye exam: PRESENT: conjunctiva pink, EOMI, PERRLA. ABSENT: scleral icterus Ear exam: PRESENT: normal external ear exam Mouth exam: PRESENT: moist, tongue midline Neck exam: ABSENT: carotid bruit, JVD, lymphadenopathy, thyromegaly Respiratory exam: PRESENT: clear to auscultation kami. ABSENT: rales, rhonchi, wheezes Cardiovascular exam: PRESENT: RRR. ABSENT: diastolic murmur, rubs, systolic murmur Pulses: PRESENT: normal dorsalis pedis pul Vascular exam: PRESENT: normal capillary refill GI/Abdominal exam: PRESENT: normal bowel sounds, soft. ABSENT: distended, guarding, mass, organolmegaly, rebound, tenderness Rectal exam: PRESENT: deferred Extremities exam: PRESENT: full ROM. ABSENT: calf tenderness, clubbing, pedal edema Neurological exam: PRESENT: alert, awake, oriented to person, oriented to place , oriented to time, oriented to situation, CN II-XII grossly intact. ABSENT: motor sensory deficit Psychiatric exam: PRESENT: appropriate affect, normal mood. ABSENT: homicidal ideation, suicidal ideation Skin exam: PRESENT: dry, intact, warm. ABSENT: cyanosis, rash Results Laboratory Results: 01/06/17 05:05 01/06/17 05:05 01/05/17 01/05/17 01/05/17 17:45 18:53 20:07 WBC 7.1 RBC 2.63 L Hgb 8.3 L Hct 23.6 L MCV 90 MCH 31.3 MCHC 35.0 RDW 20.9 H Plt Count 112 L Seg Neutrophils % Not Reportable Lymphocytes % Not Reportable Monocytes % Not Reportable Eosinophils % Not Reportable Basophils % Not Reportable Absolute Neutrophils Not Reportable Absolute Lymphocytes Not Reportable Absolute Monocytes Not Reportable Absolute Eosinophils Not Reportable Absolute Basophils Not Reportable Sodium Potassium Chloride Carbon Dioxide Anion Gap BUN Creatinine Est GFR ( Amer) Est GFR (Non-Af Amer) Glucose Lactic Acid 1.0 Calcium Urine Color YELLOW Urine Appearance CLEAR Urine pH 5.0 Ur Specific Phillips 1.006 Urine Protein NEGATIVE Urine Glucose (UA) 50 H Urine Ketones NEGATIVE Urine Blood NEGATIVE Urine Nitrite NEGATIVE Ur Leukocyte Esterase NEGATIVE Urine WBC (Auto) 1 Urine RBC (Auto) 0 01/05/17 01/06/17 01/06/17 23:55 05:05 05:05 WBC 7.5 6.1 RBC 2.51 L 2.51 L Hgb 7.7 L 8.0 L Hct 22.9 L 22.3 L MCV 91 89 MCH 30.6 31.7 MCHC 33.5 35.7 RDW 21.0 H 19.9 H Plt Count 100 L 101 L Seg Neutrophils % Lymphocytes % Monocytes % Eosinophils % Basophils % Absolute Neutrophils Absolute Lymphocytes Absolute Monocytes Absolute Eosinophils Absolute Basophils Sodium 143.8 Potassium 3.8 Chloride 116 H Carbon Dioxide 20 L Anion Gap 8 BUN 10 Creatinine 0.82 Est GFR ( Amer) > 60 Est GFR (Non-Af Amer) > 60 Glucose 78 Lactic Acid Calcium 8.2 L Urine Color Urine Appearance Urine pH Ur Specific Phillips Urine Protein Urine Glucose (UA) Urine Ketones Urine Blood Urine Nitrite Ur Leukocyte Esterase Urine WBC (Auto) Urine RBC (Auto) Impressions: Chest X-Ray 01/05/17 15:06 IMPRESSION: NO ACUTE RADIOGRAPHIC FINDING IN THE CHEST. Assessment & Plan - Diagnosis (1) Upper GI bleed Is this a current diagnosis for this admission?: Yes Plan: Endoscopy plan this morning, Likely upper GI bleed, plan for continued close monitoring. Gastroenterology on board. Patient does have routine steroid infusions with each chemotherapy so she would definitely be a high risk for ulcer disease. (2) Acute blood loss anemia Is this a current diagnosis for this admission?: Yes Plan: Transfused 1 unit of packed red blood cell, she did well with the transfusion and partial weight through the second transfusion she was found to have multiple antibodies. Therefore transfusion was stopped given the fact that her hemoglobin is stable, and workup is pending and plan for continue transfusion as needed. I believe she would do better in the 9-10 range, ultimately, she will require pelvic radiation as well as further chemotherapy thereafter which certainly will be myelosuppressive. (3) Endometrial ca Is this a current diagnosis for this admission?: Yes Plan: Status post cycle #3 of chemotherapy, the next step would be for her to initiate radiation in 4-6 weeks, we will continue this plan as an outpatient. - Time Time Spent: Greater than 70 Minutes Critical Time spent with patient: 35 or more minutes - Inpatient Certification Based on my medical assessment, after consideration of the patient's comorbidities, presenting symptoms, or acuity I expect that the services needed warrant INPATIENT care.: Yes I certify that my determination is in accordance with my understanding of Medicare's requirements for reasonable and necessary INPATIENT services [42 CFR 412.3e].: Yes Medical Necessity: Need For Continuous Telemetry Monitoring, Need for Surgery, Risk of Complication if Not Cared For in Hospital
[2017-01-06] MEDS ORDERED: ONDANSETRON HCL INJ/PF 4 MG/2 ML SDV IV PRN (08:30)
[2017-01-06] MEDS: NORMAL SALINE 1000 ML 1,000 ML IV PRN ×2 (09:56→17:27)
[2017-01-06] MEDS ORDERED: NALOXONE HCL INJ/PF 0.4 MG/1 ML SDV ONE (10:36)
[2017-01-06] MEDS ORDERED: ONDANSETRON HCL INJ/PF 4 MG/2 ML SDV ONE (10:36)
[2017-01-06] MEDS ORDERED: DIPHENHYDRAMINE HCL 50 MG/ML VIAL ONE (10:36)
[2017-01-06] MEDS ORDERED: FLUMAZENIL INJ 0.5 MG/5 ML VIAL ONE (10:37)
[2017-01-06] MEDS ORDERED: EPINEPHRINE INJ 1 MG/10 ML DISP.SYRIN ONE (10:37)
[2017-01-06] MEDS ORDERED: GLUCAGON,HUMAN RECOMB 1 MG INJ ONE (10:37)
[2017-01-06] MEDS ORDERED: MIDAZOLAM 2 MG/2 ML INJ ONE (10:37)
[2017-01-06] MEDS: MIDAZOLAM 2 MG/2 ML INJ ONE ×2 (11:32→11:36)
[2017-01-06] MEDS: FENTANYL CITRATE INJ/PF 100 MCG/2 ML AMPUL ONE ×2 (11:34→11:38)
--- NOTE | 2017-01-06 14:22 | Operative Report ---
Operative Report DATE OF SURGERY: 01/06/17 Operative Report: The risks benefits and alternatives of the procedure explained to the patient in detail and informed consent is obtained.A GIF Olympus video scope was inserted into the patient's mouth and hypopharynx, the esophagus is identified intubated and insufflated, the scope was then advanced through the esophagus stomach and duodenum, retroflexion maneuver is done, the esophagus stomach and first and second portions of the duodenum examined PREOPERATIVE DIAGNOSIS: Possible GI bleeding POSTOPERATIVE DIAGNOSIS: Normal EGD except for some mild gastritis noted in the remnant pouch following gastric bypass surgery. About 100 cm of small bowel was evaluated. No blood noted in the upper GI tract. No heme is noted. No clots are noted OPERATION: EGD with biopsy SURGEON: GUZMAN HERNANDEZ ANESTHESIA: Moderate Sedation - 4 mg of Versed, 75 mcg of fentanyl. Conscious sedation monitoring time 30 minutes. TISSUE REMOVED OR ALTERED: Gastric mucosal specimen obtained COMPLICATIONS: None. ESTIMATED BLOOD LOSS: None. INTRAOPERATIVE FINDINGS: As described above. PROCEDURE: Patient tolerated the procedure well. No immediate postprocedure complications are noted. Patient discharged back to her room in good condition. We will follow H&H We will await biopsies Resume regular diet Patient will need colonoscopy can be done as an outpatient since due to sedation today she will not be able to complete the prep by tomorrow She has not had colorectal cancer screening in the past.
--- NOTE | 2017-01-06 15:54 | PDOC PROGRESS REPORT ---
Subjective Progress Note for:: 01/06/17 Subjective:: Patient denies any complaints. She has had no more melena. Physical Exam Vital Signs: Temp Pulse Resp BP Pulse Ox 98.8 F 80 13 144/75 H 97 01/05/17 18:12 01/06/17 12:15 01/06/17 14:03 01/06/17 14:03 01/06/17 14:03 Intake & Output 01/05/17 01/06/17 01/07/17 06:59 06:59 06:59 Intake Total 1402 150 Output Total 1150 270 Balance 252 -120 Weight 77.4 kg General appearance: PRESENT: no acute distress Eye exam: PRESENT: conjunctiva pink. ABSENT: scleral icterus Mouth exam: PRESENT: moist, tongue midline Neck exam: ABSENT: JVD Respiratory exam: PRESENT: clear to auscultation kami. ABSENT: rales, rhonchi, wheezes Cardiovascular exam: PRESENT: RRR. ABSENT: diastolic murmur, rubs, systolic murmur GI/Abdominal exam: PRESENT: normal bowel sounds, soft. ABSENT: distended, guarding, mass, organolmegaly, rebound, tenderness Extremities exam: ABSENT: calf tenderness, clubbing, pedal edema Neurological exam: PRESENT: alert, awake, oriented to person, oriented to place , oriented to time, oriented to situation, CN II-XII grossly intact. ABSENT: motor sensory deficit Psychiatric exam: PRESENT: appropriate affect Skin exam: PRESENT: dry, intact, warm. ABSENT: cyanosis, rash Results Laboratory Results: 01/06/17 05:05 01/06/17 05:05 01/05/17 01/05/17 01/05/17 17:45 18:53 20:07 WBC 7.1 RBC 2.63 L Hgb 8.3 L Hct 23.6 L MCV 90 MCH 31.3 MCHC 35.0 RDW 20.9 H Plt Count 112 L Seg Neutrophils % Not Reportable Lymphocytes % Not Reportable Monocytes % Not Reportable Eosinophils % Not Reportable Basophils % Not Reportable Absolute Neutrophils Not Reportable Absolute Lymphocytes Not Reportable Absolute Monocytes Not Reportable Absolute Eosinophils Not Reportable Absolute Basophils Not Reportable Sodium Potassium Chloride Carbon Dioxide Anion Gap BUN Creatinine Est GFR ( Amer) Est GFR (Non-Af Amer) Glucose Lactic Acid 1.0 Calcium Urine Color YELLOW Urine Appearance CLEAR Urine pH 5.0 Ur Specific [place] 1.006 Urine Protein NEGATIVE Urine Glucose (UA) 50 H Urine Ketones NEGATIVE Urine Blood NEGATIVE Urine Nitrite NEGATIVE Ur Leukocyte Esterase NEGATIVE Urine WBC (Auto) 1 Urine RBC (Auto) 0 01/05/17 01/06/17 01/06/17 23:55 05:05 05:05 WBC 7.5 6.1 RBC 2.51 L 2.51 L Hgb 7.7 L 8.0 L Hct 22.9 L 22.3 L MCV 91 89 MCH 30.6 31.7 MCHC 33.5 35.7 RDW 21.0 H 19.9 H Plt Count 100 L 101 L Seg Neutrophils % Lymphocytes % Monocytes % Eosinophils % Basophils % Absolute Neutrophils Absolute Lymphocytes Absolute Monocytes Absolute Eosinophils Absolute Basophils Sodium 143.8 Potassium 3.8 Chloride 116 H Carbon Dioxide 20 L Anion Gap 8 BUN 10 Creatinine 0.82 Est GFR ( Amer) > 60 Est GFR (Non-Af Amer) > 60 Glucose 78 Lactic Acid Calcium 8.2 L Urine Color Urine Appearance Urine pH Ur Specific [place] Urine Protein Urine Glucose (UA) Urine Ketones Urine Blood Urine Nitrite Ur Leukocyte Esterase Urine WBC (Auto) Urine RBC (Auto) Impressions: Chest X-Ray 01/05/17 15:06 IMPRESSION: NO ACUTE RADIOGRAPHIC FINDING IN THE CHEST. Assessment & Plan - Diagnosis (1) Hypotension Qualifiers: Is this a current diagnosis for this admission?: Yes Plan: The patient has been getting chemotherapy for uterine cancer. There is no evidence for any type of infection. The patient's hemoglobin was low when she presented. It has improved with IV fluids and transfusion of packed red blood cells. Hypotension has resolved. She is stable for transfer out of the intensive care unit when a bed is available on the floor. (2) Upper GI bleed Is this a current diagnosis for this admission?: Yes Plan: Patient has taken some ibuprofen and had melanotic stool. The patient had an upper endoscopy that was negative for any source of bleeding. Will continue to monitor hemoglobin. (3) Acute blood loss anemia Is this a current diagnosis for this admission?: Yes Plan: We will transfuse as needed. (4) HTN (hypertension) Is this a current diagnosis for this admission?: Yes Plan: We will hold her lisinopril as her blood pressure is low. (5) Cervical cancer Qualifiers: Is this a current diagnosis for this admission?: Yes Plan: Has endometrial cancer and has been getting chemotherapy with Dr. Russell (6) Depression Is this a current diagnosis for this admission?: Yes - Time Time Spent with patient: 25-34 minutes - Inpatient Certification Medical Necessity: Need Close Monitoring Due to Risk of Patient Decompensation - Plan Summary Plan Summary: We will transfer out of the intensive care unit to the floor.
[2017-01-07] MEDS: PIPERACILLIN SODIUM/TAZOBACTAM 3.375 GM in DEXTROSE 5%-WATER 100 ML IV SCH ×4 (00:31→18:48)
[2017-01-07] MEDS: NORMAL SALINE 1000 ML 1,000 ML IV PRN ×2 (00:31→08:50)
[2017-01-07] MEDS: MORPHINE SULFATE 10 MG/ML INJ IV PRN ×5 (01:30→18:46)
[2017-01-07] MEDS: NORMAL SALINE 100 ML with PANTOPRAZOLE SODIUM 80 MG IV PRN ×4 (03:30→13:31)
[2017-01-07 06:24] LABS: HEMATOCRIT 23.3 % (36.0-47.0); HEMOGLOBIN 8.2 g/dL (12.0-15.5); HGB HCT DIFFERENCE 1.3; MEAN CORPUSCULAR VOLUME 89 fl (80-97); RED BLOOD COUNT 2.63 10^6/uL (3.72-5.28); RED CELL DISTRIBUTION WIDTH 20.1 % (11.5-14.0); WHITE BLOOD COUNT 5.8 10^3/uL (4.0-10.5)
[2017-01-07 06:26] LABS: ANION GAP 8 (5-19); BLOOD UREA NITROGEN 6 mg/dL (7-20); CALCIUM 8.5 mg/dL (8.4-10.2); CARBON DIOXIDE 20 mmol/L (22-30); CHLORIDE 115 mmol/L (98-107); CREATININE RESULT 0.73 mg/dL (0.52-1.25); GLUCOSE 79 mg/dL (75-110); POTASSIUM 3.8 mmol/L (3.6-5.0); SODIUM 143.1 mmol/L (137-145)
[2017-01-07 06:51] LABS: BAND NEUTROPHILS % (MANUAL) 3 % (3-5); BASOPHILS % (MANUAL) 0 % (0-2); EOSINOPHILS % (MANUAL) 2 % (0-6); LYMPHOCYTES % (MANUAL) 10 % (13-45); NUCLEATED RED BLOOD CELLS 1 /100 WBC (0); TOTAL CELLS COUNTED 100
[2017-01-07 06:53] LABS: ANISOCYTOSIS 2+; HYPOCHROMASIA SLIGHT; OVALOCYTES SLIGHT; POIKILOCYTOSIS SLIGHT; POLYCHROMASIA SLIGHT; TOXIC GRANULATION 1+
[2017-01-07] MEDS ORDERED: NORMAL SALINE 250 ML IV PRN ×2 (07:40)
--- NOTE | 2017-01-07 08:02 | PDOC PROGRESS REPORT ---
Subjective Progress Note for:: 01/07/17 Subjective:: Pt had endoscopy, d/w Dr. Levin also, today spent 45 min in coordination of care. EGD w/ no active bleeding site just gastritis at bypass pouch, colonoscopy now planned as outpt. Blood appropriately typed now, d/w w/ hospitalist who will give 2 units PRBCs today. Appreciate assistance from all specialties in this pts care. Physical Exam Vital Signs: Temp Pulse Resp BP Pulse Ox 98.8 F 72 12 151/72 H 98 01/05/17 18:12 01/06/17 19:10 01/07/17 06:03 01/07/17 06:03 01/07/17 06:03 Intake & Output 01/06/17 01/07/17 01/08/17 06:59 06:59 06:59 Intake Total 1402 4062 Output Total 1150 2990 Balance 252 1072 Weight 77.4 kg 80 kg General appearance: PRESENT: no acute distress, well-developed, well-nourished Head exam: PRESENT: atraumatic, normocephalic Eye exam: PRESENT: conjunctiva pink, EOMI, PERRLA. ABSENT: scleral icterus Ear exam: PRESENT: normal external ear exam Mouth exam: PRESENT: moist, tongue midline Neck exam: ABSENT: carotid bruit, JVD, lymphadenopathy, thyromegaly Respiratory exam: PRESENT: clear to auscultation kami. ABSENT: rales, rhonchi, wheezes Cardiovascular exam: PRESENT: RRR. ABSENT: diastolic murmur, rubs, systolic murmur Pulses: PRESENT: normal dorsalis pedis pul Vascular exam: PRESENT: normal capillary refill GI/Abdominal exam: PRESENT: normal bowel sounds, soft. ABSENT: distended, guarding, mass, organolmegaly, rebound, tenderness Rectal exam: PRESENT: deferred Extremities exam: PRESENT: full ROM. ABSENT: calf tenderness, clubbing, pedal edema Neurological exam: PRESENT: alert, awake, oriented to person, oriented to place , oriented to time, oriented to situation, CN II-XII grossly intact. ABSENT: motor sensory deficit Psychiatric exam: PRESENT: appropriate affect, normal mood. ABSENT: homicidal ideation, suicidal ideation Skin exam: PRESENT: dry, intact, warm. ABSENT: cyanosis, rash Results Laboratory Results: 01/07/17 05:45 01/07/17 05:45 01/07/17 01/07/17 05:45 05:45 WBC 5.8 RBC 2.63 L Hgb 8.2 L Hct 23.3 L MCV 89 MCH 31.0 MCHC 35.0 RDW 20.1 H Plt Count 101 L Seg Neutrophils % Not Reportable Lymphocytes % Not Reportable Monocytes % Not Reportable Eosinophils % Not Reportable Basophils % Not Reportable Absolute Neutrophils Not Reportable Absolute Lymphocytes Not Reportable Absolute Monocytes Not Reportable Absolute Eosinophils Not Reportable Absolute Basophils Not Reportable Sodium 143.1 Potassium 3.8 Chloride 115 H Carbon Dioxide 20 L Anion Gap 8 BUN 6 L Creatinine 0.73 Est GFR ( Amer) > 60 Est GFR (Non-Af Amer) > 60 Glucose 79 Calcium 8.5 Impressions: Chest X-Ray 01/05/17 15:06 IMPRESSION: NO ACUTE RADIOGRAPHIC FINDING IN THE CHEST. Assessment & Plan - Diagnosis (1) Upper GI bleed Is this a current diagnosis for this admission?: Yes Plan: Resolved now, con't to monitor w/ blood tx x 1 more day then likely d/c tomorrow w/ outpt colonoscopy planned. (2) Acute blood loss anemia Is this a current diagnosis for this admission?: Yes Plan: Planned for 2 units PRBCs today, hb has been stable but really need pt to have blood since pelvic radiation is next step which can be myelosuppressive. (3) Endometrial ca Is this a current diagnosis for this admission?: Yes Plan: Planned for further rx as outpt (4) Head ache Qualifiers: Headache type: tension-type Headache chronicity pattern: acute headache Intractability: intractable Qualified Code(s): G44.201 - Tension-type headache , unspecified, intractable Is this a current diagnosis for this admission?: Yes Plan: Plan for fioricet to be given today. - Time Time Spent with patient: 35 or more minutes Critical Time spent with patient: 35 or more minutes - Inpatient Certification Based on my medical assessment, after consideration of the patient's comorbidities, presenting symptoms, or acuity I expect that the services needed warrant INPATIENT care.: Yes I certify that my determination is in accordance with my understanding of Medicare's requirements for reasonable and necessary INPATIENT services [42 CFR 412.3e].: Yes Medical Necessity: Other - need for blood today
[2017-01-07] MEDS ORDERED: BUTALB/ACETAMINOPHEN/CAFFEINE 1 TAB EACH PO PRN (08:25)
[2017-01-07] MEDS: BUTALB/ACETAMINOPHEN/CAFFEINE 1 TAB EACH PO PRN ×2 (08:47→15:20)
--- NOTE | 2017-01-07 12:26 | PDOC PROGRESS REPORT ---
Subjective Progress Note for:: 01/07/17 Subjective:: Patient is stable for transfer. She underwent EGD yesterday which was largely negative. She is getting 2 more units of blood today. I have confirmed with the hospitalist service, along with the patient no further bleeding is noted. She can have an outpatient colonoscopy. She will need that for screening procedures. Physical Exam Vital Signs: Temp Pulse Resp BP Pulse Ox 98.6 F 59 L 16 158/72 H 100 01/07/17 12:15 01/07/17 12:15 01/07/17 12:15 01/07/17 12:15 01/07/17 12:15 Intake & Output 01/06/17 01/07/17 01/08/17 06:59 06:59 06:59 Intake Total 1402 4062 630 Output Total 1150 2990 600 Balance 252 1072 30 Weight 77.4 kg 80 kg General appearance: PRESENT: no acute distress, well-developed, well-nourished Head exam: PRESENT: atraumatic, normocephalic Eye exam: PRESENT: EOMI, PERRLA. ABSENT: nystagmus, periorbital swelling, scleral icterus Mouth exam: PRESENT: moist, neck supple Throat exam: ABSENT: tonsillar exudate, tonsillogmegaly Neck exam: ABSENT: meningismus, tenderness, thyromegaly Respiratory exam: PRESENT: symmetrical, unlabored. ABSENT: tachypnea Cardiovascular exam: PRESENT: RRR, +S1, +S2 GI/Abdominal exam: PRESENT: soft. ABSENT: rebound, rigid, tenderness Extremities exam: ABSENT: joint swelling Musculoskeletal exam: PRESENT: full ROM Neurological exam: PRESENT: oriented to time, oriented to situation, reflexes normal, CN II-XII grossly intact Skin exam: PRESENT: normal color. ABSENT: mottled, pallor, petechiae, urticaria , vesicles Results Laboratory Results: 01/07/17 05:45 01/07/17 05:45 01/07/17 01/07/17 05:45 05:45 WBC 5.8 RBC 2.63 L Hgb 8.2 L Hct 23.3 L MCV 89 MCH 31.0 MCHC 35.0 RDW 20.1 H Plt Count 101 L Seg Neutrophils % Not Reportable Lymphocytes % Not Reportable Monocytes % Not Reportable Eosinophils % Not Reportable Basophils % Not Reportable Absolute Neutrophils Not Reportable Absolute Lymphocytes Not Reportable Absolute Monocytes Not Reportable Absolute Eosinophils Not Reportable Absolute Basophils Not Reportable Sodium 143.1 Potassium 3.8 Chloride 115 H Carbon Dioxide 20 L Anion Gap 8 BUN 6 L Creatinine 0.73 Est GFR ( Amer) > 60 Est GFR (Non-Af Amer) > 60 Glucose 79 Calcium 8.5 01/05/17 17:45 Catheterized Urine Urine Culture - Final NO GROWTH 2 DAYS Impressions: Chest X-Ray 01/05/17 15:06 IMPRESSION: NO ACUTE RADIOGRAPHIC FINDING IN THE CHEST. Assessment & Plan - Diagnosis (1) Acute blood loss anemia Is this a current diagnosis for this admission?: Yes Plan: There was no active bleeding noted on her upper endoscopy yesterday. She denies any further melena. She is getting 2 more units of blood. She did take some Pepto-Bismol which could have caused a dark stools. Alternatively, lesion in the algaaciq stomach that has been bypassed. If that would be the case then she should have further symptoms which she has not. Continue PPI for right now. (2) Upper GI bleed Is this a current diagnosis for this admission?: Yes (4) Encounter for screening colonoscopy Plan: Has not had a screening colonoscopy. 1 stable can be discharged and follow-up as an outpatient. We should be able to get her colonoscopy scheduled this week if patient is willing. - Time Time Spent with patient: 15-24 minutes
[2017-01-07 18:32] VITALS: BP 163/94
--- NOTE | 2017-01-07 18:42 | PDOC DISCHARGE SUMMARY ---
General - Admit/Disc Date/PCP Admission Date/Primary Care Provider: 01/05/17 17:19 CYNTHIA WINTERS MD Discharge Date: 01/07/17 - Discharge Diagnosis (1) Hypotension Is this a current diagnosis for this admission?: Yes Summary: secondary to anemia (2) Upper GI bleed Is this a current diagnosis for this admission?: Yes Summary: EGD was done and was unremarkable. Patient is status post gastric bypass. (3) Acute blood loss anemia Is this a current diagnosis for this admission?: Yes Summary: Patient received 4 units packed red blood cells. (4) HTN (hypertension) Is this a current diagnosis for this admission?: Yes (5) Cervical cancer Is this a current diagnosis for this admission?: Yes Summary: Patient has been getting treatment for uterine cancer with Dr. Russell (6) Depression Is this a current diagnosis for this admission?: Yes - Additional Information Resuscitation Status: Full Code Discharge Diet: Regular Discharge Activity: Activity As Tolerated Home Medications: Cyclobenzaprine HCl [Flexeril 10 mg Tablet] 10 mg PO TIDP PRN 01/05/17 Hydrocodone/Acetaminophen [[place] 10-325 mg Tablet] 1 tab PO Q8HP PRN 01/05/17 Lisinopril [Prinivil 40 mg Tablet] 40 mg PO DAILY 01/05/17 Quetiapine Fumarate [Seroquel 25 mg Tablet] 25 mg PO QHS 01/05/17 History of Present Illness History of Present Illness: KSENIA BROWN is a 56 year old female who has a history of uterine cancer being treated by Dr. Johana Nichole. The patient last received her chemotherapy 9 days ago. The patient went to her primary care doctor today and received a flu vaccine. The patient stated she felt weak and tired and when a blood pressure was obtained she was noted to be hypotensive. The patient when she presented to the emergency room had a systolic blood pressure in the 60s. This has responded to IV fluids and vasopressors. Patient had blood draws that showed her hemoglobin is 6.5. Patient reports that she had a hemoglobin checked yesterday and it was 10. She does report that she has had melena overnight. She denies any abdominal pain but does report taking Motrin several times daily for the last several days. Patient denies having any fevers or chills. She denies any chest pain or shortness of breath. She denies any hematemesis. The patient the time of my exam had artery received 1 unit of packed red blood cells and 3 L of IV fluids and her blood pressure was up to 90 and was off of the levo fed. Patient is being admitted for acute GI bleed with hypotension. Hospital Course Hospital Course: 56-year-old female who is being treated for uterine cancer who presented with hypotension. Patient received her flu vaccine at morning and she thought that her weakness and dizziness was secondary to that. The patient presented to the emergency room and was found to have a blood pressure that was low. She was given IV fluids and was found to have a hemoglobin of 6. Several days previous it had been 10. The patient did report having some black tarry stool night before and had no further episodes of melena. The patient underwent an EGD which showed no evidence for any source of bleeding. Patient's hemoglobin have remained stable and was felt that she would probably need a colonoscopy and evaluation however that will be scheduled as an outpatient. Patient was initially started on antibiotics because the possibility this could be infection. She had a normal white blood cell count and has no obvious source of infection. She was not sent home on any antibiotics. She did not have any neutropenia. Patient will follow up with gastroenterology next week for a colonoscopy. Physical Exam Vital Signs: Temp Pulse Resp BP Pulse Ox 98.8 F 56 L 17 163/94 H 100 01/07/17 17:42 01/07/17 17:42 01/07/17 18:27 01/07/17 18:27 01/07/17 18:13 Intake & Output 01/06/17 01/07/17 01/08/17 06:59 06:59 06:59 Intake Total 1402 4062 870 Output Total 1150 2990 850 Balance 252 1072 20 Weight 77.4 kg 80 kg General appearance: PRESENT: no acute distress Eye exam: PRESENT: conjunctiva pink. ABSENT: scleral icterus Mouth exam: PRESENT: moist, tongue midline Neck exam: ABSENT: JVD Respiratory exam: PRESENT: clear to auscultation kami. ABSENT: rales, rhonchi, wheezes Cardiovascular exam: PRESENT: RRR. ABSENT: diastolic murmur, rubs, systolic murmur GI/Abdominal exam: PRESENT: normal bowel sounds, soft. ABSENT: distended, guarding, mass, organolmegaly, rebound, tenderness Extremities exam: ABSENT: calf tenderness, clubbing, pedal edema Neurological exam: PRESENT: alert, awake, oriented to person, oriented to place , oriented to time, oriented to situation, CN II-XII grossly intact. ABSENT: motor sensory deficit Psychiatric exam: PRESENT: appropriate affect Skin exam: PRESENT: dry, intact, warm. ABSENT: cyanosis, rash Results Laboratory Results: 01/07/17 17:30 01/07/17 05:45 01/07/17 01/07/17 01/07/17 05:45 05:45 17:30 WBC 5.8 Cancelled RBC 2.63 L Cancelled Hgb 8.2 L Cancelled Hct 23.3 L Cancelled MCV 89 Cancelled MCH 31.0 Cancelled MCHC 35.0 Cancelled RDW 20.1 H Cancelled Plt Count 101 L Cancelled Seg Neutrophils % Not Reportable Cancelled Lymphocytes % Not Reportable Cancelled Monocytes % Not Reportable Cancelled Eosinophils % Not Reportable Cancelled Basophils % Not Reportable Cancelled Absolute Neutrophils Not Reportable Cancelled Absolute Lymphocytes Not Reportable Cancelled Absolute Monocytes Not Reportable Cancelled Absolute Eosinophils Not Reportable Cancelled Absolute Basophils Not Reportable Cancelled Sodium 143.1 Potassium 3.8 Chloride 115 H Carbon Dioxide 20 L Anion Gap 8 BUN 6 L Creatinine 0.73 Est GFR ( Amer) > 60 Est GFR (Non-Af Amer) > 60 Glucose 79 Calcium 8.5 01/05/17 17:45 Catheterized Urine Urine Culture - Final NO GROWTH 2 DAYS Impressions: Chest X-Ray 01/05/17 15:06 IMPRESSION: NO ACUTE RADIOGRAPHIC FINDING IN THE CHEST. Qualifiers PATEINT BEING DISCHARGED WITH ANY OF THE FOLLOWING DIAGNOSIS?: No Plan Discharge Plan: Patient is discharged home. She will follow-up with her oncologist and gastrornterologist next week for a colonoscopy. Time Spent: Greater than 30 Minutes
[2017-01-07 19:03] LABS: HEMATOCRIT 29.2 % (36.0-47.0); HEMOGLOBIN 10.2 g/dL (12.0-15.5); HGB HCT DIFFERENCE 1.4; MEAN CORPUSCULAR HEMOGLOBIN 30.1 pg (27.0-33.4); MEAN CORPUSCULAR HGB CONC 34.9 g/dL (32.0-36.0); MEAN CORPUSCULAR VOLUME 86 fl (80-97); RED BLOOD COUNT 3.39 10^6/uL (3.72-5.28); RED CELL DISTRIBUTION WIDTH 19.5 % (11.5-14.0); WHITE BLOOD COUNT 10.4 10^3/uL (4.0-10.5)
[2017-01-07 19:33] LABS: BAND NEUTROPHILS % (MANUAL) 1 % (3-5); BASOPHILS % (MANUAL) 0 % (0-2); EOSINOPHILS % (MANUAL) 0 % (0-6); LYMPHOCYTES % (MANUAL) 10 % (13-45); TOTAL CELLS COUNTED 100
[2017-01-07 19:34] LABS: TOXIC GRANULATION 1+; TOXIC VACUOLATION PRESENT
[2017-01-07 19:36] LABS: ACANTHOCYTES 1+; ANISOCYTOSIS 2+; BURR CELLS 1+; OVALOCYTES 1+; POIKILOCYTOSIS 1+; POLYCHROMASIA 1+
== END 2017-01-07 20:10 | disposition home or self-care (01) | DRG 378 ==
LOC: ER 14:58 → EH 16:56 → UNDOADMIN 16:56 → EH 17:19 → ICU 18:06
PROVIDERS: ADMIT Internal Medicine; ATTEND Internal Medicine
PROC: 30233N1 Transfusion of Nonautologous Red Blood Cells into Peripheral Vein, Percutaneous Approach (ICD-10-PCS; 2017-01-05)
PROC: 0DB68ZX Excision of Stomach, Via Natural or Artificial Opening Endoscopic, Diagnostic (ICD-10-PCS; principal; 2017-01-06 12:00)
PROC: 30233N1 Transfusion of Nonautologous Red Blood Cells into Peripheral Vein, Percutaneous Approach (ICD-10-PCS; 2017-01-07)
DX: K92.2 Gastrointestinal hemorrhage, unspecified (principal); D62 Acute posthemorrhagic anemia; I95.9 Hypotension, unspecified; K29.70 Gastritis, unspecified, without bleeding; I10 Essential (primary) hypertension; F32.9 Major depressive disorder, single episode, unspecified; Z79.899 Other long term (current) drug therapy; C55 Malignant neoplasm of uterus, part unspecified; M19.90 Unspecified osteoarthritis, unspecified site; Z90.49 Acquired absence of other specified parts of digestive tract; Z98.84 Bariatric surgery status
CPT/HCPCS: 36415; 36430; 43239; 71010; 80048; 80053; 81001; 82272; 82803; 83605; 85025; 85027; 85610; 86850; 86870; 86900; 86901; 86920; 86922; 87040; 87086; 88305; 93005; 93010; 96365; 96374; 96523; 99285; J0171; J1200; J1439; J1610; J2250; J2270; J2310; J2405; J2543; J3010; J3490; J7030; J7050; J7060; P9016; S0164

== ENCOUNTER 2017-01-11 08:02 | Outpatient (CLI) | payer MEDICARE ==
[2017-01-11 08:20] VITALS: BP 135/66
== END 2017-01-11 08:57 | disposition home or self-care (01) ==
LOC: II 08:02 → 5TH 08:03 → II 08:57
PROVIDERS: ATTEND Internal Medicine
PROC: 3E043GC Introduction of Other Therapeutic Substance into Central Vein, Percutaneous Approach (ICD-10-PCS; principal; 2017-01-11)
DX: D50.8 Other iron deficiency anemias (principal); K90.9 Intestinal malabsorption, unspecified
CPT/HCPCS: 96365; J7050; J1439

== ENCOUNTER 2017-01-14 06:58 | Day surgery (SDC) | payer MEDICARE ==
[2017-01-14] MEDS ORDERED: PROPOFOL INJ 200 MG/20 ML VIAL IV ONE (10:04)
--- NOTE | 2017-01-14 11:21 | Operative Report ---
Operative Report DATE OF SURGERY: 01/14/17 Operative Report: The risks, benefits and alternatives of the procedure including risks of bleeding, perforation requiring surgery are explained to the patient in detail and informed consent was obtained. Patient was taken back to the endoscopy suite and placed in the left, lateral decubital position. Timeout was called. Propofol medications administered. A rectal examination was done which did not reveal any masses, tears or fissures. An Olympus videoscope was inserted into the patient's rectum it is carefully advanced all the way to the cecum. Cecum was identified by the usual anatomical landmarks including the ileocecal valve as well as the appendiceal office. Photodocumentation is obtained. Scope was then sequentially pulled back via the various segments of the colon including the ascending colon, hepatic flexure, transverse colon, splenic flexure, descending colon finding to the rectosigmoid portions of the colon. Retroflexion maneuvers performed. PREOPERATIVE DIAGNOSIS: Colorectal cancer screening POSTOPERATIVE DIAGNOSIS: Mild proctitis, there appears to be a stiffness in the rectum. Patient does have a history of previous uterine cancer is about to receive radiation treatment. OPERATION: Colonoscopy with biopsy SURGEON: GUZMAN HERNANDEZ ANESTHESIA: LMAC TISSUE REMOVED OR ALTERED: Rectal mucosal specimen obtained to rule out colitis , fibrosis COMPLICATIONS: None. ESTIMATED BLOOD LOSS: None. INTRAOPERATIVE FINDINGS: No other masses, polyps or diverticulosis noted. PROCEDURE: Patient tolerated procedure well. No immediate postprocedure comp occasions are noted. Patient discharged in good condition. Discharge date 01/14/2017. Discharge diet: Regular. Discharge activity: Regular. 2-3 week follow-up to discuss findings. 5 year surveillance colonoscopy clinically patient is able to have good functional status. We will wait on biopsies. Patient is instructed to call the office or proceed to the emergency room should there be any further problems or questions.
[2017-01-14 12:01] VITALS: BP 159/81
== END 2017-01-14 12:08 | disposition home or self-care (01) ==
LOC: OROUT 06:58
PROVIDERS: ATTEND Internal Medicine Gastroenterology
PROC: 0DBP8ZX Excision of Rectum, Via Natural or Artificial Opening Endoscopic, Diagnostic (ICD-10-PCS; principal; 2017-01-14 10:00)
DX: Z12.11 Encounter for screening for malignant neoplasm of colon (principal); I10 Essential (primary) hypertension; K62.89 Other specified diseases of anus and rectum; M19.90 Unspecified osteoarthritis, unspecified site; C55 Malignant neoplasm of uterus, part unspecified; Z79.899 Other long term (current) drug therapy
CPT/HCPCS: 45380; 88305 ×2; J2704; 810

== ENCOUNTER 2017-01-24 13:38 | Outpatient (CLI) | payer MEDICARE ==
[2017-01-24] MEDS ORDERED: NORMAL SALINE 250 ML IV PRN (14:15)
[2017-01-24] MEDS ORDERED: DIPHENHYDRAMINE HCL 25 MG CAPSULE PO PRN (14:17)
[2017-01-24] MEDS ORDERED: ACETAMINOPHEN 325 MG TABLET PO PRN (14:17)
[2017-01-24] MEDS ORDERED: FUROSEMIDE 20 MG TABLET PO PRN (14:19)
[2017-01-24 15:40] LABS: HEMATOCRIT 28.3 % (36.0-47.0); HEMOGLOBIN 10.1 g/dL (12.0-15.5); MEAN CORPUSCULAR HEMOGLOBIN 31.9 pg (27.0-33.4); MEAN CORPUSCULAR HGB CONC 35.7 g/dL (32.0-36.0); RED BLOOD COUNT 3.16 10^6/uL (3.72-5.28); WHITE BLOOD COUNT 3.6 10^3/uL (4.0-10.5)
[2017-01-24 15:49] LABS: MEAN CORPUSCULAR VOLUME 90 fl (80-97)
[2017-01-24] MEDS: OXYCODONE HCL IR 5 MG TABLET PO PRN ×2 (16:15→20:36)
[2017-01-24] MEDS ORDERED: (PENDING PHARMACY ID) (Zolpidem Tartrate [Ambien] 10 MG) PO PRN (16:36)
[2017-01-24] MEDS ORDERED: (PENDING PHARMACY ID) (Tizanidine Hcl [Zanaflex] 4 MG) PO PRN (16:36)
[2017-01-24] MEDS ORDERED: OXYCODONE HCL IR 5 MG TABLET PO PRN (16:36)
[2017-01-24] MEDS ORDERED: TIZANIDINE HCL 4 MG TABLET PO PRN (16:45)
[2017-01-24] MEDS ORDERED: ZOLPIDEM TARTRATE 5 MG TABLET PO PRN (22:00)
[2017-01-25] MEDS ORDERED: FUROSEMIDE 20 MG TABLET PO PRN (01:11)
[2017-01-25] MEDS: OXYCODONE HCL IR 5 MG TABLET PO PRN ×2 (01:21→06:32)
[2017-01-25 07:30] LABS: ABSOLUTE EOSINOPHILS # (AUTO) 0.2 10^3/uL (0.0-0.6); ABSOLUTE LYMPHOCYTES (AUTO) 0.4 10^3/uL (0.5-4.7); ABSOLUTE MONOCYTES (AUTO) 0.3 10^3/uL (0.1-1.4); ABSOLUTE NEUT (AUTO) 2.3 10^3/uL (1.7-8.2); BASOPHILS % (AUTO) 0.4 % (0-2); EOSINOPHILS % (AUTO) 7.3 % (0-6); HEMATOCRIT 31.2 % (36.0-47.0); HEMOGLOBIN 11.1 g/dL (12.0-15.5); HGB HCT DIFFERENCE 2.1; LYMPHOCYTES % (AUTO) 11.9 % (13-45); MEAN CORPUSCULAR HEMOGLOBIN 30.9 pg (27.0-33.4); MEAN CORPUSCULAR HGB CONC 35.4 g/dL (32.0-36.0); MEAN CORPUSCULAR VOLUME 87 fl (80-97); MONOCYTES % (AUTO) 9.5 % (3-13); RED BLOOD COUNT 3.58 10^6/uL (3.72-5.28); RED CELL DISTRIBUTION WIDTH 20.2 % (11.5-14.0); SEGMENTED NEUTROPHILS % (AUTO) 70.9 % (42-78); WHITE BLOOD COUNT 3.3 10^3/uL (4.0-10.5)
[2017-01-25 08:54] VITALS: BP 99/53
[2017-01-25] MEDS ORDERED: ESCITALOPRAM OXALATE 10 MG TABLET PO SCH (10:00)
[2017-01-25] MEDS ORDERED: LISINOPRIL 10 MG TABLET PO SCH (10:00)
[2017-01-25] MEDS ORDERED: (PENDING PHARMACY ID) (Multivitamin/Iron/Folic Acid [Centrum Adults Tablet] 1 TAB) PO SCH (10:00)
[2017-01-25] MEDS ORDERED: MULTIVITAMIN TABLET PO SCH (10:00)
[2017-01-25] MEDS ORDERED: OXYCODONE HCL IR 5 MG TABLET PO ONE (10:00)
== END 2017-01-25 14:35 | disposition home or self-care (01) ==
LOC: II 13:38 → 4N 13:45 → II 01-25 14:35
PROVIDERS: ATTEND Internal Medicine
PROC: 30243N1 Transfusion of Nonautologous Red Blood Cells into Central Vein, Percutaneous Approach (ICD-10-PCS; principal; 2017-01-24)
PROC: 30243N1 Transfusion of Nonautologous Red Blood Cells into Central Vein, Percutaneous Approach (ICD-10-PCS; 2017-01-25)
DX: D64.9 Anemia, unspecified (principal)
CPT/HCPCS: 86900; 86901; 36415; 36430; 86870; 86850; 86922; 85025; 86920; P9016; A9270 ×6

== ENCOUNTER 2017-01-30 10:54 | Inpatient (IN) | payer MEDICARE ==
[2017-01-30] MEDS ORDERED: NORMAL SALINE 1000 ML 1,000 ML IV ONE (11:16)
[2017-01-30] MEDS ORDERED: LIDOCAINE 5% (700 MG) TRANSDERMAL ADH..PATCH TP ONE (11:16)
[2017-01-30] MEDS ORDERED: LIDOCAINE 4%/TETRACAINE 0.5%/EPI 0.18% 5 ML TOPICAL SOLN TOP ONE (11:16)
--- NOTE | 2017-01-30 12:11 | RADIOLOGY REPORT (SQ) ---
EXAM DESCRIPTION: CHEST SINGLE VIEW COMPLETED DATE/TIME: 01/30/2017 12:03 pm REASON FOR STUDY: hypotesnion COMPARISON: 01/05/2017 EXAM PARAMETERS: NUMBER OF VIEWS: One view. TECHNIQUE: Single frontal radiographic view of the chest acquired. RADIATION DOSE: NA LIMITATIONS: None. FINDINGS: LUNGS AND PLEURA: No opacities, masses or pneumothorax. No pleural effusion. MEDIASTINUM AND HILAR STRUCTURES: No masses. Contour normal. HEART AND VASCULAR STRUCTURES: Heart normal in size. Normal vasculature. BONES: No acute findings. HARDWARE: Stable. OTHER: No other significant finding. IMPRESSION: NO ACUTE RADIOGRAPHIC FINDING IN THE CHEST. NO SIGNIFICANT CHANGE FROM PRIOR STUDY. TECHNICAL DOCUMENTATION: JOB ID: [id number]
[2017-01-30 12:18] LABS: ABSOLUTE EOSINOPHILS # (AUTO) 0.4 10^3/uL (0.0-0.6); ABSOLUTE LYMPHOCYTES (AUTO) 0.3 10^3/uL (0.5-4.7); ABSOLUTE MONOCYTES (AUTO) 0.4 10^3/uL (0.1-1.4); ABSOLUTE NEUT (AUTO) 4.2 10^3/uL (1.7-8.2); BASOPHILS % (AUTO) 0.2 % (0-2); HEMATOCRIT 26.8 % (36.0-47.0); HEMOGLOBIN 9.4 g/dL (12.0-15.5); HGB HCT DIFFERENCE 1.4; LYMPHOCYTES % (AUTO) 5.2 % (13-45); MEAN CORPUSCULAR HEMOGLOBIN 30.6 pg (27.0-33.4); MEAN CORPUSCULAR VOLUME 87 fl (80-97); MONOCYTES % (AUTO) 8.3 % (3-13); RED BLOOD COUNT 3.07 10^6/uL (3.72-5.28); RED CELL DISTRIBUTION WIDTH 19.7 % (11.5-14.0); SEGMENTED NEUTROPHILS % (AUTO) 79.3 % (42-78); VENOUS BLOOD BASE EXCESS -5.4 mmol/L; VENOUS BLOOD HCO3 22.2 mmol/L (20-32); VENOUS BLOOD PH 7.26 (7.30-7.42); WHITE BLOOD COUNT 5.3 10^3/uL (4.0-10.5)
[2017-01-30 12:25] LABS: PROTHROMBIN TIME 14.5 SEC (11.4-15.4)
[2017-01-30 12:26] LABS: PARTIAL THROMBOPLASTIN TIME 54.2 SEC (23.5-35.8)
[2017-01-30 12:36] LABS: ALANINE AMINOTRANSFERASE 24 U/L (9-52); ALBUMIN 3.5 g/dL (3.5-5.0); ALKALINE PHOSPHATASE 88 U/L (38-126); ANION GAP 16 (5-19); ASPARTATE AMINO TRANSFERASE 14 U/L (14-36); BILIRUBIN,DIRECT 0.5 mg/dL (0.0-0.4); BILIRUBIN,TOTAL 0.5 mg/dL (0.2-1.3); BLOOD UREA NITROGEN 38 mg/dL (7-20); CALCIUM 8.7 mg/dL (8.4-10.2); CARBON DIOXIDE 21 mmol/L (22-30); CHLORIDE 98 mmol/L (98-107); CREATININE RESULT 5.05 mg/dL (0.52-1.25); GLUCOSE 79 mg/dL (75-110); LIPASE 34.8 U/L (23-300); POTASSIUM 4.2 mmol/L (3.6-5.0); SODIUM 134.5 mmol/L (137-145); TOTAL PROTEIN 5.9 g/dL (6.3-8.2)
[2017-01-30] MEDS: NORMAL SALINE 1000 ML 1,000 ML IV PRN ×4 (13:24→23:42)
--- NOTE | 2017-01-30 14:27 | ER Document Report ---
ED General - General Chief Complaint: Blood Pressure Problem Stated Complaint: BLOOD PRESSURE CONCERNS Time Seen by Provider: 01/30/17 11:06 TRAVEL OUTSIDE OF THE [place] IN LAST 30 DAYS: No - HPI Patient complains to provider of: Hypotension Notes: Patient coming in for evaluation of hypotension. Patient has a history of cervical cancer has just finished up chemotherapy is currently undergoing radiation. Local oncologist is Dr. Russell. Patient also with recent admission for possible GI bleed however had a negative upper and lower GI scope performed. Patient otherwise has a history of anemia requiring multiple transfusions over the last few months. Patient states feeling weak and dizzy over the last 3 days denies any excessive nausea vomiting or diarrhea. Denies any new antibiotics or medication changes. Patient upon my evaluation is resting comfortably looks to be no obvious distress. Patient's blood pressure initially was 70 systolic. Patient denies any significant pain except for neck pain and back pain is been ongoing for greater than a week. Denies any trauma. - Related Data Allergies/Adverse Reactions: No Known Allergies Allergy (Verified 01/30/17 11:02) Past Medical History - Social History Smoking Status: Never Smoker Chew tobacco use (# tins/day): No Frequency of alcohol use: None Drug Abuse: None Family History: Reviewed & Not Pertinent - Past Medical History Cardiac Medical History: Reports: Hx Hypertension Denies: Hx Atrial Fibrillation, Hx Congestive Heart Failure, Hx Coronary Artery Disease, Hx DVT, Hx Heart Attack, Hx Hypercholesterolemia, Hx Pulmonary Embolism Pulmonary Medical History: Denies: Hx Asthma, Hx Bronchitis, Hx COPD, Hx Pneumonia, Hx Sleep Apnea Neurological Medical History: Denies: Hx Cerebrovascular Accident, Hx Seizures Endocrine Medical History: Denies: Hx Diabetes Mellitus Type 1, Hx Diabetes Mellitus Type 2, Hx Hyperthyroidism, Hx Hypothyroidism Renal/ Medical History: Denies: Hx Peritoneal Dialysis Malignancy Medical History: Reports: Hx Cervical Cancer - Uterine cancer GI Medical History: Denies: Hx Cirrhosis, Hx Gastroesophageal Reflux Disease, Hx Hepatitis Musculoskeltal Medical History: Reports Hx Arthritis Psychiatric Medical History: Reports: Hx Depression - History of Infectious Medical History: Denies: Hx Hepatitis Past Surgical History: Reports: Hx Abdominal Surgery - gastric bypass, hernia repair X2, Hx Cholecystectomy, Hx Gastric Bypass Surgery, Hx Herniorrhaphy - 2 , Hx Hysterectomy, Hx Neurologic Surgery - CARPAL TUNNEL, Other - Exploratory laparotomy for small bowel obstruction since gastric bypass - Immunizations Hx Diphtheria, Pertussis, Tetanus Vaccination: No Review of Systems - Review of Systems Constitutional: Other - Hypotension weakness EENT: No symptoms reported Cardiovascular: No symptoms reported Respiratory: No symptoms reported Gastrointestinal: No symptoms reported Genitourinary: No symptoms reported Female Genitourinary: No symptoms reported Musculoskeletal: No symptoms reported Skin: No symptoms reported Hematologic/Lymphatic: No symptoms reported Neurological/Psychological: No symptoms reported Physical Exam - Vital signs Vitals: Temp Pulse Resp BP Pulse Ox 98.3 F 88 14 68/35 L 100 01/30/17 11:04 01/30/17 11:04 01/30/17 11:04 01/30/17 11:04 01/30/17 11:04 Interpretation: Hypotensive - General General appearance: Appears well, Alert - HEENT Head: Normocephalic, Atraumatic Eyes: Normal Pupils: PERRL - Respiratory Respiratory status: No respiratory distress Chest status: Nontender Breath sounds: Normal Chest palpation: Normal - Cardiovascular Rhythm: Regular Heart sounds: Normal auscultation Murmur: No - Abdominal Inspection: Normal Distension: No distension Bowel sounds: Normal Tenderness: Nontender Organomegaly: No organomegaly - Back Back: Normal, Nontender - Extremities General upper extremity: Normal inspection, Nontender, Normal color, Normal ROM , Normal temperature General lower extremity: Normal inspection, Nontender, Normal color, Normal ROM , Normal temperature, Normal weight bearing. No: Robin's sign - Neurological Neuro grossly intact: Yes Cognition: Normal Orientation: AAOx4 Evans Coma Scale Eye Opening: Spontaneous Nasim Coma Scale Verbal: Oriented Nasim Coma Scale Motor: Obeys Commands Nasim Coma Scale Total: 15 Speech: Normal Motor strength normal: LUE, RUE, LLE, RLE Sensory: Normal - Psychological Associated symptoms: Normal affect, Normal mood - Skin Skin Temperature: Warm Skin Moisture: Dry Skin Color: Normal Course - Re-evaluation Re-evalutation: 01/30/17 14:50 Blood pressure has improved with IV bolus of fluids. Laboratory studies show no signs of anemia. A Huynh catheter was placed for strict DONG's with no urine return home placement. Due to new signs of renal failure with a creatinine of 5 CT scan was performed looking for obstruction which showed none did show a new mass in the retroperitoneal region consistent with more likely metastatic disease. I did discuss with the patient as far as her CODE STATUS. Patient states that she if anything bad were to happen her heart were to stop or she will stop breathing she would like to be made comfortable. Patient requests no intubation no CPR. Patient wishes to be a DNR. This was relayed to our hospitalist staff. Dr. Schneider agrees with admission. - Vital Signs Vital signs: Temp Pulse Resp BP Pulse Ox 98.3 F 88 18 98/48 L 92 01/30/17 11:04 01/30/17 11:04 01/30/17 14:01 01/30/17 14:01 01/30/17 13:31 - Laboratory Result Diagrams: 01/30/17 11:52 01/30/17 11:52 Laboratory results interpreted by me: 01/30/17 01/30/17 01/30/17 11:52 11:52 11:52 RBC 3.07 L Hgb 9.4 L Hct 26.8 L RDW 19.7 H Plt Count 136 L Seg Neutrophils % 79.3 H Lymphocytes % 5.2 L Eosinophils % 7.0 H Absolute Lymphocytes 0.3 L APTT 54.2 H VBG pH Sodium 134.5 L Carbon Dioxide 21 L BUN 38 H Creatinine 5.05 H Est GFR ( Amer) 11 L Est GFR (Non-Af Amer) 9 L Lactic Acid Direct Bilirubin 0.5 H Total Protein 5.9 L 01/30/17 01/30/17 11:52 11:52 RBC Hgb Hct RDW Plt Count Seg Neutrophils % Lymphocytes % Eosinophils % Absolute Lymphocytes APTT VBG pH 7.26 L Sodium Carbon Dioxide BUN Creatinine Est GFR ( Amer) Est GFR (Non-Af Amer) Lactic Acid 0.6 L Direct Bilirubin Total Protein Critical Care Note - Critical Care Note Total time excluding time spent on procedures (mins): 35 Comments: Multiple evaluations for hypotension. Discharge - Discharge Clinical Impression: DNR (do not resuscitate), New retroperitoneal mass Cervical cancer Qualifiers: Malignant neoplasm of cervix location: unspecified location Qualified Code(s): C53.9 - Malignant neoplasm of cervix uteri, unspecified ARF (acute renal failure) Qualifiers: Acute renal failure type: unspecified Qualified Code(s): N17.9 - Acute kidney failure, unspecified Hypotension Qualifiers: Hypotension type: unspecified hypotension type Qualified Code(s): I95.9 - Hypotension, unspecified Condition: Good Disposition: ADMITTED INPATIENT Admitting Provider: Domo Garciarivera Unit Admitted: IMCU Referrals: CYNTHIA WINTERS MD [Primary Care Provider] - Follow up as needed
--- NOTE | 2017-01-30 14:27 | RADIOLOGY REPORT (SQ) ---
EXAM DESCRIPTION: CT LTD RENAL STONE PROTOCOL ON COMPLETED DATE/TIME: 01/30/2017 2:13 pm REASON FOR STUDY: hx cervical ca new renal failure eval obstruction COMPARISON: 11/18/2016 TECHNIQUE: CT scan of the abdomen and pelvis performed without intravenous or oral contrast. Images reviewed with lung, soft tissue, and bone windows. Reconstructed coronal and sagittal MPR images revi ewed. All images stored on PACS. All CT scanners at this facility use dose modulation, iterative reconstruction, and/or weight based d osing when appropriate to reduce radiation dose to as low as reasonably achievable (ALARA). [facility]: Dose Right [facility]: CareDose [facility]: Dose Right [facility]: Teradose 4D [facility]: Smart ComCrowd RADIATION DOSE: Up-to-date CT equipment and radiation dose reduction techniques were employed. CTDIv ol: 11.3 mGy. DLP: 593 mGy-cm.mGy. LIMITATIONS: None. FINDINGS: LOWER CHEST: No significant findings. No nodules or infiltrates. NON-CONTRASTED LIVER, SPLEEN, ADRENALS: Evaluation limited by lack of IV contrast. No identified sign ificant masses. PANCREAS: No masses. No peripancreatic inflammatory changes. GALLBLADDER: No identified stones by CT criteria. No inflammatory changes to suggest cholecystitis. RIGHT KIDNEY AND URETER: No suspicious masses. Assessment limited by lack of IV contrast. No signif icant calcifications. No hydronephrosis or hydroureter. LEFT KIDNEY AND URETER: No suspicious masses. Assessment limited by lack of IV contrast. No signifi cant calcifications. No hydronephrosis or hydroureter. AORTA AND RETROPERITONEUM: No aneurysm. Retroperitoneal mass between the left common iliac artery an d ileus LS seen on series 3, image 49 and series 601, image 32 measuring 2.5 x 2.3 x 3.6 cm concernin g for metastatic disease given history of cervical cancer. BOWEL AND PERITONEAL CAVITY: No obvious masses or inflammatory changes. No free fluid. APPENDIX: Not visualized. PELVIS, BLADDER, AND ABDOMINAL WALL:No abnormal masses. No free fluid. Bladder normal. BONES: No significant findings. OTHER: No other significant finding. IMPRESSION: NO URINARY TRACT CALCULI OR HYDRONEPHROSIS. 3.6 CM RETROPERITONEAL MASS ABUTTING THE LEFT COMMON ILIAC ARTERY ABOVE CONCERNING FOR METASTATIC DISEASE GIVEN HISTORY OF CERVICAL CANCER. COMMENT: Quality ID # [id number]: Final reports with documentation of one or more dose reduction techniques (e.g., Automated exposure control, adjustment of the mA and/or kV according to patient size, use of iterative reconstruction technique) TECHNICAL DOCUMENTATION: JOB ID: [id number] [employer]- All Rights Reserved
[2017-01-30] MEDS ORDERED: ACETAMINOPHEN 325 MG TABLET PO ONE (14:39)
[2017-01-30 15:17] LABS: AMORPHOUS SEDIMENT,URINE 1+ /HPF; APPEARANCE,URINE TURBID; BILIRUBIN,URINE SMALL (NEGATIVE); GLUCOSE, URINE 50 mg/dL (NEGATIVE); KETONES,URINE NEGATIVE (NEGATIVE); LEUKOCYTE ESTERASE,URINE MODERATE (NEGATIVE); NITRITE,URINE NEGATIVE (NEGATIVE); PROTEIN,URINE 100 mg/dL (NEGATIVE); UROBILINOGEN,URINE NEGATIVE mg/dL (<2.0)
[2017-01-30] MEDS ORDERED: LEVALBUTEROL HCL NEB 1.25 MG/3 ML AMPUL NEB PRN (15:50)
[2017-01-30] MEDS ORDERED: ONDANSETRON HCL INJ/PF 4 MG/2 ML SDV IV PRN (15:56)
[2017-01-30] MEDS ORDERED: ACETAMINOPHEN 325 MG TABLET PO PRN ×2 (15:56→19:31)
[2017-01-30] MEDS ORDERED: DEXTROSE 5%-WATER 250 ML with NOREPINEPHRINE BITARTRATE 4 MG IV PRN ×2 (16:00)
[2017-01-30] MEDS ORDERED: IMIPENEM/CILASTATIN SODIUM INJ 500 MG VIAL IV SCH (16:00)
--- NOTE | 2017-01-30 16:15 | PDOC H&P ---
History of Present Illness Admission Date/PCP: 01/30/17 15:34 CYNTHIA WINTERS MD History of Present Illness: KSENIA BROWN is a 56 year old female coming in for evaluation of hypotension. Patient has a history of cervical cancer has just finished up chemotherapy is currently undergoing radiation. Patient also with recent admission for possible GI bleed however had a negative upper and lower GI scope performed. Patient otherwise has a history of anemia requiring multiple transfusions over the last few months. Patient states feeling weak and dizzy over the last 3 days denies any excessive nausea vomiting or diarrhea. Denies any new antibiotics or medication changes. Patient continues to take blood pressure medications up until Tuesday. She denies any definite chills or fever. No sinus congestion sore throat or chest congestion. No pleurisy as well. No dysuria urgency or frequency. Started feeling more lightheaded and dizzy today necessitating emergency room visit. She feels the same way when she was admitted last time only at that time her hemoglobin was low. Patient upon emergency room physicians evaluation is resting comfortably and no obvious distress. Patient's blood pressure initially was 70 systolic. Patient denies any significant pain except for neck pain and back pain is been ongoing for greater than a week. Denies any trauma. In the emergency room she was found to have a creatinine of that was elevated of which a few weeks ago it was normal. CT of the abdomen did not reveal hydronephrosis but did reveal new intraperitoneal mass suggestive of metastases. Patient was then referred for admission. Patient was given 2 L of normal saline boluses in the emergency room and remained hypotensive. Urinalysis reportedly abnormal. Past Medical History Cardiac Medical History: Reports: Hypertension Denies: Atrial Fibrillation, Congestive Heart Failure, Coronary Artery Disease, DVT, Myocardial Infarction, Hyperlipidema, Pulmonary Embolism Pulmonary Medical History: Denies: Asthma, Bronchitis, Chronic Obstructive Pulmonary Disease (COPD), Pneumonia, Sleep Apnea Neurological Medical History: Denies: Seizures Endocrine Medical History: Denies: Diabetes Mellitus Type 1, Diabetes Mellitus Type 2, Hyperthyroidism, Hypothyroidism Malignancy Medical History: Reports: Cervical Cancer - Uterine cancer GI Medical History: Denies: Cirrhosis, Gastroesophageal Reflux Disease, Hepatitis Musculoskeltal Medical History: Reports: Arthritis Psychiatric Medical History: Reports: Depression - History of Hematology: Denies: Anemia Past Surgical History Past Surgical History: Reports: Cholecystectomy, Gastric Bypass Surgery, Herniorrhaphy - 2, Hysterectomy, Other - Exploratory laparotomy for small bowel obstruction since gastric bypass Social History Information Source: Patient Smoking Status: Never Smoker Frequency of Alcohol Use: None Hx Recreational Drug Use: No Drugs: None Hx Prescription Drug Abuse: No Family History Family History: Hypertension Parental Family History Reviewed: Yes Children Family History Reviewed: Yes Sibling(s) Family History Reviewed.: Yes Medication/Allergy Home Medications: Escitalopram Oxalate [Lexapro 10 mg Tablet] 10 mg PO DAILY 01/24/17 Lisinopril [Prinivil 40 mg Tablet] 40 mg PO DAILY 01/24/17 Multivitamin/Iron/Folic Acid [Centrum Adults Tablet] 1 tab PO DAILY 01/24/17 Oxycodone HCl [Roxicodone] 5 mg PO Q6HP PRN 01/24/17 Tizanidine HCl [Zanaflex] 4 mg PO Q6HP PRN 01/24/17 Zolpidem Tartrate [Ambien] 10 mg PO HSP PRN 01/24/17 Allergies/Adverse Reactions: No Known Allergies Allergy (Verified 01/30/17 11:02) Review of Systems Constitutional: PRESENT: weakness - Generalized, weight loss - Unquantified. ABSENT: chills, fever(s), headache(s), weight gain Eyes: ABSENT: visual disturbances Ears: ABSENT: hearing changes Nose, Mouth, and Throat: PRESENT: vertigo. ABSENT: headache(s), mouth pain, sore throat Cardiovascular: PRESENT: dyspnea on exertion. ABSENT: chest pain, edema, orthropnea, palpitations Respiratory: PRESENT: cough - Occasional. ABSENT: dyspnea, hemoptysis, sputum Gastrointestinal: ABSENT: abdominal pain, coffee ground emesis, constipation, diarrhea, hematemesis, hematochezia, melena, nausea, vomiting Genitourinary: ABSENT: difficulty urinating, dysuria, hematuria Musculoskeletal: ABSENT: joint swelling Integumentary: ABSENT: pruritus, rash, wounds Neurological: PRESENT: dizziness. ABSENT: abnormal gait, abnormal speech, confusion, focal weakness, syncope Psychiatric: ABSENT: anxiety, depression, homidical ideation, suicidal ideation Endocrine: ABSENT: cold intolerance, heat intolerance, polydipsia, polyphagia - [id number], polyuria Hematologic/Lymphatic: ABSENT: easy bleeding, easy bruising Physical Exam Vital Signs: Temp Pulse Resp BP Pulse Ox 98.8 F 88 18 98/48 L 92 01/30/17 14:56 01/30/17 11:04 01/30/17 14:01 01/30/17 14:01 01/30/17 13:31 General appearance: PRESENT: no acute distress, cooperative, thin Head exam: PRESENT: atraumatic, normocephalic Eye exam: PRESENT: conjunctiva pale, EOMI, PERRLA. ABSENT: scleral icterus Ear exam: PRESENT: normal external ear exam. ABSENT: drainage Mouth exam: PRESENT: dry mucosa, neck supple, tongue midline Throat exam: ABSENT: post pharyngeal erythema, tonsillar erythema, tonsillar exudate Neck exam: ABSENT: carotid bruit, JVD, lymphadenopathy, meningismus, thyromegaly Respiratory exam: PRESENT: clear to auscultation kami, unlabored. ABSENT: rales , rhonchi, wheezes Cardiovascular exam: PRESENT: RRR. ABSENT: diastolic murmur, rubs, systolic murmur, tachycardia Pulses: PRESENT: normal dorsalis pedis pul Vascular exam: PRESENT: normal capillary refill GI/Abdominal exam: PRESENT: normal bowel sounds, soft. ABSENT: distended, guarding, mass, organolmegaly, rebound, tenderness Rectal exam: PRESENT: deferred Extremities exam: PRESENT: full ROM. ABSENT: calf tenderness, clubbing, pedal edema Neurological exam: PRESENT: alert, awake, oriented to person, oriented to place , oriented to time, oriented to situation Psychiatric exam: PRESENT: appropriate affect, normal mood. ABSENT: homicidal ideation, suicidal ideation Skin exam: PRESENT: dry, intact, warm. ABSENT: cyanosis, rash Results Impressions: Chest X-Ray 01/30/17 11:17 IMPRESSION: NO ACUTE RADIOGRAPHIC FINDING IN THE CHEST. NO SIGNIFICANT CHANGE FROM PRIOR STUDY. Limited or Localized CT 01/30/17 13:57 IMPRESSION: NO URINARY TRACT CALCULI OR HYDRONEPHROSIS. 3.6 CM RETROPERITONEAL MASS ABUTTING THE LEFT COMMON ILIAC ARTERY ABOVE CONCERNING FOR METASTATIC DISEASE GIVEN HISTORY OF CERVICAL CANCER. Assessment & Plan - Diagnosis (1) ARF (acute renal failure) Qualifiers: Acute renal failure type: unspecified Qualified Code(s): N17.9 - Acute kidney failure, unspecified Is this a current diagnosis for this admission?: Yes (2) Hypotension Qualifiers: Hypotension type: unspecified hypotension type Qualified Code(s): I95.9 - Hypotension, unspecified Is this a current diagnosis for this admission?: Yes (3) Abnormal urinalysis Is this a current diagnosis for this admission?: Yes (4) Thrombocytopenia Is this a current diagnosis for this admission?: Yes (5) Coagulopathy Is this a current diagnosis for this admission?: Yes (6) Primary cervical cancer with metastasis to other site Is this a current diagnosis for this admission?: Yes (7) Anemia Qualifiers: Anemia type: unspecified type Qualified Code(s): D64.9 - Anemia, unspecified Is this a current diagnosis for this admission?: Yes (8) HTN (hypertension) Qualifiers: Hypertension type: essential hypertension Qualified Code(s): I10 - Essential (primary) hypertension Is this a current diagnosis for this admission?: Yes - Time Time Spent: 50 to 70 Minutes - Inpatient Certification Based on my medical assessment, after consideration of the patient's comorbidities, presenting symptoms, or acuity I expect that the services needed warrant INPATIENT care.: Yes I certify that my determination is in accordance with my understanding of Medicare's requirements for reasonable and necessary INPATIENT services [42 CFR 412.3e].: Yes Medical Necessity: Significant Comorbidiites Make Outpatient Treatment Too Risky , Need Close Monitoring Due to Risk of Patient Decompensation, Need For IV Fluids, Need for IV Antibiotics, Risk of Diagnosis Which Will Require Inpatient Eval/Care/Monitoring Post Hospital Care: D/C [employer] Administrator Documentation - Plan Summary Plan Summary: The patient will be admitted to the intensive care unit. We will begin the patient on vasopressors. Continue normal hydration and follow creatinine. We will obtain a renal ultrasound. We will consult nephrology for further evaluation. We will likewise consult her oncologist for the metastatic disease. We will culture the urine and begin Primaxin. DVT prophylaxis with heparin will be placed. We will monitor platelet count. Further testing depends on the initial evaluation and per specialty recommendations as outlined above.
[2017-01-30] MEDS: IMIPENEM/CILASTATIN SODIUM 250 MG in NORMAL SALINE 100 ML IV SCH (17:26)
[2017-01-30] MEDS: DOCUSATE SODIUM 100 MG CAPSULE PO SCH (17:26)
[2017-01-30] MEDS ORDERED: MORPHINE SULFATE 10 MG/ML INJ IV PRN ×2 (19:33→22:37)
[2017-01-30] MEDS: HEPARIN SOD (PORCINE) 5,000 UNIT/ML 1 ML SYRINGE SUBCUT SCH (22:17)
[2017-01-31] MEDS: MORPHINE SULFATE 10 MG/ML INJ IV PRN ×8 (01:55→20:01)
[2017-01-31] MEDS: NORMAL SALINE 1000 ML 1,000 ML IV PRN ×3 (04:56→23:59)
[2017-01-31] MEDS: HEPARIN SOD (PORCINE) 5,000 UNIT/ML 1 ML SYRINGE SUBCUT SCH ×3 (05:02→22:03)
[2017-01-31] MEDS: LANSOPRAZOLE 30 MG TAB.RAP.DR PO SCH (05:03)
[2017-01-31] MEDS: IMIPENEM/CILASTATIN SODIUM 250 MG in NORMAL SALINE 100 ML IV SCH ×2 (05:03→18:26)
[2017-01-31 05:18] LABS: ABSOLUTE EOSINOPHILS # (AUTO) 0.3 10^3/uL (0.0-0.6); ABSOLUTE LYMPHOCYTES (AUTO) 0.2 10^3/uL (0.5-4.7); ABSOLUTE MONOCYTES (AUTO) 0.4 10^3/uL (0.1-1.4); ABSOLUTE NEUT (AUTO) 2.8 10^3/uL (1.7-8.2); BASOPHILS % (AUTO) 0.2 % (0-2); EOSINOPHILS % (AUTO) 8.1 % (0-6); HEMATOCRIT 24.6 % (36.0-47.0); HEMOGLOBIN 8.6 g/dL (12.0-15.5); HGB HCT DIFFERENCE 1.2; LYMPHOCYTES % (AUTO) 6.3 % (13-45); MEAN CORPUSCULAR HEMOGLOBIN 30.4 pg (27.0-33.4); MEAN CORPUSCULAR HGB CONC 34.8 g/dL (32.0-36.0); MEAN CORPUSCULAR VOLUME 87 fl (80-97); MONOCYTES % (AUTO) 11.6 % (3-13); RED BLOOD COUNT 2.81 10^6/uL (3.72-5.28); RED CELL DISTRIBUTION WIDTH 19.7 % (11.5-14.0); SEGMENTED NEUTROPHILS % (AUTO) 73.8 % (42-78); WHITE BLOOD COUNT 3.7 10^3/uL (4.0-10.5)
[2017-01-31 05:36] LABS: ALANINE AMINOTRANSFERASE 20 U/L (9-52); ALBUMIN 2.5 g/dL (3.5-5.0); ALKALINE PHOSPHATASE 73 U/L (38-126); ANION GAP 12 (5-19); ASPARTATE AMINO TRANSFERASE 14 U/L (14-36); BILIRUBIN,DIRECT 0.4 mg/dL (0.0-0.4); BILIRUBIN,TOTAL 0.4 mg/dL (0.2-1.3); BLOOD UREA NITROGEN 35 mg/dL (7-20); CARBON DIOXIDE 16 mmol/L (22-30); CHLORIDE 110 mmol/L (98-107); CREATININE RESULT 4.35 mg/dL (0.52-1.25); GLUCOSE 80 mg/dL (75-110); MAGNESIUM 1.6 mg/dL (1.6-2.3); PHOSPHORUS 6.2 mg/dL (2.5-4.5); POTASSIUM 4.2 mmol/L (3.6-5.0); SODIUM 137.5 mmol/L (137-145); TOTAL PROTEIN 4.9 g/dL (6.3-8.2)
--- NOTE | 2017-01-31 08:48 | PDOC PROGRESS REPORT ---
Subjective Progress Note for:: 01/31/17 Subjective:: Patient feeling better this morning. Denies any chills or fever. No PND orthopnea. No cough. Feeling slightly congested however. No nausea or vomiting. No chest pain, nor palpitation. Blood pressure has significantly improved. Physical Exam Vital Signs: Temp Pulse Resp BP Pulse Ox 98.1 F 86 14 91/56 L 99 01/31/17 06:00 01/31/17 02:00 01/31/17 06:21 01/31/17 06:21 01/31/17 06:21 Intake & Output 01/30/17 01/31/17 02/01/17 06:59 06:59 06:59 Intake Total 3180 Output Total 925 Balance 2255 Weight 74.2 kg General appearance: PRESENT: no acute distress, cooperative Head exam: PRESENT: normocephalic Eye exam: PRESENT: conjunctiva pale, EOMI Mouth exam: PRESENT: moist, neck supple Neck exam: ABSENT: JVD Respiratory exam: PRESENT: clear to auscultation kami. ABSENT: rhonchi, wheezes Cardiovascular exam: PRESENT: RRR, systolic murmur - Left sternal border GI/Abdominal exam: PRESENT: soft. ABSENT: distended, tenderness Extremities exam: PRESENT: other - Trace pretibial edema Neurological exam: PRESENT: alert, awake, oriented to situation Skin exam: PRESENT: dry, warm. ABSENT: cyanosis Results Laboratory Results: 01/31/17 04:56 01/31/17 04:56 01/31/17 01/31/17 01/31/17 04:56 04:56 04:56 WBC 3.7 L RBC 2.81 L Hgb 8.6 L Hct 24.6 L MCV 87 MCH 30.4 MCHC 34.8 RDW 19.7 H Plt Count 111 L Seg Neutrophils % 73.8 Lymphocytes % 6.3 L Monocytes % 11.6 Eosinophils % 8.1 H Basophils % 0.2 Absolute Neutrophils 2.8 Absolute Lymphocytes 0.2 L Absolute Monocytes 0.4 Absolute Eosinophils 0.3 Absolute Basophils 0.0 Sodium 137.5 Potassium 4.2 Chloride 110 H Carbon Dioxide 16 L Anion Gap 12 BUN 35 H Creatinine 4.35 H Est GFR ( Amer) 13 L Est GFR (Non-Af Amer) 10 L Glucose 80 Calcium 8.0 L Phosphorus 6.2 H Magnesium 1.6 Total Bilirubin 0.4 AST 14 ALT 20 Alkaline Phosphatase 73 Total Protein 4.9 L Albumin 2.5 L TSH 0.41 L Impressions: Chest X-Ray 01/30/17 11:17 IMPRESSION: NO ACUTE RADIOGRAPHIC FINDING IN THE CHEST. NO SIGNIFICANT CHANGE FROM PRIOR STUDY. Limited or Localized CT 01/30/17 13:57 IMPRESSION: NO URINARY TRACT CALCULI OR HYDRONEPHROSIS. 3.6 CM RETROPERITONEAL MASS ABUTTING THE LEFT COMMON ILIAC ARTERY ABOVE CONCERNING FOR METASTATIC DISEASE GIVEN HISTORY OF CERVICAL CANCER. Assessment & Plan - Diagnosis (1) ARF (acute renal failure) Qualifiers: Acute renal failure type: unspecified Qualified Code(s): N17.9 - Acute kidney failure, unspecified Is this a current diagnosis for this admission?: Yes (2) Hypotension Qualifiers: Hypotension type: unspecified hypotension type Qualified Code(s): I95.9 - Hypotension, unspecified Is this a current diagnosis for this admission?: Yes (3) Abnormal urinalysis Is this a current diagnosis for this admission?: Yes (4) Abnormal TSH Is this a current diagnosis for this admission?: Yes (5) Thrombocytopenia Is this a current diagnosis for this admission?: Yes (6) Coagulopathy Is this a current diagnosis for this admission?: Yes (7) Primary cervical cancer with metastasis to other site Is this a current diagnosis for this admission?: Yes (8) Anemia Qualifiers: Anemia type: unspecified type Qualified Code(s): D64.9 - Anemia, unspecified Is this a current diagnosis for this admission?: Yes (9) HTN (hypertension) Qualifiers: Hypertension type: essential hypertension Qualified Code(s): I10 - Essential (primary) hypertension Is this a current diagnosis for this admission?: Yes - Time Time Spent with patient: 25-34 minutes - Plan Summary Plan Summary: We will decrease intravenous fluids. Wean Levophed. Creatinine is improving. We will continue hydration. Monitor hemoglobin and transfuse if it falls below 8. Check free T4. Continue to hold antihypertensive medications. I have expressed to the patient that she probably does not need to take her medications for blood pressure and just monitor BP regularly. Continue antibiotics for now and the urine culture.
[2017-01-31] MEDS: DOCUSATE SODIUM 100 MG CAPSULE PO SCH ×2 (11:27→18:26)
[2017-01-31] MEDS: OXYCODONE HCL IR 5 MG TABLET PO PRN ×2 (15:35→22:02)
[2017-01-31] MEDS ORDERED: OXYCODONE HCL IR 5 MG TABLET PO PRN (18:00)
[2017-01-31] MEDS ORDERED: OXYCODONE HCL IR 5 MG TABLET PO SCH (18:00)
--- NOTE | 2017-01-31 18:53 | PDOC CONSULTATION ---
Consultation Consult Date: 01/31/17 Attending physician:: SHEMAR SCHNEIDER Consult reason:: I was asked by Dr. Schneider to see the patient because of acute kidney injury. History of Present Illness Admission Date/PCP: 01/30/17 15:50 CYNTHIA WINTERS MD History of Present Illness: KSENIA BROWN is a 56 year old female coming in for evaluation of hypotension. Patient has a history of cervical cancer has just finished up chemotherapy is currently undergoing radiation. Patient also with recent admission for possible GI bleed however had a negative upper and lower GI scope performed. Patient otherwise has a history of anemia requiring multiple transfusions over the last few months. Patient states feeling weak and dizzy over the last 3 days denies any excessive nausea, vomiting or diarrhea. Denies any new antibiotics or medication changes. Patient continues to take blood pressure medications up until Tuesday. She said she checks her blood pressure periodically and last week she was getting a blood pressure 140/90. She denies any definite chills or fever. No sinus congestion, sore throat or chest congestion. No pleurisy as well. No dysuria, urgency or frequency. Started feeling more lightheaded and dizzy today necessitating emergency room visit. She feels the same way when she was admitted last time only at that time her hemoglobin was low. Patient upon emergency room physicians evaluation is resting comfortably and no obvious distress. Patient's blood pressure initially was 70 systolic. Patient denies any significant pain except for neck pain and back pain is been ongoing for greater than a week. Denies any trauma. In the emergency room she was found to have a creatinine of that was elevated of which a few weeks ago it was normal. CT of the abdomen did not reveal hydronephrosis but did reveal new intraperitoneal mass suggestive of metastases. Patient was then referred for admission. Patient was given 2 L of normal saline boluses in the emergency room and remained hypotensive. Urinalysis reportedly abnormal. Upon admission the patient has a BUN of 38 and creatinine of 5.05 with estimated GFR of 9. On January 07 she had a BUN of 6 creatinine of 0.73 with estimated GFR greater than 60 which is virtually normal. She is was given a total of at least 4 L of IV fluids probably more at this point since the emergency room. Her blood pressure was also supported by pressor with Levoped. Her blood pressure is now improved and she is off the pressor. She is making urine. Patient said that she noted decreased urine output and difficulty in urinating 1 day prior to presentation. She did admit poor oral intake of both solids and liquids at least for the past week. Today the patient is a BUN of 35 and creatinine of 4.35 with estimated GFR of 10. Patient related that about years ago after a complicated gastric bypass in 2003 she had a possible acute kidney injury that time not requiring hemodialysis which eventually resolved. She denied any history of kidney stones, hepatitis, no nausea proteinuria or microhematuria. Currently the patient is awake and communicative. She is clinically improved today compared to yesterday and presentation. Past Medical History Cardiac Medical History: Reports: Hypertension-primary Neurological Medical History: Denies: Seizures Malignancy Medical History: Reports: Cervical Cancer - Uterine cancer Musculoskeltal Medical History: Reports: Arthritis Hematology Medical History: Reports Anemia Past Surgical History Past Surgical History: Reports: Cholecystectomy, Gastric Bypass Surgery, Herniorrhaphy - 2, Hysterectomy, Other - Exploratory laparotomy for small bowel obstruction since gastric bypass Social History Information Source: Patient Lives with: Spouse/Significant other Smoking Status: Never Smoker Frequency of Alcohol Use: None Hx Recreational Drug Use: No Drugs: None Hx Prescription Drug Abuse: No - Advance Directive Resuscitation Status: Do Not Resuscitate Family History Family History: Hypertension - Father, Malignancy - Multiple myeloma on her father Parental Family History Reviewed: Yes Children Family History Reviewed: Yes Sibling(s) Family History Reviewed.: Yes Medication/Allergy Home Medications: Escitalopram Oxalate [Lexapro 10 mg Tablet] 10 mg PO DAILY 01/24/17 Lisinopril [Prinivil 40 mg Tablet] 40 mg PO DAILY 01/24/17 Multivitamin/Iron/Folic Acid [Centrum Adults Tablet] 1 tab PO DAILY 01/24/17 Oxycodone HCl [Roxicodone] 5 mg PO Q6HP PRN 01/24/17 Tizanidine HCl [Zanaflex] 4 mg PO Q6HP PRN 01/24/17 Zolpidem Tartrate [Ambien] 10 mg PO HSP PRN 01/24/17 Allergies/Adverse Reactions: No Known Allergies Allergy (Verified 01/30/17 11:02) Review of Systems All systems: reviewed and no additional remarkable complaints except as stated Review of Systems: Constitutional: [ABSENT: chills, fever(s), headache(s), weight gain, weight loss ; admits generalized weakness] Eyes: [ABSENT: visual disturbances] Ears:[ ABSENT: hearing changes] Cardiovascular: [ABSENT: chest pain, dyspnea on exertion, edema, orthropnea, palpitations] Respiratory: [ABSENT: cough, dyspnea, hemoptysis] Gastrointestinal: [ABSENT: abdominal pain, constipation, diarrhea, hematemesis, hematochezia, nausea, vomiting] Genitourinary: [ABSENT: dysuria, hematuria] Musculoskeletal: [ABSENT: joint swelling; admits left lower back pain] Integumentary:[ ABSENT: rash, wounds] Neurological: [ABSENT: abnormal gait, abnormal speech, confusion, focal weakness , numbness, syncope; admits dizziness] Psychiatric: [ABSENT: anxiety, depression] Endocrine:[ ABSENT: cold intolerance, heat intolerance, polydipsia, polyuria] Hematologic/Lymphatic: [ABSENT: easy bleeding, easy bruising, lymphadenopathy] Physical Exam Vital Signs: Temp Pulse Resp BP Pulse Ox 98.0 F 81 12 106/60 99 01/31/17 16:00 01/31/17 12:30 01/31/17 18:21 01/31/17 18:21 01/31/17 18:21 Intake & Output 01/30/17 01/31/17 02/01/17 06:59 06:59 06:59 Intake Total 3180 240 Output Total 925 1775 Balance 2255 -1535 Weight 74.2 kg Exam: General appearance: no acute distress, cooperative, well-developed, well- nourished Head exam: PRESENT: atraumatic, normocephalic Eye exam: PRESENT: Conjunctiva pale, EOMI, PERRLA. ABSENT: conjunctival injection, scleral icterus Mouth exam: PRESENT: moist, neck supple, tongue midline Neck exam: PRESENT: full ROM. ABSENT: carotid bruit, JVD, lymphadenopathy, thyromegaly Respiratory exam: PRESENT: clear to auscultation bilaterally. ABSENT: rales, rhonchi, stridor, wheezes Cardiovascular exam: PRESENT: RRR, +S1, +S2. ABSENT: systolic murmur Pulses: PRESENT: normal radial pulses, normal dorsalis pedis pulses GI/Abdominal exam: PRESENT: normal bowel sounds, soft. ABSENT: guarding, mass, tenderness Rectal exam: deferred Extremities exam: PRESENT: full ROM. ABSENT: calf tenderness, pedal edema Musculoskeletal: PRESENT: full ROM. ABSENT: deformity Neurological exam: PRESENT: alert, Awake, Oriented to person, Oriented to place , Oriented to time, reflexes normal, CN II-XII grossly intact. ABSENT: motor sensory deficit Psychiatric exam: PRESENT: appropriate affect, normal mood. ABSENT: homicidal ideation, suicidal ideation Skin exam: PRESENT: intact, dry, warm. ABSENT: rash Results Laboratory Results: 01/31/17 04:56 01/31/17 04:56 01/31/17 01/31/17 01/31/17 04:56 04:56 04:56 WBC 3.7 L RBC 2.81 L Hgb 8.6 L Hct 24.6 L MCV 87 MCH 30.4 MCHC 34.8 RDW 19.7 H Plt Count 111 L Seg Neutrophils % 73.8 Lymphocytes % 6.3 L Monocytes % 11.6 Eosinophils % 8.1 H Basophils % 0.2 Absolute Neutrophils 2.8 Absolute Lymphocytes 0.2 L Absolute Monocytes 0.4 Absolute Eosinophils 0.3 Absolute Basophils 0.0 Sodium 137.5 Potassium 4.2 Chloride 110 H Carbon Dioxide 16 L Anion Gap 12 BUN 35 H Creatinine 4.35 H Est GFR ( Amer) 13 L Est GFR (Non-Af Amer) 10 L Glucose 80 Calcium 8.0 L Phosphorus 6.2 H Magnesium 1.6 Total Bilirubin 0.4 AST 14 ALT 20 Alkaline Phosphatase 73 Total Protein 4.9 L Albumin 2.5 L TSH 0.41 L Free T4 01/31/17 04:56 WBC RBC Hgb Hct MCV MCH MCHC RDW Plt Count Seg Neutrophils % Lymphocytes % Monocytes % Eosinophils % Basophils % Absolute Neutrophils Absolute Lymphocytes Absolute Monocytes Absolute Eosinophils Absolute Basophils Sodium Potassium Chloride Carbon Dioxide Anion Gap BUN Creatinine Est GFR ( Amer) Est GFR (Non-Af Amer) Glucose Calcium Phosphorus Magnesium Total Bilirubin AST ALT Alkaline Phosphatase Total Protein Albumin TSH Free T4 1.30 Impressions: Chest X-Ray 01/30/17 11:17 IMPRESSION: NO ACUTE RADIOGRAPHIC FINDING IN THE CHEST. NO SIGNIFICANT CHANGE FROM PRIOR STUDY. Limited or Localized CT 01/30/17 13:57 IMPRESSION: NO URINARY TRACT CALCULI OR HYDRONEPHROSIS. 3.6 CM RETROPERITONEAL MASS ABUTTING THE LEFT COMMON ILIAC ARTERY ABOVE CONCERNING FOR METASTATIC DISEASE GIVEN HISTORY OF CERVICAL CANCER. Assessment & Plan - Diagnosis (1) Acute kidney injury Is this a current diagnosis for this admission?: Yes Plan: Patient is nonoliguric with minimal proteinuria and microhematuria initial urinalysis. Patient has normal baseline kidney function a month ago. I think the acute worsening of kidney function is likely related to prerenal azotemia secondary to hypovolemic shock on presentation which may or may not have led to possible acute tubular necrosis. Patient responded very well with IV fluid hydration and improvement of blood pressure with pressors and is currently improving in terms of kidney function. Continue current management and maintain adequate intravascular volume. The patient does not need any renal replacement therapy acutely urgently. Continue to monitor kidney function and electrolytes. Avoid nephrotoxic agents. (2) Acute prerenal azotemia Is this a current diagnosis for this admission?: Yes (3) Hypovolemia dehydration Is this a current diagnosis for this admission?: Yes (4) Metabolic acidosis Is this a current diagnosis for this admission?: Yes Plan: Due to COURTNEY and IV fluid hydration. (5) Primary cervical cancer with metastasis to other site Is this a current diagnosis for this admission?: Yes (6) Thrombocytopenia Is this a current diagnosis for this admission?: Yes (7) Anemia Qualifiers: Anemia type: unspecified type Qualified Code(s): D64.9 - Anemia, unspecified Is this a current diagnosis for this admission?: Yes - Notes Notes: Discussed impression with the patient. Thank you very much for this consultation. - Time Time Spent: Greater than 70 Minutes
[2017-02-01] MEDS: LANSOPRAZOLE 30 MG TAB.RAP.DR PO SCH (05:08)
[2017-02-01] MEDS: MORPHINE SULFATE 10 MG/ML INJ IV PRN ×5 (05:09→22:33)
[2017-02-01] MEDS: HEPARIN SOD (PORCINE) 5,000 UNIT/ML 1 ML SYRINGE SUBCUT SCH (05:09)
[2017-02-01] MEDS: IMIPENEM/CILASTATIN SODIUM 250 MG in NORMAL SALINE 100 ML IV SCH (05:11)
[2017-02-01 05:14] LABS: HEMATOCRIT 23.6 % (36.0-47.0); HEMOGLOBIN 8.3 g/dL (12.0-15.5); HGB HCT DIFFERENCE 1.3; MEAN CORPUSCULAR HEMOGLOBIN 30.9 pg (27.0-33.4); MEAN CORPUSCULAR HGB CONC 35.3 g/dL (32.0-36.0); MEAN CORPUSCULAR VOLUME 87 fl (80-97)
[2017-02-01 05:28] LABS: WHITE BLOOD COUNT 2.2 10^3/uL (4.0-10.5)
[2017-02-01 05:29] LABS: ANION GAP 9 (5-19); BLOOD UREA NITROGEN 29 mg/dL (7-20); CALCIUM 8.4 mg/dL (8.4-10.2); CARBON DIOXIDE 18 mmol/L (22-30); CHLORIDE 112 mmol/L (98-107); CREATININE RESULT 2.04 mg/dL (0.52-1.25); GLUCOSE 73 mg/dL (75-110); POTASSIUM 4.1 mmol/L (3.6-5.0); SODIUM 138.8 mmol/L (137-145)
--- NOTE | 2017-02-01 08:14 | PDOC CONSULTATION ---
Consultation Consult Date: 02/01/17 Attending physician:: SHEMAR MENA Consult reason:: Hypotension, ARF, pelvic mass History of Present Illness Admission Date/PCP: 01/30/17 15:50 CYNTHIA WINTERS MD Patient complains of: Known history of uterine cancer status post 3 cycles of chemotherapy, here with hypertension, currently on radiation History of Present Illness: 56-year-old female with known history of Uterine cancer, she had surgery then 3 cycles of chemotherapy, her last cycle of chemotherapy was about 8-10 weeks ago , she has been getting pelvic radiation, has had about 2-1/2 weeks of that, still has 4 weeks of that pending. She comes in with hypotension, weakness, dehydration, creatinine on admission was in the 4 range, it is come down to the 2 range. She had a CT of the abdomen pelvis done stone protocol, and that apparently indicated retroperitoneal mass close to the left external iliac artery, and there is some compression that was concerning for hydronephrosis. Of note imaging done just 2 months earlier did not show this area of disease. I discussed her case with Dr. Jean, he will be reviewing the planning CT done in the radiation oncology department, and see if this area was concerning then. Past Medical History Cardiac Medical History: Reports: Hypertension Denies: Atrial Fibrillation, Congestive Heart Failure, Coronary Artery Disease, DVT, Myocardial Infarction, Hyperlipidema, Pulmonary Embolism Pulmonary Medical History: Denies: Asthma, Bronchitis, Chronic Obstructive Pulmonary Disease (COPD), Pneumonia, Sleep Apnea Neurological Medical History: Denies: Seizures Endocrine Medical History: Denies: Diabetes Mellitus Type 1, Diabetes Mellitus Type 2, Hyperthyroidism, Hypothyroidism Malignancy Medical History: Reports: Cervical Cancer - Uterine cancer GI Medical History: Denies: Cirrhosis, Gastroesophageal Reflux Disease, Hepatitis Musculoskeltal Medical History: Reports: Arthritis Psychiatric Medical History: Denies: Depression Hematology: Reports: Anemia Past Surgical History Past Surgical History: Reports: Cholecystectomy, Gastric Bypass Surgery, Herniorrhaphy - 2, Hysterectomy, Other - Exploratory laparotomy for small bowel obstruction since gastric bypass Social History Lives with: Spouse/Significant other Smoking Status: Never Smoker Frequency of Alcohol Use: None Hx Recreational Drug Use: No Drugs: None Hx Prescription Drug Abuse: No - Advance Directive Resuscitation Status: Do Not Resuscitate Family History Family History: Hypertension Parental Family History Reviewed: Yes Children Family History Reviewed: Yes Sibling(s) Family History Reviewed.: Yes Medication/Allergy Home Medications: Escitalopram Oxalate [Lexapro 10 mg Tablet] 10 mg PO DAILY 01/24/17 Lisinopril [Prinivil 40 mg Tablet] 40 mg PO DAILY 01/24/17 Multivitamin/Iron/Folic Acid [Centrum Adults Tablet] 1 tab PO DAILY 01/24/17 Oxycodone HCl [Roxicodone] 5 mg PO Q6HP PRN 01/24/17 Tizanidine HCl [Zanaflex] 4 mg PO Q6HP PRN 01/24/17 Zolpidem Tartrate [Ambien] 10 mg PO HSP PRN 01/24/17 Allergies/Adverse Reactions: No Known Allergies Allergy (Verified 01/30/17 11:02) Review of Systems Constitutional: ABSENT: chills, fever(s), headache(s), weight gain, weight loss Eyes: ABSENT: visual disturbances Ears: ABSENT: hearing changes Cardiovascular: ABSENT: chest pain, dyspnea on exertion, edema, orthropnea, palpitations Respiratory: ABSENT: cough, hemoptysis Gastrointestinal: ABSENT: abdominal pain, constipation, diarrhea, hematemesis, hematochezia, nausea, vomiting Genitourinary: ABSENT: dysuria, hematuria Musculoskeletal: ABSENT: joint swelling Integumentary: ABSENT: rash, wounds Neurological: ABSENT: abnormal gait, abnormal speech, confusion, dizziness, focal weakness, syncope Psychiatric: ABSENT: anxiety, depression, homidical ideation, suicidal ideation Endocrine: ABSENT: cold intolerance, heat intolerance, polydipsia, polyuria Hematologic/Lymphatic: ABSENT: easy bleeding, easy bruising Physical Exam Vital Signs: Temp Pulse Resp BP Pulse Ox 97.8 F 71 13 108/57 L 100 02/01/17 04:00 02/01/17 07:00 02/01/17 06:45 02/01/17 06:22 02/01/17 06:15 Intake & Output 01/31/17 02/01/17 02/02/17 06:59 06:59 06:59 Intake Total 3180 2845 Output Total 925 4375 Balance 2255 -1530 Weight 74.2 kg 77.1 kg General appearance: PRESENT: no acute distress, well-developed, well-nourished Head exam: PRESENT: atraumatic, normocephalic Eye exam: PRESENT: conjunctiva pink, EOMI, PERRLA. ABSENT: scleral icterus Ear exam: PRESENT: normal external ear exam Mouth exam: PRESENT: moist, tongue midline Neck exam: ABSENT: carotid bruit, JVD, lymphadenopathy, thyromegaly Respiratory exam: PRESENT: clear to auscultation kami. ABSENT: rales, rhonchi, wheezes Cardiovascular exam: PRESENT: RRR. ABSENT: diastolic murmur, rubs, systolic murmur Pulses: PRESENT: normal dorsalis pedis pul Vascular exam: PRESENT: normal capillary refill GI/Abdominal exam: PRESENT: normal bowel sounds, soft. ABSENT: distended, guarding, mass, organolmegaly, rebound, tenderness Rectal exam: PRESENT: deferred Extremities exam: PRESENT: full ROM. ABSENT: calf tenderness, clubbing, pedal edema Neurological exam: PRESENT: alert, awake, oriented to person, oriented to place , oriented to time, oriented to situation, CN II-XII grossly intact. ABSENT: motor sensory deficit Psychiatric exam: PRESENT: appropriate affect, normal mood. ABSENT: homicidal ideation, suicidal ideation Skin exam: PRESENT: dry, intact, warm. ABSENT: cyanosis, rash Results Laboratory Results: 02/01/17 05:00 02/01/17 05:00 01/31/17 02/01/17 02/01/17 04:56 05:00 05:00 WBC 2.2 L D RBC 2.70 L Hgb 8.3 L Hct 23.6 L MCV 87 MCH 30.9 MCHC 35.3 RDW 20.0 H Plt Count 102 L Sodium 138.8 Potassium 4.1 Chloride 112 H Carbon Dioxide 18 L Anion Gap 9 BUN 29 H Creatinine 2.04 H Est GFR ( Amer) 30 L Est GFR (Non-Af Amer) 25 L Glucose 73 L Calcium 8.4 Free T4 1.30 Impressions: Chest X-Ray 01/30/17 11:17 IMPRESSION: NO ACUTE RADIOGRAPHIC FINDING IN THE CHEST. NO SIGNIFICANT CHANGE FROM PRIOR STUDY. Limited or Localized CT 01/30/17 13:57 IMPRESSION: NO URINARY TRACT CALCULI OR HYDRONEPHROSIS. 3.6 CM RETROPERITONEAL MASS ABUTTING THE LEFT COMMON ILIAC ARTERY ABOVE CONCERNING FOR METASTATIC DISEASE GIVEN HISTORY OF CERVICAL CANCER. Assessment & Plan - Diagnosis (1) Cervical cancer Qualifiers: Malignant neoplasm of cervix location: endocervix Qualified Code(s): C53.9 - Malignant neoplasm of cervix uteri, unspecified Is this a current diagnosis for this admission?: Yes Plan: Unknown what that retroperitoneal mass really indicates, at this point we would await Dr. Jean's opinion on this, he will be able to look at the images tomorrow and give us idea of whether that was there on most recent imaging through the radiation oncology department. Otherwise, we would consider doing PET/CT as an outpatient, I would not work this up as an inpatient present. - Time Time Spent: Greater than 70 Minutes Critical Time spent with patient: 35 or more minutes
[2017-02-01] MEDS: DOCUSATE SODIUM 100 MG CAPSULE PO SCH ×2 (09:14→18:18)
[2017-02-01] MEDS: OXYCODONE HCL IR 5 MG TABLET PO PRN ×2 (11:31→20:14)
[2017-02-01] MEDS: NORMAL SALINE 1000 ML 1,000 ML IV PRN ×2 (11:32→20:14)
--- NOTE | 2017-02-01 12:19 | PDOC PROGRESS REPORT ---
Subjective Progress Note for:: 02/01/17 Subjective:: Denies any complaints today. Physical Exam Vital Signs: Temp Pulse Resp BP Pulse Ox 97.9 F 71 15 113/53 L 100 02/01/17 08:00 02/01/17 11:15 02/01/17 11:22 02/01/17 11:22 02/01/17 11:22 Intake & Output 01/31/17 02/01/17 02/02/17 06:59 06:59 06:59 Intake Total 3180 2845 240 Output Total 925 4375 775 Balance 9415 -4797 -562 Weight 74.2 kg 77.1 kg General appearance: PRESENT: no acute distress Eye exam: PRESENT: conjunctiva pink. ABSENT: scleral icterus Mouth exam: PRESENT: moist, tongue midline Neck exam: ABSENT: JVD Respiratory exam: PRESENT: clear to auscultation kami. ABSENT: rales, rhonchi, wheezes Cardiovascular exam: PRESENT: RRR, systolic murmur - 2/6 systolic murmur. ABSENT: diastolic murmur, rubs GI/Abdominal exam: PRESENT: normal bowel sounds, soft. ABSENT: distended, guarding, mass, organolmegaly, rebound, tenderness Extremities exam: ABSENT: calf tenderness, clubbing, pedal edema Neurological exam: PRESENT: alert, awake, oriented to person, oriented to place , oriented to time, oriented to situation, CN II-XII grossly intact. ABSENT: motor sensory deficit Psychiatric exam: PRESENT: appropriate affect Skin exam: PRESENT: dry, intact, warm. ABSENT: cyanosis, rash Results Laboratory Results: 02/01/17 05:00 02/01/17 05:00 02/01/17 02/01/17 05:00 05:00 WBC 2.2 L D RBC 2.70 L Hgb 8.3 L Hct 23.6 L MCV 87 MCH 30.9 MCHC 35.3 RDW 20.0 H Plt Count 102 L Sodium 138.8 Potassium 4.1 Chloride 112 H Carbon Dioxide 18 L Anion Gap 9 BUN 29 H Creatinine 2.04 H Est GFR ( Amer) 30 L Est GFR (Non-Af Amer) 25 L Glucose 73 L Calcium 8.4 Impressions: Chest X-Ray 01/30/17 11:17 IMPRESSION: NO ACUTE RADIOGRAPHIC FINDING IN THE CHEST. NO SIGNIFICANT CHANGE FROM PRIOR STUDY. Limited or Localized CT 01/30/17 13:57 IMPRESSION: NO URINARY TRACT CALCULI OR HYDRONEPHROSIS. 3.6 CM RETROPERITONEAL MASS ABUTTING THE LEFT COMMON ILIAC ARTERY ABOVE CONCERNING FOR METASTATIC DISEASE GIVEN HISTORY OF CERVICAL CANCER. Assessment & Plan - Diagnosis (1) ARF (acute renal failure) Qualifiers: Acute renal failure type: unspecified Qualified Code(s): N17.9 - Acute kidney failure, unspecified Is this a current diagnosis for this admission?: Yes Plan: Patient's creatinine has improved with IV fluids. (2) Abnormal TSH Is this a current diagnosis for this admission?: Yes Plan: The patient's TSH is low however her free T4 is normal. Will monitor for now. (3) Cervical cancer Qualifiers: Malignant neoplasm of cervix location: endocervix Qualified Code(s): C53.9 - Malignant neoplasm of cervix uteri, unspecified Is this a current diagnosis for this admission?: Yes Plan: Patient is being followed by oncology. (4) Hypotension Qualifiers: Hypotension type: unspecified hypotension type Qualified Code(s): I95.9 - Hypotension, unspecified Is this a current diagnosis for this admission?: Yes Plan: This has resolved with IV fluids. (5) Primary cervical cancer with metastasis to other site Is this a current diagnosis for this admission?: Yes (6) Urinary tract infection Qualifiers: Urinary tract infection type: site unspecified Is this a current diagnosis for this admission?: Yes Plan: Cultures are negative so far. We will continue with the imipenem. (7) HTN (hypertension) Qualifiers: Hypertension type: essential hypertension Qualified Code(s): I10 - Essential (primary) hypertension Is this a current diagnosis for this admission?: Yes Plan: We will hold antihypertensives as her blood pressure has been on the low normal side. (8) DNR (do not resuscitate) Is this a current diagnosis for this admission?: Yes - Time Time Spent with patient: 25-34 minutes - Inpatient Certification Medical Necessity: Need For IV Fluids, Need for IV Antibiotics - Plan Summary Plan Summary: We will transfer out of the ICU to the floor today.
--- NOTE | 2017-02-01 16:11 | PDOC PROGRESS REPORT ---
Subjective Progress Note for:: 02/01/17 Subjective:: Patient continues to do well. She is is still off the pressors and only receiving IV fluids. She is feeling much better and regaining her strength back slowly. She is making good amount of urine output. She is still not eating very well though. No other new complaints Physical Exam Vital Signs: Temp Pulse Resp BP Pulse Ox 98.1 F 78 14 114/62 98 02/01/17 12:00 02/01/17 12:00 02/01/17 14:22 02/01/17 14:22 02/01/17 14:22 Intake & Output 01/31/17 02/01/17 02/02/17 06:59 06:59 06:59 Intake Total 3180 2845 240 Output Total 925 4375 775 Balance 9175 -1714 -999 Weight 74.2 kg 77.1 kg Exam: General appearance: PRESENT: no acute distress, cooperative, well-developed, well-nourished Head exam: PRESENT: atraumatic, normocephalic Eye exam: PRESENT: conjunctiva pale, PERRLA. ABSENT: scleral icterus Neck exam: ABSENT: JVD Respiratory exam: PRESENT: Diminished breath sounds. ABSENT: crackles, rales, rhonchi, unlabored, wheezes Cardiovascular exam: PRESENT: Regular rate rhythm -+S1, +S2. Grade 1/6 to 2/6 systolic murmur ABSENT: diastolic murmur GI/Abdominal exam: PRESENT: normal bowel sounds, soft. ABSENT: guarding, mass, tenderness Extremities exam: ABSENT: No edema Neurological exam: PRESENT: alert, awake, oriented to person, place and time. Skin exam: PRESENT: dry, warm, Results Laboratory Results: 02/01/17 05:00 02/01/17 05:00 02/01/17 02/01/17 05:00 05:00 WBC 2.2 L D RBC 2.70 L Hgb 8.3 L Hct 23.6 L MCV 87 MCH 30.9 MCHC 35.3 RDW 20.0 H Plt Count 102 L Sodium 138.8 Potassium 4.1 Chloride 112 H Carbon Dioxide 18 L Anion Gap 9 BUN 29 H Creatinine 2.04 H Est GFR ( Amer) 30 L Est GFR (Non-Af Amer) 25 L Glucose 73 L Calcium 8.4 Impressions: Chest X-Ray 01/30/17 11:17 IMPRESSION: NO ACUTE RADIOGRAPHIC FINDING IN THE CHEST. NO SIGNIFICANT CHANGE FROM PRIOR STUDY. Limited or Localized CT 01/30/17 13:57 IMPRESSION: NO URINARY TRACT CALCULI OR HYDRONEPHROSIS. 3.6 CM RETROPERITONEAL MASS ABUTTING THE LEFT COMMON ILIAC ARTERY ABOVE CONCERNING FOR METASTATIC DISEASE GIVEN HISTORY OF CERVICAL CANCER. Assessment & Plan - Diagnosis (1) Acute kidney injury Is this a current diagnosis for this admission?: Yes Plan: Patient is nonoliguric with minimal proteinuria and microhematuria initial urinalysis. Patient has normal baseline kidney function a month ago. I think the acute worsening of kidney function is likely related to prerenal azotemia secondary to hypovolemic shock on presentation which may or may not have led to possible acute tubular necrosis. Patient responded very well with IV fluid hydration and improvement of blood pressure with pressors and is currently improving in terms of kidney function. Continue current management and maintain adequate intravascular volume. The patient does not need any renal replacement therapy acutely urgently. Continue to monitor kidney function and electrolytes. Avoid nephrotoxic agents. (2) Acute prerenal azotemia Is this a current diagnosis for this admission?: Yes (3) Hypovolemia dehydration Is this a current diagnosis for this admission?: Yes (4) Metabolic acidosis Is this a current diagnosis for this admission?: Yes Plan: Due to COURTNEY and IV fluid hydration. Improving. (5) Primary cervical cancer with metastasis to other site Is this a current diagnosis for this admission?: Yes (6) Thrombocytopenia Is this a current diagnosis for this admission?: Yes (7) Anemia Qualifiers: Anemia type: unspecified type Qualified Code(s): D64.9 - Anemia, unspecified Is this a current diagnosis for this admission?: Yes - Time Time with patient: 15-25 minutes
[2017-02-01] MEDS: CEFUROXIME 500 MG TABLET PO SCH (22:28)
[2017-02-02] MEDS: MORPHINE SULFATE 10 MG/ML INJ IV PRN (03:41)
[2017-02-02] MEDS: LANSOPRAZOLE 30 MG TAB.RAP.DR PO SCH (05:14)
[2017-02-02 05:29] LABS: HEMATOCRIT 24.2 % (36.0-47.0); HEMOGLOBIN 8.5 g/dL (12.0-15.5); HGB HCT DIFFERENCE 1.3; MEAN CORPUSCULAR HEMOGLOBIN 30.5 pg (27.0-33.4); MEAN CORPUSCULAR HGB CONC 35.2 g/dL (32.0-36.0); MEAN CORPUSCULAR VOLUME 87 fl (80-97); RED BLOOD COUNT 2.79 10^6/uL (3.72-5.28); RED CELL DISTRIBUTION WIDTH 19.6 % (11.5-14.0); WHITE BLOOD COUNT 2.1 10^3/uL (4.0-10.5)
[2017-02-02 05:32] LABS: ANION GAP 7 (5-19); BLOOD UREA NITROGEN 21 mg/dL (7-20); CALCIUM 8.4 mg/dL (8.4-10.2); CARBON DIOXIDE 21 mmol/L (22-30); CHLORIDE 117 mmol/L (98-107); CREATININE RESULT 1.16 mg/dL (0.52-1.25); GLUCOSE 76 mg/dL (75-110); POTASSIUM 3.8 mmol/L (3.6-5.0); SODIUM 145.4 mmol/L (137-145)
[2017-02-02 05:52] LABS: BASOPHILS % (MANUAL) 1 % (0-2); EOSINOPHILS % (MANUAL) 21 % (0-6); LYMPHOCYTES % (MANUAL) 8 % (13-45); TOTAL CELLS COUNTED 100
[2017-02-02 05:55] LABS: ANISOCYTOSIS 2+; POIKILOCYTOSIS SLIGHT
--- NOTE | 2017-02-02 08:21 | PDOC PROGRESS REPORT ---
Subjective Progress Note for:: 02/02/17 Subjective:: no acute events overnight, patient is doing better today Physical Exam Vital Signs: Temp Pulse Resp BP Pulse Ox 97.8 F 75 13 134/65 H 99 02/02/17 04:00 02/01/17 20:25 02/02/17 06:15 02/02/17 05:52 02/01/17 20:25 Intake & Output 02/01/17 02/02/17 02/03/17 06:59 06:59 06:59 Intake Total 2845 2862 Output Total 4375 2035 Balance -1530 -553 Weight 77.1 kg 80.5 kg General appearance: PRESENT: no acute distress, well-developed, well-nourished Head exam: PRESENT: atraumatic, normocephalic Eye exam: PRESENT: conjunctiva pink, EOMI, PERRLA. ABSENT: scleral icterus Ear exam: PRESENT: normal external ear exam Mouth exam: PRESENT: moist, tongue midline Neck exam: ABSENT: carotid bruit, JVD, lymphadenopathy, thyromegaly Respiratory exam: PRESENT: clear to auscultation kami. ABSENT: rales, rhonchi, wheezes Cardiovascular exam: PRESENT: RRR. ABSENT: diastolic murmur, rubs, systolic murmur Pulses: PRESENT: normal dorsalis pedis pul Vascular exam: PRESENT: normal capillary refill GI/Abdominal exam: PRESENT: normal bowel sounds, soft. ABSENT: distended, guarding, mass, organolmegaly, rebound, tenderness Rectal exam: PRESENT: deferred Extremities exam: PRESENT: full ROM. ABSENT: calf tenderness, clubbing, pedal edema Neurological exam: PRESENT: alert, awake, oriented to person, oriented to place , oriented to time, oriented to situation, CN II-XII grossly intact. ABSENT: motor sensory deficit Psychiatric exam: PRESENT: appropriate affect, normal mood. ABSENT: homicidal ideation, suicidal ideation Skin exam: PRESENT: dry, intact, warm. ABSENT: cyanosis, rash Results Laboratory Results: 02/02/17 05:05 02/02/17 05:05 02/02/17 02/02/17 05:05 05:05 WBC 2.1 L RBC 2.79 L Hgb 8.5 L Hct 24.2 L MCV 87 MCH 30.5 MCHC 35.2 RDW 19.6 H Plt Count 108 L Seg Neutrophils % Not Reportable Lymphocytes % Not Reportable Monocytes % Not Reportable Eosinophils % Not Reportable Basophils % Not Reportable Absolute Neutrophils Not Reportable Absolute Lymphocytes Not Reportable Absolute Monocytes Not Reportable Absolute Eosinophils Not Reportable Absolute Basophils Not Reportable Sodium 145.4 H Potassium 3.8 Chloride 117 H Carbon Dioxide 21 L Anion Gap 7 BUN 21 H Creatinine 1.16 Est GFR ( Amer) 58 L Est GFR (Non-Af Amer) 48 L Glucose 76 Calcium 8.4 Impressions: Chest X-Ray 01/30/17 11:17 IMPRESSION: NO ACUTE RADIOGRAPHIC FINDING IN THE CHEST. NO SIGNIFICANT CHANGE FROM PRIOR STUDY. Limited or Localized CT 01/30/17 13:57 IMPRESSION: NO URINARY TRACT CALCULI OR HYDRONEPHROSIS. 3.6 CM RETROPERITONEAL MASS ABUTTING THE LEFT COMMON ILIAC ARTERY ABOVE CONCERNING FOR METASTATIC DISEASE GIVEN HISTORY OF CERVICAL CANCER. Assessment & Plan - Diagnosis (1) Cervical cancer Qualifiers: Malignant neoplasm of cervix location: endocervix Qualified Code(s): C53.9 - Malignant neoplasm of cervix uteri, unspecified Is this a current diagnosis for this admission?: Yes Plan: Probable discharge today, will follow up patient is outpatient and decide on next steps of care.
[2017-02-02] MEDS: DOCUSATE SODIUM 100 MG CAPSULE PO SCH (09:09)
[2017-02-02] MEDS: CEFUROXIME 500 MG TABLET PO SCH (09:09)
[2017-02-02 09:28] VITALS: BP 121/55
--- NOTE | 2017-02-02 15:09 | PDOC DISCHARGE SUMMARY ---
General - Admit/Disc Date/PCP Admission Date/Primary Care Provider: 01/30/17 15:50 CYNTHIA WINTERS MD Discharge Date: 02/02/17 - Discharge Diagnosis (1) Hypotension Is this a current diagnosis for this admission?: Yes Summary: Secondary to acute renal failure. This has resolved. (2) ARF (acute renal failure) Is this a current diagnosis for this admission?: Yes Summary: Resolved (3) Abnormal TSH Is this a current diagnosis for this admission?: Yes Summary: Low TSH but normal T4. No intervention done at this time. (4) Cervical cancer Is this a current diagnosis for this admission?: Yes Summary: Patient had a CT that showed a possible new retroperitoneal mass. (5) Primary cervical cancer with metastasis to other site Is this a current diagnosis for this admission?: Yes (6) Urinary tract infection Is this a current diagnosis for this admission?: Yes Summary: Patient was treated empirically for possible urinary tract infection. Cultures have been negative. Will be sent home with a course of Ceftin. (7) HTN (hypertension) Is this a current diagnosis for this admission?: Yes (8) DNR (do not resuscitate) Is this a current diagnosis for this admission?: Yes - Additional Information Resuscitation Status: Do Not Resuscitate Discharge Diet: Cardiac Discharge Activity: Activity As Tolerated Home Medications: Escitalopram Oxalate [Lexapro 10 mg Tablet] 10 mg PO DAILY 02/01/17 Multivitamin/Iron/Folic Acid [Centrum Adults Tablet] 1 tab PO DAILY 02/01/17 Ondansetron HCl [Zofran 8 mg Tablet] 8 mg PO Q8HP PRN 02/01/17 Oxycodone HCl [Roxicodone] 5 mg PO Q6HP PRN 02/01/17 Tizanidine HCl [Zanaflex 4 mg Tablet] 4 mg PO Q6HP PRN 02/01/17 Zolpidem Tartrate [Ambien] 10 mg PO HSP PRN 02/01/17 Cefuroxime Axetil [Ceftin 500 mg Tablet] 500 mg PO Q12 #14 tablet 02/02/17 History of Present Illness History of Present Illness: KSENIA BROWN is a 56 year old female who has cervical cancer and just recently finished chemotherapy and has been currently getting radiation. The patient also had a recent GI bleed and had a negative upper and lower endoscopy. Patient reports that over the last 3 days prior to admission she is having problems with feeling weak and dizzy. The patient denies any new medications. Patient felt lightheaded and went she presented to emergency room was found to have a systolic blood pressure of 70. Patient has had problems with decreased p.o. intake. Patient in the emergency room had a CT scan which showed a new retroperitoneal mass possibly met metastatic disease. Patient was given saline in the emergency room and continued to have hypotension and was admitted to the intensive care unit. Hospital Course Hospital Course: 56-year-old female who presented with fatigue, weak and dizzy. Patient was found to be hypotensive with systolic blood pressure in the 70s. Patient received IV fluids with improvement in her blood pressures. The patient was started on antibiotics empirically for the possibility of there being infection as the cause. Patient was noted to be in acute renal failure. Her renal failure resolved with IV fluids. All of her cultures have been negative. The patient had improvement and it was felt that her hypotension was secondary to decreased p.o. intake. The possibility of urinary tract infection being the cause of infections was also considered. Her empiric antibiotics were continued however given that her cultures were negative, it is unclear as to whether it was truly infection or not. Patient complete a course of Ceftin orally. Patient was evaluated by oncology because of her history of cervical cancer for which she has been getting treatment. Patient had a CT scan that showed a retroperitoneal mass that was new. Her oncologist will follow up with her as an outpatient to see whether or not any further workup of that needs to be done. She also was evaluated by nephrology while hospitalized. Physical Exam Vital Signs: Temp Pulse Resp BP Pulse Ox 98.0 F 75 13 121/55 L 99 02/02/17 09:22 02/02/17 09:22 02/02/17 09:22 02/02/17 09:22 02/02/17 09:22 Intake & Output 02/01/17 02/02/17 02/03/17 06:59 06:59 06:59 Intake Total 2845 2862 300 Output Total 1852 7132 730 Balance -1530 -553 -430 Weight 77.1 kg 80.5 kg General appearance: PRESENT: no acute distress Eye exam: PRESENT: conjunctiva pink. ABSENT: scleral icterus Mouth exam: PRESENT: moist, tongue midline Neck exam: ABSENT: JVD Respiratory exam: PRESENT: clear to auscultation kami. ABSENT: rales, rhonchi, wheezes Cardiovascular exam: PRESENT: RRR. ABSENT: diastolic murmur, rubs, systolic murmur GI/Abdominal exam: PRESENT: normal bowel sounds, soft. ABSENT: distended, guarding, mass, organolmegaly, rebound, tenderness Extremities exam: ABSENT: calf tenderness, clubbing, pedal edema Neurological exam: PRESENT: alert, awake, oriented to person, oriented to place , oriented to time, oriented to situation, CN II-XII grossly intact. ABSENT: motor sensory deficit Psychiatric exam: PRESENT: appropriate affect Skin exam: PRESENT: dry, intact, warm. ABSENT: cyanosis, rash Results Laboratory Results: 02/02/17 05:05 02/02/17 05:05 02/02/17 02/02/17 05:05 05:05 WBC 2.1 L RBC 2.79 L Hgb 8.5 L Hct 24.2 L MCV 87 MCH 30.5 MCHC 35.2 RDW 19.6 H Plt Count 108 L Seg Neutrophils % Not Reportable Lymphocytes % Not Reportable Monocytes % Not Reportable Eosinophils % Not Reportable Basophils % Not Reportable Absolute Neutrophils Not Reportable Absolute Lymphocytes Not Reportable Absolute Monocytes Not Reportable Absolute Eosinophils Not Reportable Absolute Basophils Not Reportable Sodium 145.4 H Potassium 3.8 Chloride 117 H Carbon Dioxide 21 L Anion Gap 7 BUN 21 H Creatinine 1.16 Est GFR ( Amer) 58 L Est GFR (Non-Af Amer) 48 L Glucose 76 Calcium 8.4 Impressions: Chest X-Ray 01/30/17 11:17 IMPRESSION: NO ACUTE RADIOGRAPHIC FINDING IN THE CHEST. NO SIGNIFICANT CHANGE FROM PRIOR STUDY. Limited or Localized CT 01/30/17 13:57 IMPRESSION: NO URINARY TRACT CALCULI OR HYDRONEPHROSIS. 3.6 CM RETROPERITONEAL MASS ABUTTING THE LEFT COMMON ILIAC ARTERY ABOVE CONCERNING FOR METASTATIC DISEASE GIVEN HISTORY OF CERVICAL CANCER. Qualifiers PATEINT BEING DISCHARGED WITH ANY OF THE FOLLOWING DIAGNOSIS?: No Plan Discharge Plan: Patient is discharged to home. Patient will follow up with her primary care and her oncologist in 1-2 weeks. Time Spent: Greater than 30 Minutes
== END 2017-02-02 10:18 | disposition home or self-care (01) | DRG 682 ==
LOC: ER 10:54 → UNDOADMIN 15:34 → EH 15:34 → ICU 17:00
DX: N17.9 Acute kidney failure, unspecified (principal); D61.810 Antineoplastic chemotherapy induced pancytopenia; R57.1 Hypovolemic shock; Z66 Do not resuscitate; N39.0 Urinary tract infection, site not specified; C79.9 Secondary malignant neoplasm of unspecified site; E87.2 Acidosis; C53.9 Malignant neoplasm of cervix uteri, unspecified; I95.9 Hypotension, unspecified; D69.6 Thrombocytopenia, unspecified; D64.9 Anemia, unspecified; I10 Essential (primary) hypertension; R94.6 Abnormal results of thyroid function studies; R19.09 Other intra-abdominal and pelvic swelling, mass and lump; T45.1X5A Adverse effect of antineoplastic and immunosuppressive drugs, initial encounter; Z98.84 Bariatric surgery status
CPT/HCPCS: 36415; 71010; 76380; 80048; 80053; 80076; 81001; 82803; 83605; 83690; 83735; 84100; 84439; 84443; 85025; 85027; 85610; 85730; 86850; 86870; 86900; 86901; 87040; 87086; 96360; 96361; 99285; J0743; J1644; J2270; J3490; J7030; J7060

== ENCOUNTER 2017-03-01 14:52 | Emergency (ER) | payer MEDICARE ==
[2017-03-01] MEDS ORDERED: NORMAL SALINE 1000 ML 250 ML IV ONE (15:15)
[2017-03-01] MEDS ORDERED: ONDANSETRON HCL INJ/PF 4 MG/2 ML SDV IV ONE (15:15)
--- NOTE | 2017-03-01 15:30 | ER Document Report ---
ED General - General Mode of Arrival: Ambulatory Information source: Patient TRAVEL OUTSIDE OF THE [place] IN LAST 30 DAYS: No - HPI Onset: This morning <GELY PARISI - Last Filed: 03/01/17 15:33> <WILLIAM REECE - Last Filed: 03/01/17 18:22> - General Chief Complaint: Abnormal Lab Results Stated Complaint: FEVER, DEHYDRATED Time Seen by Provider: 03/01/17 15:06 Notes: Patient is a 56 year old female with a history of Stage 3 Cervical Cancer presents to the emergency department with cough and fever onset today. Patient states that she was at her routine check up with her PCP Dr. Alexandra, when they noticed she had a fever of 101.4 and abnormal blood count. Patient states she has also been nauseous. Patient denies any vomiting. (GELY PARISI) - Related Data Allergies/Adverse Reactions: No Known Allergies Allergy (Verified 03/01/17 14:55) Past Medical History - General Information source: Patient - Social History Smoking Status: Never Smoker Cigarette use (# per day): No Chew tobacco use (# tins/day): No Smoking Education Provided: No Frequency of alcohol use: None Drug Abuse: None Family History: Hypertension Patient has suicidal ideation: No Patient has homicidal ideation: No - Past Medical History Cardiac Medical History: Reports: Hx Hypertension Malignancy Medical History: Reports: Hx Cervical Cancer - Uterine cancer Musculoskeltal Medical History: Reports Hx Arthritis Past Surgical History: Reports: Hx Abdominal Surgery - gastric bypass, hernia repair X2, Hx Cholecystectomy, Hx Gastric Bypass Surgery, Hx Herniorrhaphy - 2 , Hx Hysterectomy, Hx Neurologic Surgery - CARPAL TUNNEL, Other - Exploratory laparotomy for small bowel obstruction since gastric bypass - Immunizations Hx Diphtheria, Pertussis, Tetanus Vaccination: No <GELY PARISI - Last Filed: 03/01/17 15:33> Review of Systems - Review of Systems Constitutional: No symptoms reported EENT: No symptoms reported Cardiovascular: No symptoms reported Respiratory: See HPI, Cough Gastrointestinal: See HPI, Nausea. denies: Vomiting Genitourinary: No symptoms reported Female Genitourinary: No symptoms reported Musculoskeletal: No symptoms reported Skin: No symptoms reported Hematologic/Lymphatic: See HPI, Other - abnormal blood count Neurological/Psychological: No symptoms reported -: Yes All other systems reviewed and negative <GELY PARISI - Last Filed: 03/01/17 15:33> Physical Exam - General General appearance: Appears well, Alert In distress: None - HEENT Head: Normocephalic, Atraumatic Eyes: Normal Conjunctiva: Normal Pupils: PERRL - Respiratory Respiratory status: No respiratory distress Chest status: Nontender Breath sounds: Nonproductive cough - harsh - Cardiovascular Rhythm: Regular Heart sounds: Normal auscultation - Abdominal Inspection: Normal Distension: No distension Bowel sounds: Normal Tenderness: Nontender Organomegaly: No organomegaly - Back Back: Normal - Extremities General upper extremity: Normal inspection, Normal ROM General lower extremity: Normal inspection, Normal ROM - Neurological Neuro grossly intact: Yes Cognition: Normal Orientation: AAOx4 [place] Coma Scale Eye Opening: Spontaneous [place] Coma Scale Verbal: Oriented Nasim Coma Scale Motor: Obeys Commands Nasim Coma Scale Total: 15 Speech: Normal - Psychological Associated symptoms: Normal affect, Normal mood - Skin Skin Temperature: Warm Skin Moisture: Dry Skin Color: Normal <GELY PARISI - Last Filed: 03/01/17 15:33> - Vital signs Vitals: Temp Pulse Resp BP Pulse Ox 98.9 F 106 H 18 152/84 H 98 03/01/17 14:55 03/01/17 14:55 03/01/17 14:55 03/01/17 14:55 03/01/17 14:55 Course - Laboratory Result Diagrams: 03/01/17 15:40 03/01/17 15:40 - Diagnostic Test Radiology reviewed: Image reviewed, Reports reviewed - Chest x-ray does not show any acute process. - EKG Interpretation by Ar EKG shows normal: Sinus rhythm, Jenkins, Intervals, QRS Complexes, ST-T Waves Rate: Tachycardia - 100 Voltage: Consistant with LVH When compared to previous EKG there are: No significant change - Consults Dr. Alexandra Consulted provider: follow-up in office - We will treat possible urinary tract infection with antibiotics, follow-up in the office tomorrow to follow urine culture. <WILLIAM REECE - Last Filed: 03/01/17 18:22> - Vital Signs Vital signs: Temp Pulse Resp BP Pulse Ox 98.9 F 106 H 17 141/71 H 94 03/01/17 14:55 03/01/17 14:55 03/01/17 17:21 03/01/17 17:21 03/01/17 17:21 - Laboratory Laboratory results interpreted by me: 03/01/17 03/01/17 03/01/17 15:40 15:40 16:56 WBC 11.6 H RBC 3.31 L Hgb 10.4 L Hct 30.1 L RDW 19.5 H Seg Neuts % (Manual) 95 H Band Neutrophils % 1 L Lymphocytes % (Manual) 1 L Abs Neuts (Manual) 11.1 H Abs Lymphs (Manual) 0.1 L Glucose 117 H Creatine Kinase < 20 L Urine Protein 30 H Urine Ketones TRACE H Urine Urobilinogen 2.0 H Ur Leukocyte Esterase SMALL H Discharge <GELY PARISI - Last Filed: 03/01/17 15:33> <WILLIAM REECE - Last Filed: 03/01/17 18:22> - Discharge Clinical Impression: Viral upper respiratory tract infection with cough Urinary tract infection Qualifiers: Urinary tract infection type: site unspecified Hematuria presence: without hematuria Qualified Code(s): N39.0 - Urinary tract infection, site not specified Fever Qualifiers: Fever type: unspecified Qualified Code(s): R50.9 - Fever, unspecified Condition: Stable Disposition: HOME, SELF-CARE Additional Instructions: Upper Respiratory Illness: You PROBABLY have a viral infection of the respiratory passages -- a "cold. " This common infection causes nasal congestion, drainage, and often sore throat and cough. It is caused by a virus and is highly contagious. The disease usually lasts a week or more, though the worst symptoms are usually over in 3 or 4 days. There is no "cure" for the viral infection -- it must run its course. If there is a complication, such as bacterial infection in the nose, sinuses, middle ear, or bronchial tubes, antibiotics may be required, but antibiotics won 't affect the virus. If you smoke, you should STOP!! Drink plenty of fluids. A humidifier may help. An expectorant medication or decongestant may make you more comfortable. Use acetaminophen or ibuprofen for fever or aches. See the doctor if fever persists over two or three days, if there is any significant worsening of your symptoms, or if you simply fail to improve as expected. Urinary Tract Infection: Your evaluation suggests that you MAY have a urinary tract infection. This is due to germs growing in the bladder. This is a common problem. This infection usually responds quickly to antibiotics. Your antibiotic should be taken exactly as prescribed. Drink plenty of fluids -- three to four quarts a day. The doctor obtained a culture, the results will be back in two days. You should call to see if a change in treatment is needed. A repeat urinalysis after you finish treatment is often recommended. The physician will let you know if further testing is required. Call the doctor if you develop fever, chills, flank pain, inability to urinate, or blood in the urine. START THE MEDICATION PRESCRIBED TOMORROW. DRINK PLENTY OF FLUIDS. TAKE TYLENOL FOR FEVER IF NEEDED. FOLLOW UP WITH DR. ALEXANDRA TOMORROW FOR RECHECK AND TO CHECK ON THE URINE CULTURE. RETURN TO THE EMERGENCY ROOM IF ANY NEW OR WORSENING SYMPTOMS. Prescriptions: Levofloxacin [Levaquin 500 mg Tablet] 500 mg PO DAILY #4 tablet Referrals: LILIBETH ALEXANDRA MD [ACTIVE STAFF] - Follow up tomorrow Scribe Attestation: 03/01/17 16:20 I personally performed the services described in the documentation, reviewed and edited the documentation which was dictated to the scribe in my presence, and it accurately records my words and actions. (WILLIAM REECE) Scribe Documentation - Scribe Written by Jaron:: Jaron Lala, 02/28/2017 15:37 acting as scribe for :: Ai <GELY PARISI - Last Filed: 03/01/17 15:33>
[2017-03-01] MEDS ORDERED: MORPHINE SULFATE 10 MG/ML INJ IV ONE ×3 (15:46→17:38)
--- NOTE | 2017-03-01 16:13 | RADIOLOGY REPORT (SQ) ---
EXAM DESCRIPTION: CHEST SINGLE VIEW COMPLETED DATE/TIME: 03/01/2017 3:54 pm REASON FOR STUDY: cough, fever, immunosuppressed COMPARISON: Chest films 01/30/2017, 01/05/2017, 12/01/2016 CT angio chest 12/10/2016 EXAM PARAMETERS: NUMBER OF VIEWS: One view. TECHNIQUE: Single frontal radiographic view of the chest acquired. RADIATION DOSE: NA LIMITATIONS: None. FINDINGS: LUNGS AND PLEURA: No opacities, masses or pneumothorax. No pleural effusion. MEDIASTINUM AND HILAR STRUCTURES: No masses. Contour normal. HEART AND VASCULAR STRUCTURES: Heart normal in size. Normal vasculature. BONES: No acute findings. HARDWARE: Right jugular central line tip superior vena cava. OTHER: No other significant finding. IMPRESSION: NO ACUTE RADIOGRAPHIC FINDING IN THE CHEST. TECHNICAL DOCUMENTATION: JOB ID: [id number] [employer]- All Rights Reserved
[2017-03-01 16:14] LABS: HEMATOCRIT 30.1 % (36.0-47.0); HEMOGLOBIN 10.4 g/dL (12.0-15.5); HGB HCT DIFFERENCE 1.1; MEAN CORPUSCULAR HEMOGLOBIN 31.5 pg (27.0-33.4); MEAN CORPUSCULAR HGB CONC 34.6 g/dL (32.0-36.0); MEAN CORPUSCULAR VOLUME 91 fl (80-97); RED BLOOD COUNT 3.31 10^6/uL (3.72-5.28); RED CELL DISTRIBUTION WIDTH 19.5 % (11.5-14.0); WHITE BLOOD COUNT 11.6 10^3/uL (4.0-10.5)
[2017-03-01 16:34] LABS: ALANINE AMINOTRANSFERASE 21 U/L (9-52); ALBUMIN 3.8 g/dL (3.5-5.0); ALKALINE PHOSPHATASE 91 U/L (38-126); ANION GAP 13 (5-19); ASPARTATE AMINO TRANSFERASE 16 U/L (14-36); BILIRUBIN,DIRECT 0.4 mg/dL (0.0-0.4); BILIRUBIN,TOTAL 0.5 mg/dL (0.2-1.3); BLOOD UREA NITROGEN 10 mg/dL (7-20); CALCIUM 9.1 mg/dL (8.4-10.2); CARBON DIOXIDE 25 mmol/L (22-30); CHLORIDE 104 mmol/L (98-107); CREATINE KINASE < 20 U/L (30-135); CREATININE RESULT 0.63 mg/dL (0.52-1.25); GLUCOSE 117 mg/dL (75-110); MAGNESIUM 1.7 mg/dL (1.6-2.3); POTASSIUM 3.7 mmol/L (3.6-5.0); SODIUM 142.4 mmol/L (137-145); TOTAL PROTEIN 6.7 g/dL (6.3-8.2)
[2017-03-01 16:35] LABS: BAND NEUTROPHILS % (MANUAL) 1 % (3-5); BASOPHILS % (MANUAL) 0 % (0-2); EOSINOPHILS % (MANUAL) 0 % (0-6); LYMPHOCYTES % (MANUAL) 1 % (13-45); TOTAL CELLS COUNTED 100
[2017-03-01 16:36] LABS: ANISOCYTOSIS 2+
[2017-03-01 16:39] LABS: POLYCHROMASIA SLIGHT; TOXIC GRANULATION SLIGHT
[2017-03-01 17:16] LABS: APPEARANCE,URINE SLIGHTLY-CLOUDY; BILIRUBIN,URINE NEGATIVE (NEGATIVE); GLUCOSE, URINE NEGATIVE (NEGATIVE); KETONES,URINE TRACE mg/dL (NEGATIVE); LEUKOCYTE ESTERASE,URINE SMALL (NEGATIVE); NITRITE,URINE NEGATIVE (NEGATIVE); PROTEIN,URINE 30 mg/dL (NEGATIVE); URINE SPECIFIC GRAVITY 1.017
[2017-03-01] MEDS ORDERED: CEFTRIAXONE 1 GM/D5W RTU 1 GM/50 ML RTUPB IV ONE (17:34)
[2017-03-01] MEDS ORDERED: LEVOFLOXACIN 500 MG TABLET PO ONE (17:34)
[2017-03-01 19:30] VITALS: BP 122/62
--- NOTE | 2017-03-01 19:45 | EKG REPORT ---
SEVERITY:- ABNORMAL ECG - SINUS TACHYCARDIA LVH WITH SECONDARY REPOLARIZATION ABNORMALITY : Confirmed by: Torsten Mayes MD 01-Mar-2017 19:44:25
== END 2017-03-01 19:32 | disposition home or self-care (01) ==
LOC: ER 14:52
DX: J06.9 Acute upper respiratory infection, unspecified (principal); B97.89 Other viral agents as the cause of diseases classified elsewhere; N39.0 Urinary tract infection, site not specified; R50.9 Fever, unspecified; R05 Cough; R11.0 Nausea; I10 Essential (primary) hypertension; R00.0 Tachycardia, unspecified; Z85.41 Personal history of malignant neoplasm of cervix uteri; Z98.84 Bariatric surgery status
CPT/HCPCS: 93005; 36591; 96376; 99284; 96375; 96365; 36415; 87040; 87086; 82550; 83735; 85025; 87088; 80053; 81001; 84484; 87186; 83605; 71010; 93010; A9270; J2270; J2405; J7030; J0696

== ENCOUNTER 2017-03-04 07:59 | Outpatient (CLI) | payer MEDICARE ==
[~2017-03-04 07:59] MED LIST changes: -FERRIC CARBOXYMALTOSE 750 MG in NORMAL SALINE 250 ML IV PRN; +NORMAL SALINE 1000 ML 1,000 ML IV PRN; -NORMAL SALINE 250 ML IV PRN
[2017-03-04 08:36] VITALS: BP 108/57
== END 2017-03-04 09:52 | disposition home or self-care (01) ==
LOC: II 07:59 → 5TH 08:00 → II 09:52
PROVIDERS: ATTEND Internal Medicine
PROC: 3E0437Z Introduction of Electrolytic and Water Balance Substance into Central Vein, Percutaneous Approach (ICD-10-PCS; principal; 2017-03-04)
DX: E86.0 Dehydration (principal); C53.9 Malignant neoplasm of cervix uteri, unspecified
CPT/HCPCS: 96360; 96375

== ENCOUNTER 2017-03-05 17:25 | Emergency (ER) | payer MEDICARE ==
--- NOTE | 2017-03-05 18:10 | ER Document Report ---
ED GI/ - General Mode of Arrival: Ambulatory Information source: Patient TRAVEL OUTSIDE OF THE [place]. IN LAST 30 DAYS: No - HPI Patient complains to provider of: Urinary retention Onset: Yesterday Location: [facility] <GELY PARISI - Last Filed: 03/05/17 23:05> <MARSHALL BARAHONA - Last Filed: 03/05/17 23:25> - General Chief Complaint: Inability to Void Stated Complaint: URINARY PROBLEM Time Seen by Provider: 03/05/17 18:09 Notes: Patient is a 56 year old female with a history of uterine cancer is presenting to the emergency department complaining of urine retention onset last night. Patient states that she feels like she has to go but her bladder does not feel full. Patient states when she does urinate, only a "trickle" comes out. Patient has had a catheter in the past. Patient states she has some nausea. Patient denies chest pain, fever, cough, sore throat, rhinorrhea, ear aches, vomiting or diarrhea. Patients PCP is Dr. Alexandra. (GELY PARISI) - Related Data Allergies/Adverse Reactions: No Known Allergies Allergy (Verified 03/05/17 17:36) Home Medications: Current Home Medications Morphine Sulfate [Morphine Sulfate ER] 60 mg PO BID PRN 03/05/17 [History] Past Medical History - General Information source: Patient - Social History Smoking Status: Never Smoker Chew tobacco use (# tins/day): No Frequency of alcohol use: None Family History: Hypertension Patient has suicidal ideation: No Patient has homicidal ideation: No - Past Medical History Cardiac Medical History: Reports: Hx Hypertension Malignancy Medical History: Reports: Hx Cervical Cancer - Uterine cancer Musculoskeltal Medical History: Reports Hx Arthritis Past Surgical History: Reports: Hx Abdominal Surgery - gastric bypass, hernia repair X2, Hx Cholecystectomy, Hx Gastric Bypass Surgery, Hx Herniorrhaphy - 2 , Hx Hysterectomy, Hx Neurologic Surgery - CARPAL TUNNEL, Other - Exploratory laparotomy for small bowel obstruction since gastric bypass - Immunizations Hx Diphtheria, Pertussis, Tetanus Vaccination: No <GELY PARISI - Last Filed: 03/05/17 23:05> Review of Systems - Review of Systems Constitutional: See HPI. denies: Fever EENT: See HPI. denies: Ear pain Cardiovascular: See HPI. denies: Chest pain Respiratory: See HPI. denies: Cough Gastrointestinal: See HPI, Nausea. denies: Diarrhea, Vomiting Genitourinary: See HPI, Retention Female Genitourinary: No symptoms reported Musculoskeletal: No symptoms reported Skin: No symptoms reported Hematologic/Lymphatic: No symptoms reported Neurological/Psychological: No symptoms reported -: Yes All other systems reviewed and negative <AILINGELY - Last Filed: 03/05/17 23:05> Physical Exam <GELY PARISI - Last Filed: 03/05/17 23:05> <MARSHALL BARAHONA - Last Filed: 03/05/17 23:25> - Vital signs Vitals: Temp Pulse Resp BP Pulse Ox 98.1 F 85 14 143/58 H 100 03/05/17 17:36 03/05/17 17:36 03/05/17 17:36 03/05/17 17:36 03/05/17 17:36 - Notes Notes: GENERAL: Alert, interacts well. No acute distress. Chronically ill appearing. HEAD: Normocephalic, atraumatic. EYES: Pupils equal, round, and reactive to light. Extraocular movements intact. ENT: Oral mucosa moist, tongue midline. NECK: Full range of motion. Supple. Trachea midline. LUNGS: Clear to auscultation bilaterally, no wheezes, rales, or rhonchi. No respiratory distress. HEART: Regular rate and rhythm. 2/6 systolic murmur, no gallops, or rubs. ABDOMEN: Soft, some tenderness to palpation in the RLQ. Non-distended. Bowel sounds present in all 4 quadrants. No distended bladder. EXTREMITIES: Moves all 4 extremities spontaneously. No edema, radial and dorsalis pedis pulses 2/4 bilaterally. No cyanosis. NEUROLOGICAL: Alert and oriented x3. Normal speech. Biceps and patellar DTRs 2+ bilaterally. PSYCH: Normal affect, normal mood. SKIN: Warm, dry, normal turgor. No rashes or lesions noted. BACK: Tender to palpation to the left lower ribs. No CVA tenderness. No lesions. (GELY PARISI) Course - Laboratory Result Diagrams: 03/05/17 18:51 03/05/17 18:51 - Consults Dr. Woodward Time consulted: 10:35 - Accepted patient at [facility] <GELY PARISI - Last Filed: 03/05/17 23:05> - Laboratory Result Diagrams: 03/05/17 18:51 03/05/17 18:51 <MARSHALL BARAHONA - Last Filed: 03/05/17 23:25> - Re-evaluation Re-evalutation: 03/05/17 23:23 CBC shows chronic anemia with hemoglobin 9.0, no leukocytosis, low platelets 129 , chemistries show hyponatremia at 132, new and worsened acute renal failure compared to prior visits with a BUN of 24 and creatinine markedly elevated at 4.96, urinalysis shows a specific gravity of 1.014, no ketones, moderate leukocyte esterase, 111 WBCs and trace bacteria, this was a catheterized specimen. Huynh catheter was placed for acute urinary retention and an area, only approximately 10 mL's of clear yellow urine were obtained, over the next several hours patient continued to only approximately output 20-30 mL's of urine. This is inappropriately low given her weight. Patient was bolused normal saline, treated with Rocephin for urinary tract infection. I did initially discuss her case with Dr. Alexandra her oncologist, he agrees with transferring her to [facility] as we do not have nephrology laborer construction or leak gang and the patient may need dialysis, patient also had her initial surgery performed there by Dr. Ro the [employer]/Onc surgeon. Patient is agreeable to this transfer and Dr. Woodward accepted her to his service. (MARSHALL BARAHONA) - Vital Signs Vital signs: Temp Pulse Resp BP Pulse Ox 98.1 F 93 18 152/64 H 100 03/05/17 22:40 03/05/17 20:49 03/05/17 22:40 03/05/17 20:49 03/05/17 22:40 - Laboratory Laboratory results interpreted by me: 03/05/17 03/05/17 03/05/17 18:30 18:51 18:51 RBC 2.79 L Hgb 9.0 L Hct 24.9 L MCHC 36.2 H RDW 18.6 H Plt Count 129 L Seg Neuts % (Manual) 82 H Band Neutrophils % 1 L Lymphocytes % (Manual) 4 L Abs Lymphs (Manual) 0.2 L Sodium 132.0 L Chloride 94 L BUN 24 H Creatinine 4.96 H Est GFR ( Amer) 11 L Est GFR (Non-Af Amer) 9 L Direct Bilirubin 0.5 H Total Protein 6.2 L Urine Protein 100 H Urine Glucose (UA) 50 H Ur Leukocyte Esterase MODERATE H Discharge <GELY PARISI - Last Filed: 03/05/17 23:05> <MARSHALL BARAHONA - Last Filed: 03/05/17 23:25> - Discharge Clinical Impression: Oliguria, Anemia associated with chemotherapy Acute renal failure Qualifiers: Acute renal failure type: unspecified Qualified Code(s): N17.9 - Acute kidney failure, unspecified Urinary tract infection Qualifiers: Urinary tract infection type: acute cystitis Hematuria presence: with hematuria Qualified Code(s): N30.01 - Acute cystitis with hematuria Cervical cancer Qualifiers: Malignant neoplasm of cervix location: unspecified location Qualified Code(s): C53.9 - Malignant neoplasm of cervix uteri, unspecified Condition: Fair Disposition: [facility] Referrals: CYNTHIA WINTERS MD [Primary Care Provider] - Follow up as needed Scribe Attestation: 03/05/17 23:25 I personally performed the services described in the documentation, reviewed and edited the documentation which was dictated to the scribe in my presence, and it accurately records my words and actions. (MARSHALL BARAHONA) Scribe Documentation - Scribe Written by Jaron:: Jaron Lala, 03/05/2017 18:30 acting as scribe for :: Gil <GELY PARISI - Last Filed: 03/05/17 23:05>
[2017-03-05] MEDS ORDERED: NORFLURANE/PENTAFLUOROPROPANE 30 ML SPRAY TP ONE (18:22)
[2017-03-05 19:07] LABS: AMORPHOUS SEDIMENT,URINE TRACE /HPF; APPEARANCE,URINE TURBID; BILIRUBIN,URINE NEGATIVE (NEGATIVE); GLUCOSE, URINE 50 mg/dL (NEGATIVE); KETONES,URINE NEGATIVE (NEGATIVE); LEUKOCYTE ESTERASE,URINE MODERATE (NEGATIVE); NITRITE,URINE NEGATIVE (NEGATIVE); PROTEIN,URINE 100 mg/dL (NEGATIVE); URINE SPECIFIC GRAVITY 1.014; UROBILINOGEN,URINE NEGATIVE mg/dL (<2.0)
[2017-03-05 19:14] LABS: HEMATOCRIT 24.9 % (36.0-47.0); HGB HCT DIFFERENCE 2.1; MEAN CORPUSCULAR HEMOGLOBIN 32.3 pg (27.0-33.4); MEAN CORPUSCULAR HGB CONC 36.2 g/dL (32.0-36.0); MEAN CORPUSCULAR VOLUME 89 fl (80-97); RED BLOOD COUNT 2.79 10^6/uL (3.72-5.28); RED CELL DISTRIBUTION WIDTH 18.6 % (11.5-14.0); WHITE BLOOD COUNT 5.7 10^3/uL (4.0-10.5)
[2017-03-05 19:31] LABS: ALANINE AMINOTRANSFERASE 29 U/L (9-52); ALBUMIN 3.5 g/dL (3.5-5.0); ALKALINE PHOSPHATASE 75 U/L (38-126); ANION GAP 16 (5-19); ASPARTATE AMINO TRANSFERASE 20 U/L (14-36); BILIRUBIN,DIRECT 0.5 mg/dL (0.0-0.4); BILIRUBIN,TOTAL 0.5 mg/dL (0.2-1.3); BLOOD UREA NITROGEN 24 mg/dL (7-20); CALCIUM 9.1 mg/dL (8.4-10.2); CARBON DIOXIDE 22 mmol/L (22-30); CHLORIDE 94 mmol/L (98-107); CREATININE RESULT 4.96 mg/dL (0.52-1.25); GLUCOSE 76 mg/dL (75-110); TOTAL PROTEIN 6.2 g/dL (6.3-8.2)
[2017-03-05] MEDS ORDERED: MORPHINE SULFATE IR 30 MG TABLET PO ONE (19:31)
[2017-03-05 19:38] LABS: BAND NEUTROPHILS % (MANUAL) 1 % (3-5); BASOPHILS % (MANUAL) 1 % (0-2); EOSINOPHILS % (MANUAL) 5 % (0-6); LYMPHOCYTES % (MANUAL) 4 % (13-45); TOTAL CELLS COUNTED 100
[2017-03-05 19:39] LABS: ANISOCYTOSIS 2+; TOXIC GRANULATION SLIGHT; TOXIC VACUOLATION PRESENT
[2017-03-05 19:41] LABS: OVALOCYTES SLIGHT; POIKILOCYTOSIS SLIGHT
[2017-03-05] MEDS ORDERED: NORMAL SALINE 1000 ML 1,000 ML IV ONE (20:21)
[2017-03-05] MEDS ORDERED: MORPHINE SULFATE 10 MG/ML INJ IV ONE ×2 (21:13→23:31)
[2017-03-05] MEDS ORDERED: CEFTRIAXONE 1 GM/D5W RTU 1 GM/50 ML RTUPB IV ONE (22:28)
[2017-03-05 23:49] VITALS: BP 113/55
== END 2017-03-05 23:55 | disposition short-term general hospital (02) ==
LOC: ER 17:25
DX: N30.01 Acute cystitis with hematuria (principal); N17.9 Acute kidney failure, unspecified; D64.81 Anemia due to antineoplastic chemotherapy; C53.9 Malignant neoplasm of cervix uteri, unspecified; T45.1X5A Adverse effect of antineoplastic and immunosuppressive drugs, initial encounter; R34 Anuria and oliguria; E87.1 Hypo-osmolality and hyponatremia; I10 Essential (primary) hypertension; Z98.84 Bariatric surgery status; Z88.5 Allergy status to narcotic agent
CPT/HCPCS: 96376; 99284; 96361; 51702; 96375; 96365; 36415; 87040; 87086; 85025; 80053; 81001; J2270; J7030; A9270; J0696

== ENCOUNTER 2017-03-24 08:28 | Outpatient (CLI) | payer MEDICARE ==
[2017-03-24] MEDS ORDERED: NORMAL SALINE 1000 ML 1,000 ML IV PRN (08:36)
[2017-03-24 08:56] VITALS: BP 136/76
== END 2017-03-24 10:40 | disposition home or self-care (01) ==
LOC: II 08:28 → 5TH 08:31 → II 10:40
PROVIDERS: ATTEND Internal Medicine
DX: C53.9 Malignant neoplasm of cervix uteri, unspecified (principal); E86.0 Dehydration
CPT/HCPCS: 96360; 96375

== ENCOUNTER 2017-03-25 07:51 | Outpatient (CLI) | payer MEDICARE ==
[2017-03-25 08:48] VITALS: BP 139/73
[2017-03-25] MEDS ORDERED: NORMAL SALINE 1000 ML 1,000 ML IV PRN (08:53)
== END 2017-03-25 09:07 | disposition home or self-care (01) ==
LOC: II 07:51 → 5TH 07:53 → II 09:07
PROVIDERS: ATTEND Internal Medicine
PROC: 3E0437Z Introduction of Electrolytic and Water Balance Substance into Central Vein, Percutaneous Approach (ICD-10-PCS; principal; 2017-03-25)
DX: E86.0 Dehydration (principal); C53.9 Malignant neoplasm of cervix uteri, unspecified
CPT/HCPCS: 96360; 96375

== ENCOUNTER 2017-06-03 04:50 | Emergency (ER) | payer MEDICARE ==
--- NOTE | 2017-06-03 05:28 | ER Document Report ---
ED Fall - General Chief Complaint: Fall Injury Stated Complaint: PAIN FROM FALL TAILBONE AND ELBOW Time Seen by Provider: 06/03/17 05:30 Mode of Arrival: Ambulatory Information source: Patient Notes: 56-year-old female presents to ED for complaint of pain to her coccyx. She states that she has a history of a fracture to her coccyx about 15 years ago. She states she fell this morning and has had pain in her coccyx since. TRAVEL OUTSIDE OF THE [place] IN LAST 30 DAYS: No - HPI Occurred: This morning Where: Indoors Context: Slipped Associated symptoms: None Location of injury/pain: Buttocks, Elbow - Bilateral Quality of pain: Sharp Severity: Moderate Pain Level: 4 - Related data Allergies/Adverse Reactions: No Known Allergies Allergy (Verified 03/05/17 17:36) Past Medical History - General Information source: Patient - Social History Smoking Status: Never Smoker Cigarette use (# per day): No Chew tobacco use (# tins/day): No Smoking Education Provided: No Frequency of alcohol use: None Drug Abuse: None Lives with: Family Family History: Hypertension Patient has suicidal ideation: No Patient has homicidal ideation: No - Past Medical History Cardiac Medical History: Reports: None, Hx Hypertension Pulmonary Medical History: Reports: None EENT Medical History: Reports: None Neurological Medical History: Reports: None Endocrine Medical History: Reports: None Renal/ Medical History: Reports: None Malignancy Medical History: Reports: Hx Cervical Cancer - Uterine cancer, Other - States she has had kidney issues for a while since she had her gastric bypa GI Medical History: Reports: Other - Bowel obstruction Musculoskeltal Medical History: Reports Hx Arthritis, Reports Hx Musculoskeletal Trauma Skin Medical History: Reports None Psychiatric Medical History: Reports: None Traumatic Medical History: Reports: Hx Fractures - Coccyx Infectious Medical History: Reports: None Past Surgical History: Reports: Hx Abdominal Surgery - gastric bypass, hernia repair X2, Hx Cholecystectomy, Hx Gastric Bypass Surgery, Hx Herniorrhaphy - 2 , Hx Hysterectomy, Hx Orthopedic Surgery - Carpal tunnel, Other - Exploratory laparotomy for small bowel obstruction since gastric bypass - Immunizations Hx Diphtheria, Pertussis, Tetanus Vaccination: No Review of Systems - Review of Systems Constitutional: No symptoms reported EENT: No symptoms reported Cardiovascular: No symptoms reported Respiratory: No symptoms reported Gastrointestinal: No symptoms reported Genitourinary: No symptoms reported Female Genitourinary: No symptoms reported Musculoskeletal: Back pain - Coccyx area, Other - Bilateral at elbow contusion Skin: No symptoms reported Hematologic/Lymphatic: No symptoms reported Neurological/Psychological: No symptoms reported -: Yes All other systems reviewed and negative Physical Exam - Vital signs Vitals: Temp Pulse Resp BP Pulse Ox 98.7 F 88 18 88/50 L 97 06/03/17 04:59 06/03/17 04:59 06/03/17 04:59 06/03/17 04:59 06/03/17 04:59 Interpretation: Hypotensive - General General appearance: Appears well, Alert Notes: Very emaciated female who has had recent chemo radiation and surgery for cervical/uterine cancer. She is also had a gastric bypass in the past with complications the martinez pouch and kidney issues. She states she was in the hospital for 35 days at that time. She is on MS Contin 30 mg a day oxycodone 15 mg 4 times a day for her chronic pain - HEENT Head: Normocephalic, Atraumatic Eyes: Normal Pupils: PERRL - Respiratory Respiratory status: No respiratory distress Chest status: Nontender Breath sounds: Normal Chest palpation: Normal - Cardiovascular Rhythm: Regular Heart sounds: Normal auscultation Murmur: No - Abdominal Inspection: Normal Distension: No distension Bowel sounds: Normal Tenderness: Nontender Organomegaly: No organomegaly - Back Back: Normal, Tender, Vertebra tenderness. No: Deformity/step-off, CVA tenderness, Scars, Scoliosis, Wounds - Coccyx area - Extremities General upper extremity: Normal inspection, Normal color, Normal ROM, Normal temperature General lower extremity: Normal inspection, Nontender, Normal color, Normal ROM , Normal temperature, Normal weight bearing. No: Robin's sign Elbow: Tender. No: Abrasion, Deformity, Dislocation, Ecchymosis, Instability, Joint effusion, Laceration, Limited ROM, Swollen bursa, Other - Neurological Neuro grossly intact: Yes Cognition: Normal Orientation: AAOx4 [place] Coma Scale Eye Opening: Spontaneous [place] Coma Scale Verbal: Oriented [place] Coma Scale Motor: Obeys Commands [place] Coma Scale Total: 15 Speech: Normal Motor strength normal: LUE, RUE, LLE, RLE Sensory: Normal - Psychological Associated symptoms: Normal affect, Normal mood - Skin Skin Temperature: Warm Skin Moisture: Dry Skin Color: Normal Course - Re-evaluation Re-evalutation: 06/03/17 06:34 Reviewed x-rays and discussed x-ray with patient. Will treat patient with a liter of fluid for her hypotension. If her blood pressure is over 90/60 will discharge home with instructions to follow-up with her primary doctor today for her low blood pressure while on blood pressure medicine. Patient is on chronic pain management of MS Contin 30 mg bid and OxyContin 15 mg 4 times a day. - Vital Signs Vital signs: Temp Pulse Resp BP Pulse Ox 98.7 F 88 21 H 108/49 L 100 06/03/17 04:59 06/03/17 04:59 06/03/17 05:30 06/03/17 05:29 06/03/17 05:30 - Diagnostic Test Radiology reviewed: Image reviewed - X-ray of lumbar spine negative for acute fractures, Reports reviewed Discharge - Discharge Clinical Impression: Pain, coccyx Fall Qualifiers: Encounter type: initial encounter Qualified Code(s): W19.XXXA - Unspecified fall, initial encounter Condition: Stable Disposition: HOME, SELF-CARE Additional Instructions: CONTUSION: Your injury has resulted in a contusion -- a crushing of the deep tissues. No injury to important structures was detected during the physician's exam. Contusions vary in the amount of pain they cause, and in the length of time required for healing. Typically, the area will become bruised, and will remain painful to touch for two or three weeks. However, most patients are back to working and playing within a few days. After the initial period of rest and cold-packs, your symptoms (together with the doctor's recommendations) will determine how rapidly you can get back to full activity. Usually this means "do what feels okay, but don't do things that hurt." If re-examination was recommended, it's important to follow up as instructed. Call the doctor or return any time if pain increases, if swelling becomes severe, if you develop numbness or weakness in an injured extremity, or if any other alarming symptoms occur. ICE PACKS: Apply ice packs frequently against the painful area. Many different schedules are recommended, such as "20 minutes on, 20 minutes off" or "one hour ice, two hours rest." If you need to work, you may need to go longer between ice treatments. You should plan to have the area ice packed AT LEAST one fourth of the time. The ice should be applied over the wrap, tape, or splint, or over a layer of cloth -- not directly against the skin. Some ice bags have a built-in cloth and can be put directly on the skin. WARM PACKS: After approximately two days, apply gentle heat (such as a heating pad or hot water bottle) for about 20 to 30 minutes about every two hours -- at least four times daily. Warmth and elevation will help you make a more rapid recovery , and will ease the pain considerably. Do not use HOT heat, and never apply heat for longer than 30 minutes. The continuous heat can invisibly damage skin and muscles -- even when no burn is seen on the surface. Damaged muscles can make you MORE sore. Call your primary doctor today to schedule a follow-up appointment for your low blood pressure. You stated you saw your doctor recently and he added a blood pressure medicine. You need to follow-up if your blood pressure is stay in this low. Make sure that you let him know you came to the emergency room and your blood pressure was 80/50. You were given a liter of IV fluids normal saline for your low blood pressure FOLLOW-UP CARE: If you have been referred to a physician for follow-up care, call the physician s office for an appointment as you were instructed or within the next two days. If you experience worsening or a significant change in your symptoms, notify the physician immediately or return to the Emergency Department at any time for re-evaluation.
[2017-06-03] MEDS ORDERED: NORMAL SALINE 1000 ML 1,000 ML IV ONE (06:10)
--- NOTE | 2017-06-03 06:12 | RADIOLOGY REPORT (SQ) ---
EXAM DESCRIPTION: L SPINE WHOLE CLINICAL HISTORY: fell, pain in coccyx area with hx of fx in past COMPARISON: None. FINDINGS: 5 views of the lumbar spine. 5 nonrib-bearing lumbar vertebrae. Prior cholecystectomy. Vertebral body height preserved. Mild loss of intervertebral disc throughout the lumbar spine. Minimal endplate spondylosis. No subluxation. No cortical step-off identified. No abnormalities of visualized sacrum. Abdominal soft tissues demonstrate atherosclerotic vascular calcification. IMPRESSION: 1. No acute abnormality of the lumbar spine by plain film criteria
[2017-06-03 08:05] VITALS: BP 104/55
== END 2017-06-03 08:19 | disposition home or self-care (01) ==
LOC: ER 04:50
DX: M53.3 Sacrococcygeal disorders, not elsewhere classified (principal); M25.529 Pain in unspecified elbow; I10 Essential (primary) hypertension; W19.XXXA Unspecified fall, initial encounter
CPT/HCPCS: 36591; 99283; 96360; 72110; J7030

== ENCOUNTER → 2017-06-05 | Outpatient (CLI) | payer MEDICARE ==
--- NOTE | 2017-06-06 09:07 | RADIOLOGY REPORT (SQ) ---
EXAM DESCRIPTION: PET CT SKULL/THIGH COMPLETED DATE/TIME: 06/05/2017 5:51 pm REASON FOR STUDY: CERVICAL CANCER C53.9 MALIGNANT NEOPLASM OF CERVIX UTERI, UNSPECIFIED COMPARISON: None. RADIONUCLIDE AND DOSE: 10.0 mCi F18 FDG The route of agent administration: Intravenous FASTING BLOOD SUGAR: 176 mg/dl CONTRAST TYPE AND DOSE: No CT contrast given. TECHNIQUE: Blood glucose level was verified. Above dose of FDG was injected intravenously. 2-D seg mented attenuation correction images were obtained from the base of the skull to the midthighs. Nonc ontrast CT images were obtained for attenuation correction and fusion with emission images. CT image s were performed without oral or intravenous contrast and are not sensitive for parenchymal lesions. A series of overlapping emission PET images were obtained. Images reviewed and manipulated at [facility] [employer] work station by the radiologist. Images stored on PACS. LIMITATIONS: None. FINDINGS: HEAD AND NECK: No areas of abnormal metabolic activity in the soft tissues of the head and neck. CHEST: There several irregular areas of ground-glass opacity. Area in the right upper lobe measuring 2.9 cm (image 81) with mean SUV 3.47. Patchy area in the perihilar left lung measuring 2.2 x 4.2 cm (image 86) with mean SUV 2.55. Area in the medial right middle lobe measuring 1.8 x 2.6 cm (image 8 6) with mean SUV value 2.37. Other smaller areas of ground-glass opacity with activity minimally abo ve baseline. ABDOMEN AND PELVIS: No areas of abnormal metabolic activity in the abdomen or pelvis. Expected physi ologic activity is present in the genitourinary system and bowel. PROXIMAL LOWER EXTREMITIES: No areas of abnormal metabolic activity in the soft tissues of the lower extremities. BONES: No abnormal metabolic activity in the visualized skeleton. ADDITIONAL CT FINDINGS: No additional significant findings on the noncontrast CT images. Previous ga stric surgery. OTHER: No other significant findings. IMPRESSION: 1. SEVERAL AREAS OF IRREGULAR GROUND-GLASS OPACITY IN BOTH LUNGS. SLIGHTLY INCREASED ACTIVITY IN A F EW AREAS WITH OTHER AREAS MINIMALLY ABOVE BASELINE. THIS COULD REPRESENT ACUTE INFLAMMATION/PNEUMONI TIS OR INFECTION. MALIGNANT PROCESS ALSO POSSIBLE. 2. NO OTHER AREAS OF ABNORMAL ACTIVITY. NO OTHER SIGNIFICANT FINDINGS IN THE HEAD, NECK, ABDOMEN, OR PELVIS. TECHNICAL DOCUMENTATION: JOB ID: [id number]- All Rights Reserved
== END ==
LOC: RAD 14:58
PROVIDERS: ATTEND Internal Medicine
DX: C53.9 Malignant neoplasm of cervix uteri, unspecified (principal)
CPT/HCPCS: 78815; A9552

== ENCOUNTER → 2017-09-05 | Outpatient (CLI) | payer MEDICARE ==
--- NOTE | 2017-09-05 10:09 | RADIOLOGY REPORT (SQ) ---
EXAM DESCRIPTION: CT CHEST WITH COMPLETED DATE/TIME: 09/05/2017 9:31 am REASON FOR STUDY: C53.9 MALIGNANT NEOPLASM OF CERVIX UTERI, UNSPECIFIED C53.9 MALIGNANT NEOPLASM OF CERVIX UTERI, UNSPECIFIED COMPARISON: 12/10/2016 TECHNIQUE: CT scan of the chest performed using helical scanning technique with dynamic intravenous contrast injection. Images reviewed with lung, soft tissue and bone windows. Reconstructed coronal and sagittal MPR images reviewed. All images stored on PACS. All CT scanners at this facility use dose modulation, iterative reconstruction, and/or weight based d osing when appropriate to reduce radiation dose to as low as reasonably achievable (ALARA). [facility]: Dose Right [facility]: CareDose [facility]: Dose Right [facility]: Teradose 4D [facility]: [employer] CONTRAST TYPE AND DOSE: 62 cc Isovue 370 RENAL FUNCTION: Creatinine-1.0 RADIATION DOSE: Total exam DLP: 899.96 LIMITATIONS: None. FINDINGS: LUNGS AND PLEURA: Stable small focal areas of scar are atelectasis in the left lingula, l eft lung base and in the biapical regions. No pneumothorax or pleural effusion. The central airways are clear. HILAR AND MEDIASTINAL STRUCTURES: No significant interval changes. HEART AND VASCULAR STRUCTURES: No aneurysm or dissection. No central pulmonary emboli. No pericardi al effusion. HARDWARE: Right [id number]-[id number] catheter, stable finding. UPPER ABDOMEN: Please see CT abdomen report. THYROID AND OTHER SOFT TISSUES: No masses. No adenopathy. BONES: The osseous structures are stable in appearance. OTHER: No other significant finding. IMPRESSION: 1 No significant interval changes since the prior examination dated 12/10/2016. TECHNICAL DOCUMENTATION: JOB ID: [id number] Quality ID # [id number]: Final reports with documentation of one or more dose reduction techniques (e.g., Au tomated exposure control, adjustment of the mA and/or kV according to patient size, use of iterative reconstruction technique) 2010 [employer]- All Rights Reserved Reading location - IP/workstation name: [email or web address]
--- NOTE | 2017-09-05 10:34 | RADIOLOGY REPORT (SQ) ---
EXAM DESCRIPTION: CT ABD/PELVIS WITH IV ONLY COMPLETED DATE/TIME: 09/05/2017 9:31 am REASON FOR STUDY: C53.9 C53.9 MALIGNANT NEOPLASM OF CERVIX UTERI, UNSPECIFIED COMPARISON: 01/30/2017 TECHNIQUE: CT scan of the abdomen and pelvis performed using helical scanning technique with dynamic intravenous contrast injection. No oral contrast. Images reviewed with lung, soft tissue, and bone windows. Reconstructed coronal and sagittal MPR images reviewed. Delayed images for evaluation of the urinary system also acquired. All images stored on PACS. All CT scanners at this facility use dose modulation, iterative reconstruction, and/or weight based d osing when appropriate to reduce radiation dose to as low as reasonably achievable (ALARA). [facility]: Dose Right [facility]: CareDose [facility]: Dose Right [facility]: Teradose 4D [facility]: [employer] CONTRAST TYPE AND DOSE: 62.0 mL Isovue 370 RENAL FUNCTION: Creatinine-1.0 RADIATION DOSE: Total exam DLP: 899.96. LIMITATIONS: None. FINDINGS: LOWER CHEST: Please see CT chest report. LIVER: Normal size. No masses. No dilated ducts. The hepatic and portal veins are patent. SPLEEN: Normal size. No focal lesions. PANCREAS: No masses. No significant calcifications. No adjacent inflammation or peripancreatic fluid collections. Pancreatic duct not dilated. GALLBLADDER: Prior cholecystectomy. ADRENAL GLANDS: No significant masses or asymmetry. RIGHT KIDNEY AND URETER: No solid masses. No significant calcifications. No hydronephrosis or hyd roureter. LEFT KIDNEY AND URETER: No solid masses. No significant calcifications. No hydronephrosis or hydr oureter. AORTA AND VESSELS: Atherosclerotic changes involve the abdominal aorta and branch vessels. No aneur ysm. No dissection. Renal arteries, SMA, celiac without stenosis. RETROPERITONEUM: No retroperitoneal adenopathy, hemorrhage or masses. BOWEL AND PERITONEAL CAVITY: Prior gastric bypass surgery. Constipation. No free fluid. APPENDIX: Not visualized. Normal. PELVIS: Interval resolution of the previously demonstrated left retroperitoneal mass/adenopathy whic h abutted the left common iliac artery. Prior hysterectomy. No free fluid. Normal bladder. ABDOMINAL WALL: No masses. No hernias. BONES: The osseous structures are stable in appearance. OTHER: No other significant finding. IMPRESSION: 1 Interval resolution of the previously demonstrated left retroperitoneal mass/adenopath y since the prior study dated 01/30/2017. 2. Additional stable findings as above. TECHNICAL DOCUMENTATION: JOB ID: [id number] Quality ID # [id number]: Final reports with documentation of one or more dose reduction techniques (e.g., Au tomated exposure control, adjustment of the mA and/or kV according to patient size, use of iterative reconstruction technique) 2010 [employer]- All Rights Reserved Reading location - IP/workstation name: [email or web address]
== END ==
LOC: RAD 09:42
PROVIDERS: ATTEND Internal Medicine
DX: C53.9 Malignant neoplasm of cervix uteri, unspecified (principal)
CPT/HCPCS: 71260; 74177; 82565